=== PATIENT | female | born 1995 | race Caucasian/White ===

== ENCOUNTER 2018-03-11 11:51 | Outpatient (REF) | payer MEDICAID, SELFPAY ==
--- NOTE | 2018-03-11 10:45 | PAPFT_PTH ---
PATIENT: Liza Yee LOC: [facility] U#:[id number] AGE/SX: 22/F ROOM: RE03/11/[address]: BREANNE Vora : 1995 BED: DIS: 03/11/2018 SPEC #: [id number] RECD: 03/11/18 12:54 STATUS: JULIUS REGiuliano #: [id number] EMMA: 03/11/18 10:[address]: Arlet Sullivan DEPT: [facility] Cytology RECD BY: Renée Moncada Tissues: 1 - CX/ENDOCX FOR PAP SMEARS Procedures: PAP THIN PREP/UVM Screening Comments: [id number]
[2018-03-14 14:52] LABS: Chlamydia Result Negative; GC Result Negative; Specimen Description CERVIX
== END 2018-03-11 12:11 ==
LOC: LBN 11:51
PROVIDERS: PCP Nurse Practitioner Family; Visit Provider Nurse Practitioner Family
DX: Z11.3 Encounter for screening for infections with a predominantly sexual mode of transmission (principal); Z12.4 Encounter for screening for malignant neoplasm of cervix
CPT/HCPCS: 87491; 87591; 88142

== ENCOUNTER 2018-07-04 14:24 | Outpatient (CLI) | payer MEDICAID, SELFPAY ==
[2018-07-04 16:02] LABS: HCG Quant, Pregnancy 17213 mIU/mL (1-3)
== END 2018-07-04 14:44 ==
PROVIDERS: PCP Nurse Practitioner Family; Visit Provider Obstetrics & Gynecology
DX: Z32.01 Encounter for pregnancy test, result positive (principal)
CPT/HCPCS: 36415; 84702

== ENCOUNTER 2018-07-06 01:20 | Outpatient (CLI) | payer MEDICAID, SELFPAY ==
--- NOTE | 2018-07-06 09:53 | DI.US_ITS ---
Many abnormalities cannot be diagnosed. A normal exam does not exclude a congenital anomaly. Radiology No. LMP: UNKNOWN Exam Date: 07/06/18 [facility] wks days on EDC ([facility]) Confirmed: HISTORY: ? ECTOPIC VS IUP, BLEEDING IN EARLY , 020.9,Z32.01,CRAMPING PREDICTED GESTATIONAL AGE NUMBER weeks with a range of week to weeks. 1 2 3 Multiple Determined by___1STUS___LMP___HISTORY Info. pertaining to fetus # PLACENTA PRESENTATION Grade Cephalic___ Anterior___Posterior___ Breech____ Right Left Transverse(head right___ Fundal___Low-lying___Previa___ Transverse(head left___ Varying BIOMETRY AMNIOTIC FLUID BPD: mm weeks Normal HC: mm weeks Oligo Polyhydramnios AC: mm weeks FL: mm weeks AMNIOTIC FLUID INDEX >26 WK CRL: mm weeks Cisterna Magna: mm CI: RUQ: LUQ Cerebellum: cm EFW: grams Percentile RLQ: LLQ Total: cms Composite AGE= wks EDC by US BIOPHYSICAL PROFILE ANATOMY IDENTIFIED SCORE 0/2 Heart: 4-Chamber___Rate:BPM LVOT: RVOT: Amniotic Fluid(>2cms)____ Stomach: Kidneys: Respirations (>30 secs) Bladder: Post. Fossa: Body Flex/Extension 3 vessel cord: Ventricles: cord insertion: Lips:____ Extremity Flex/Extension spinal morphology: Nose: Total Score= Palate: NS=not seen There is an early intrauterine gestation. A yolk sac is visualized. The pole is not identified. Note is made of a right ovarian corpus luteum cyst and there is a small quantity of free fluid in the cul-de-sac. SUMMARY: Likely viable, early intrauterine gestation with visualization of the yolk sac. The pole is not seen. A follow up examination in a week to ten days is suggested for further review regarding the viability of this gestation.
[2018-07-06 16:42] LABS: HCG Quant, Pregnancy 26084 mIU/mL (1-3)
== END 2018-07-06 01:40 ==
PROVIDERS: PCP Nurse Practitioner Family; Visit Provider Obstetrics & Gynecology
DX: Z34.91 Encounter for supervision of normal pregnancy, unspecified, first trimester (principal); O20.9 Hemorrhage in early pregnancy, unspecified; Z32.01 Encounter for pregnancy test, result positive; N83.11 Corpus luteum cyst of right ovary
CPT/HCPCS: 36415; 76801; 84702

== ENCOUNTER 2018-07-27 11:41 | Outpatient (CLI) | payer MEDICAID, SELFPAY ==
[2018-07-27 12:16] LABS: Abs Immature Grans 0.03 k/cumm (0.0-0.09); Absolute Basophil Count 0.02 k/cumm (0.0-0.2); Absolute Eosinophil Count 0.14 k/cumm (0.0-0.7); Absolute Lymphocyte Count 2.07 k/cumm (1.2-3.4); Absolute Monocyte Count 0.87 k/cumm (0.11-0.7); Absolute Neutrophil Count 8.41 k/cumm (1.2-6.7); Basophils % 0.2; Eosinophils % 1.2; HCT 35.9 % (36.0-46.0); HGB 12.5 g/dL (12.0-15.5); Immature Grans % 0.3; Lymphocytes % 17.9; Mean Corp. HGB Concentration 34.8 g/dL (32.0-36.0); Mean Corpuscular Hemoglobin 30.2 pg (27.0-33.0); Mean Corpuscular Volume 86.7 fL (80-95); Mean Platelet Volume 10.6 fL (8.0-11.0); Monocytes % 7.5; Neutrophils % 72.9; Platelet Count 246 x1000/uL (130-400); RBC 4.14 m/cumm (4.00-5.20); RBC Distribution Width 12.3 % (11.7-14.6); White Blood Cell Count 11.54 k/cumm (4.4-10.8)
[2018-07-27 13:16] LABS: TSH (W/Ref FT4) 0.95 uIU/mL (0.358-3.74)
[2018-07-28 11:23] LABS: Hepatitis B Surface Ag Negative (NEGAT); Hepatitis C Ab w Rflx HCV PCR Negative (NEGAT)
[2018-07-28 11:24] LABS: HIV-1/2 Ag & Ab Screen Negative (NEGAT)
[2018-07-28 11:32] LABS: Rubella IgG Ab (UVM) Positive; Syphilis Serology (RPR) Negative (Negative); Varicella IgG Antibody Positive
== END 2018-07-27 12:01 ==
PROVIDERS: PCP Nurse Practitioner Family; Visit Provider Advanced Practice Midwife
DX: Z34.91 Encounter for supervision of normal pregnancy, unspecified, first trimester (principal); Z11.4 Encounter for screening for human immunodeficiency virus [HIV]; Z11.59 Encounter for screening for other viral diseases; Z01.84 Encounter for antibody response examination
CPT/HCPCS: 36415; 80055; 86787; 86803; 86850; 86900; 86901; 87340; 87389; 84443; 86592; 86762

== ENCOUNTER 2018-07-27 12:53 | Outpatient (REF) | payer MEDICAID, SELFPAY ==
--- NOTE | 2018-07-27 11:20 | PAPFT_PTH ---
PATIENT: Liza Yee LOC: [facility] U#:[id number] AGE/SX: 23/F ROOM: RE07/27/[address]: Sophy George RN : 1995 BED: DIS: 07/27/2018 SPEC #: [id number] RECD: 07/27/18 13:15 STATUS: JULIUS REGiuliano #: [id number] EMMA: 07/27/18 11:[address]: Sophy George DEPT: [facility] Cytology RECD BY: Renée Moncada ENTERED: 07/27/18 13:15 SP TYPE: PAPFT OTHR DR: Arlet Sullivan, [facility] Tissues: 1 - CX/ENDOCX FOR PAP SMEARS Procedures: PAP THIN PREP/UVM Screening Comments: [id number] (CHLAMYDIA/GC)
[2018-07-27 13:25] LABS: *AMPHETAMINES SCREEN URINE Negative (Negative); *BARBITURATES SCREEN URINE Negative (Negative); *BENZODIAZEPINES SCREEN URINE Negative (Negative); Cannabinoids THC POSITIVE (Negative); Cocaine Screen,Urine Negative (Negative); METHADONE URINE SCREEN Negative (Negative); OPIATES URINE SCREEN Negative (Negative)
[2018-07-27 13:28] LABS: Tricyclic Antidepressants Negative (Negative)
[2018-07-29 14:04] LABS: Chlamydia Result Negative; GC Result Negative; Specimen Description SEE COMMENTS
[2018-07-30 12:55] LABS: Buprenorphine Negative; Norbuprenorphine Negative
== END 2018-07-27 13:13 ==
LOC: LBN 12:53
PROVIDERS: PCP Nurse Practitioner Family; Visit Provider Advanced Practice Midwife
DX: Z34.91 Encounter for supervision of normal pregnancy, unspecified, first trimester (principal); Z12.4 Encounter for screening for malignant neoplasm of cervix; Z11.51 Encounter for screening for human papillomavirus (HPV); Z11.3 Encounter for screening for infections with a predominantly sexual mode of transmission
CPT/HCPCS: 80307; 87491; 87591; 88142; 87086

== ENCOUNTER 2018-09-06 11:00 | Outpatient (CLI) | payer MEDICAID, SELFPAY ==
[2018-09-06 12:40] LABS: HCG Quant, Pregnancy 19962 mIU/mL (1-3)
[2018-09-06 21:14] LABS: D-Dimer (UVM) 298 ng/mL (<230); PTT (UVM) 28 secs (26-37)
[2018-09-07 11:54] LABS: Antithrombin 3, Funct. 89 % (85-125)
[2018-09-07 15:03] LABS: Protein C, Functional 97 % (71-199)
[2018-09-07 15:31] LABS: Protein S, Functional 64 % (64-147)
[2018-09-08 16:57] LABS: Dilute Russell Viper Venom 30.2 secs (27.2-36.9); LA Cascade Summary SEE COMMENTS
== END 2018-09-06 11:20 ==
PROVIDERS: PCP Nurse Practitioner Family; Visit Provider Advanced Practice Midwife
DX: O20.9 Hemorrhage in early pregnancy, unspecified (principal); Z82.49 Family history of ischemic heart disease and other diseases of the circulatory system
CPT/HCPCS: 36415; 81240; 85300; 85303; 85306; 85610; 85613; 85730; 85732; 86147; 81241; 84702; 85240; 85379

== ENCOUNTER 2018-09-28 09:25 | Emergency (ER) | payer MEDICAID, SELFPAY ==
[2018-09-28 09:39] VITALS: BP 116/67; PULSE 90; RESP 12; TEMP 36.8; O2SAT 99
--- NOTE | 2018-09-28 09:50 | DI.US_ITS ---
SYMPTOMS/DIAGNOSIS: RIGHT UPPER QUADRANT/RIGHT LOWER QUADRANT PAIN, EVALUATE OVARIES AND FETUS, ? APPENDICITIS OB ULTRASOUND: Many abnormalities cannot be diagnosed. A normal exam does not exclude a congenital anomaly. Radiology No. [id number] LMP: Exam Date: 09/28/18 [facility] wks days on EDC ([facility]) Confirmed: HISTORY: PREDICTED GESTATIONAL AGE NUMBER 17+1 weeks with a range of week to weeks. 1 Determined by___1STUS___LMP_X__HISTORY PLACENTA PRESENTATION Grade I Cephalic_X__ Anterior_X__Posterior___ Breech____ Right Left Transverse(head right___ Fundal___Low-lying___Previa___ Transverse(head left___ Varying BIOMETRY AMNIOTIC FLUID BPD: mm weeks Normal HC: mm weeks AC: mm weeks FL: mm weeks AMNIOTIC FLUID INDEX >26 WK CRL: mm weeks Cisterna Magna: mm CI: RUQ: LUQ Cerebellum: cm EFW: grams Percentile RLQ: LLQ Total: cms Composite AGE= wks EDC by US BIOPHYSICAL PROFILE ANATOMY IDENTIFIED SCORE 0/2 Heart: 4-Chamber___Rate:BPM 168 LVOT: RVOT: Amniotic Fluid(>2cms)____ Stomach: Kidneys: Respirations (>30 secs) Bladder: Post. Fossa: Body Flex/Extension 3 vessel cord: Ventricles: cord insertion: Lips:____ Extremity Flex/Extension spinal morphology: Nose: Total Score= Palate: NS=not seen COMMENTS: A limited examination was performed. A viable cephalic mejía is demonstrated with a cardiac rate of 168 beats per minute. There is a normal quantity of amniotic fluid. An anterior grade 1 placenta is identified. The ovaries are identified and bilateral ovarian blood flow is seen. ABDOMINAL ULTRASOUND: The aorta and vena cava are normal. The liver has a maximal diameter of 18.2 cm. The patient is status post cholecystectomy. The common duct caliber is 4.6 cm. The spleen measures 9.7 cm. The kidneys are intact; the right kidney measures 13.5, the left kidney 11.9. There is no evidence of abdominal free fluid. Evaluation of the right lower quadrant reveals nothing specific to suggest an acute appendix.
[2018-09-28 10:06] LABS: Bilirubin Negative (Negative); Blood Trace-intact (Negative); Clarity Clear; Glucose Negative (Negative); Ketones Negative (Negative); Leukocyte Esterase Negative (Negative); Nitrite Negative (Negative); Urobilinogen 0.2 EU/dL (Up TO 0.2); pH 7.5 (5-8)
[2018-09-28 10:29] LABS: Lipase 67 U/L (73-393)
[2018-09-28 10:30] LABS: WBC 0-2 HPF (0-5)
[2018-09-28 10:31] LABS: Bacteria Few HPF (Negative); C & S Indicated? No/Sq. Contamination; Casts Negative LPF (Negative); Crystals Negative HPF (Negative); Epithelial Cells Many HPF (Negative); Mucus Moderate (Negative); Other Cells Few Renal (Negative); RBC 0-2 (0-2)
[2018-09-28 10:32] LABS: Abs Immature Grans 0.01 k/cumm (0.0-0.09); Absolute Basophil Count 0.01 k/cumm (0.0-0.2); Absolute Eosinophil Count 0.08 k/cumm (0.0-0.7); Absolute Lymphocyte Count 1.79 k/cumm (1.2-3.4); Absolute Monocyte Count 0.61 k/cumm (0.11-0.7); Absolute Neutrophil Count 4.48 k/cumm (1.2-6.7); Basophils % 0.1; Eosinophils % 1.1; HCT 33.6 % (36.0-46.0); HGB 11.7 g/dL (12.0-15.5); Immature Grans % 0.1; Lymphocytes % 25.6; Mean Corp. HGB Concentration 34.8 g/dL (32.0-36.0); Mean Corpuscular Hemoglobin 30.6 pg (27.0-33.0); Mean Platelet Volume 10.9 fL (8.0-11.0); Monocytes % 8.7; Neutrophils % 64.4; Platelet Count 205 x1000/uL (130-400); RBC 3.82 m/cumm (4.00-5.20); RBC Distribution Width 12.8 % (11.7-14.6); White Blood Cell Count 6.98 k/cumm (4.4-10.8)
[2018-09-28 10:36] LABS: ALT 20 U/L (12-78); AST 11 U/L (15-37); Albumin 3.5 g/dL (3.4-5.0); Alkaline Phosphatase 43 U/L (46-116); Anion Gap 10.4 mmol/L (3-11); BUN 5 mg/dL (7-18); Bilirubin, Total 0.3 mg/dL (0.2-1.0); CO2 23.6 mmol/L (21.0-32.0); CREATININE 0.48 mg/dL (0.55-1.02); Calcium 8.8 mg/dL (8.5-10.1); Chloride 103 mmol/L (98-107); Glucose 83 mg/dL (70-100); Potassium 3.8 mmol/L (3.5-5.1); Sodium 137 mmol/L (136-145); Total Protein 7.2 g/dL (6.4-8.2)
--- NOTE | 2018-09-28 10:46 | ED.GENADUL_ITS ---
Discharge Plan Disposition Patient Disposition: [facility] ([facility]) Condition: Stable Discharge Details Chief Complaint: Abd Prob Clinical Impression: Abdominal pain Primary Care Provider: None,None ED Provider: Santos Gilliland Home Meds and New Rx's Prescriptions: No Action acetaminophen [Tylenol Extra Strength] 500 mg tablet 500 mg PO Q6H PRNRF: 0 prenat.vits,anthony,nzb-xgpy-glxiw tablet 1 tab PO DAILY RF: 0 ondansetron HCl 8 mg tablet 8 mg PO TID PRN (Reason: nausea and vomiting) Qty: 30 RF: 1 Medical Decision Making This is a pleasant 23-year-old female who is a currently 17 weeks who presents today for evaluation of mikayla pain. Pain started this morning, it is in the right lower quadrant as well as the right upper quadrant. No flank or CVA tenderness. No pelvic tenderness. She does have some subjective radiation to the back. She does have a history of cholecystectomy during her previous . She has not eaten anything today secondary to the pain and nausea. She was seen by her heater engineer helper, who recommended she come down here for evaluation rule out appendicitis. Initial exam does demonstrate reproducible right lower quadrant tenderness, worse with jumping. Negative obturator and psoas sign. Laboratory workup demonstrates reassuring vital signs, no significant white count or bandemia. Renal function and electrolytes are normal. Urinalysis shows no evidence of UTI. Ultrasound was performed and demonstrated good blood flow to both ovaries, no significant abnormality. Unfortunately they were unable to visualize the appendix. Patient's pain has continued in spite of the Tylenol, we will order MRI for further evaluation to rule out appe. 3:15 PM The patient's MRI shows no acute abnormality however the appendix was not visualized on the imaging. The patient's pain is actually noticeably worsening, continues to be right upper and right lower in location. We did contact the surgeon Dr. Archer and after her evaluation she is uncertain as to the cause of the patient's symptomatology. At this time she does not feel comfortable keeping the patient overnight here for observation with her current resources. She recommends transfer to an outlying facility such as [facility]. [facility] is currently not accepting patients. We did contact the [facility] and I spoke with , she agrees with the current plan, does recommend transfer for evaluation in their emergency department. She also recommends starting Rocephin and Flagyl which will start here. Patient will be transferred by [facility]. I have extensively reviewed the treatment plan with the patient. I have addressed all patient concerns at this time. I have also discussed the plan with the admitting physician and they agree with the current assessment and plan and have agreed to assume responsibility for the patient. All parties demonstrate verbal understanding and agreement with our assessment and plan at this time. COMMENTS: A limited examination was performed. A viable cephalic mejía is demonstrated with a cardiac rate of 168 beats per minute. There is a normal quantity of amniotic fluid. An anterior grade 1 placenta is identified. The ovaries are identified and bilateral ovarian blood flow is seen. ABDOMINAL ULTRASOUND: The aorta and vena cava are normal. The liver has a maximal diameter of 18.2 cm. The patient is status post cholecystectomy. The common duct caliber is 4.6 cm. The spleen measures 9.7 cm. The kidneys are intact; the right kidney measures 13.5, the left kidney 11.9. There is no evidence of abdominal free fluid. Evaluation of the right lower quadrant reveals nothing specific to suggest an acute appendix. Ordered By: Santos Gilliland DO xam(s) a MRI:MR abdomen wo SYMPTOMS/DIAGNOSIS: RIGHT-SIDED PAIN, ULTRASOUND NEGATIVE FOR OVARIAN PROBLEM, ? APPENDICITIS MRI OF THE ABDOMEN: Axial T2 fat-sat, coronal T2 fat-sat, coronal T1 and axial T1 pulse sequences were performed. The kidneys appear intact. The visualized portions of the l iver, and pancreas and spleen are intact. There is no evidence of bowel obstruction. The appendix is not visualized. No right lower quadrant mass or fluid collection is suggested. An intrauterine gestation is identified. SUMMARY: MRI of the abdomen and pelvis reveals no specific findings to suggest an acute appendix. Ordered By: Santos Gilliland DO CC: HPI General Date/Time Provider Initiated Documentation: 09/28/18 09:50 . HPI Narrative: This is a 23-year-old female who is a currently 17 weeks who presents today for evaluation of abdominal pain. Patient states that this morning she woke up with some abdominal pain that radiates to her rig ht back, she describes it as bilateral, however it is worse on the right, radiating down from the right upper to the right lower abdominal quadrants. She has some nausea but no associated vomiting. Pain is not worsened with movement. Improved by nothing. She denies any urinary symptoms of dysuria, urinary frequency, or hematuria. She denies any vaginal discharge, or vaginal bleeding. She denies any changes in baby's movement. Of note 1 week ago she did fall and hit her back, it was in her lower back and she had some back achiness at that time, which she states is very different from this. She went to see her heater engineer helper, within after evaluation referred her down here to rule out appendicitis. Patient denies any other complaints, no other pertinent history. She does take her vitamins. She does admit to a previous cholecystectomy during her first . Related Data Home Medications Medication Instructions Recorded Confirmed acetaminophen 500 mg tablet 500 mg PO Q6H PRN 07/04/18 09/28/18 1 tab PO DAILY 07/04/18 09/28/18 vitamin,calcium,anpyfpwn-oorf-icsrc acid tablet ondansetron HCl 8 mg tablet 8 mg PO TID PRN #30 tab 08/09/18 09/28/18 Previous Rx's Medication Instructions Recorded ondansetron HCl 8 mg tablet 8 mg PO TID PRN #30 tab 08/09/18 Allergies Allergy/AdvReac Type Severity Reaction Status Date / Time ciprofloxacin HCl Allergy Intermediate Hives Verified 09/28/18 09:42 [From Cipro] sulfamoxole Allergy Intermediate Hives Verified 09/28/18 09:42 General Stated Complaint: Abd Prob NANCY: 3 Review of Systems Review of Systems All systems reviewed & are unremarkable except as noted in HPI and below PFSH Medical History Positive test (Acute) Bartholin gland cyst (Acute) (Acute) H/O pilonidal cyst (Chronic) Cholelithiasis (Resolved 03/30/14) Contraception (Resolved) Surgical History History of tonsillectomy (Chronic) Cholecystectomy (03/30/14) Social History Smoking/Tobacco Use Status: Current every day Alcohol Intake: former Drug use: Daily Substance use type: marijuana Household members: children and other Details: daughter is named [place] Number of Children: 1 Do you feel safe at home: Yes Do you feel safe in your relationship?: Yes Female Reproductive History Menstrual control method: none History History 2 Para 1 Hx # Term Pregnancies 1 Multiple births 0 Hx # Pregnancies 0 Ectopic pregnancies 0 AB induced 0 Hx Number of Living Children 1 AB spontaneous 0 Past Pregnancies Del. Date GA/Weeks # Outcome Route Wgt Sex Labor Lgth Anesthesia Location Prov Complic 03/09/14 40 No Successful vaginal 3.289 kg Female 4.[address] george other Delivery Date: 03/09/14 On 07/27/18 @ 10:37 LELONG,ANEA 3 stiches pp. Exam Narrative Exam Narrative: 1.Const: Well-nourished, Well-developed, appearing stated age 2.Eyes: PERRL, no conjunctival injection, and symmetrical lids. 3.ENT: Atraumatic external nose and ears. Moist MM. Neck: Symmetric, trachea midline, No thyromegaly. 4.CVS: +S1/S2, No murmurs or gallops. Peripheral pulses 2+ and equal in all extremities. Brisk capillary refill in all extremities. 5.RESP: Unlabored respiratory effort. Clear to auscultation bilaterally. No wheezes rales or rhonchi 6.GI: Soft, Nondistended, No hepatosplenomegaly. No guarding or rebound. Appropriately gravid abdomen. Mild reproducible tenderness in the right upper quadrant as well as the right lower quadrant, worse in the right lower quadrant though. Minimal left sided dominant tenderness. Negative obturator and psoas sign. No flank or CVA tenderness. Pain is worsened with heel strike, as well as jumping. No significant pelvic pain on palpation 7.MSK: Normocephalic/Atraumatic, Extremities w/o deformity or ttp No cyanosis or clubbing, Normal movement of all extremities. No midline tenderness to palpation over the CTLS spine. Normal ROM in flexion, extension, side bend, and rotation. Patient has +5 out of 5 strength in the lower extremities in dorsiflexion and plantarflexion, knee flexion and extension, hip flexion and extension. There is +2 over 2 dorsalis pedis pulses bilaterally. There is normal sensation to the skin with light touch at the foot, knee, and hip. Normal saddle sensation. Good sensation over the deep sural nerve area bilaterally. Rectal exam deferred. Reflexes are +2 over 4 in the patellar reflex bilaterally. +5 out of 5 strength in the medial, ulnar, radial nerve distribution bilaterally in the hands as well as intact light touch sensation to these dermatomes on the hands 8.Skin: Warm, Dry. No rashes or lesions. 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 Sensation grossly intact, no focal neurologic deficits. 10.Psych: (AAO) x3. Appropriate mood and affect Course Vital Signs Temperature 36.8 C 09/28/18 09:39 Pulse 90 09/28/18 09:39 Respiratory Rate 12 09/28/18 09:39 Blood Pressure 116/67 09/28/18 09:39 Pulse Oximetry 99 09/28/18 09:39 Temperature 36.8 C 09/28/18 09:39 Temperature Source Temporal Artery Scan 09/28/18 09:39 Pulse 90 09/28/18 09:39 Respiratory Rate 12 09/28/18 09:39 Respiratory Effort Non-Labored 09/28/18 09:41 Blood Pressure 116/67 09/28/18 09:39 Blood Pressure Position Sitting 09/28/18 09:39 Pulse Oximetry 99 09/28/18 09:39 Oxygen Delivery Method Room Air 09/28/18 09:39 Oxygen Flow Rate 0 09/28/18 09:39 Pain Level 9 09/28/18 09:39 Lab/Test Results Lab/Test Results: Laboratory Tests Range/Units 09/28/18 09/28/18 09/28/18 10:00 10:11 10:11 Sodium (136-145) mmol/L 137 Potassium (3.5-5.1) mmol/L 3.8 Chloride (98-107) mmol/L 103 Carbon Dioxide (21.0-32.0) mmol/L 23.6 Anion Gap (3-11) mmol/L 10.4 BUN (7-18) mg/dL 5 L Creatinine (0.55-1.02) mg/dL 0.48 L Estimated GFR/1.73 m2 (mL/min/1.73m2) >= 60.00 Glucose (70-100) mg/dL 83 Calcium (8.5-10.1) mg/dL 8.8 Total Bilirubin (0.2-1.0) mg/dL 0.3 AST (15-37) U/L 11 L ALT (12-78) U/L 20 Alkaline Phosphatase (46-116) U/L 43 L Total Protein (6.4-8.2) g/dL 7.2 Albumin (3.4-5.0) g/dL 3.5 Lipase (73-393) U/L 67 L Urine Color (Yellow) Yellow Urine Clarity Clear Urine pH (5-8) 7.5 Ur Specific [place] (1.005-1.025) 1.020 Urine Protein (Negative) mg/dL Trace H Urine Ketones (Negative) mg/dL Negative Urine Blood (Negative) Trace-intact H Urine Nitrite (Negative) Negative Urine Bilirubin (Negative) Negative Urine Urobilinogen (Up TO 0.2) EU/dL 0.2 Ur Leukocyte Esterase (Negative) Negative Urine RBC (0-2) 0-2 Urine WBC (0-5) HPF 0-2 Ur Epithelial Cells (Negative) HPF Many Urine Crystals (Negative) HPF Negative Urine Bacteria (Negative) HPF Few Urine Casts (Negative) LPF Negative Urine Mucus (Negative) Moderate Urine Other (Negative) Few renal Ur Culture Indicated? No/sq. contamination Urine Glucose (Negative) mg/dL Negative
--- NOTE | 2018-09-28 10:53 | DI.MRI_ITS ---
SYMPTOMS/DIAGNOSIS: RIGHT-SIDED PAIN, ULTRASOUND NEGATIVE FOR OVARIAN PROBLEM, ? APPENDICITIS MRI OF THE ABDOMEN: Axial T2 fat-sat, coronal T2 fat-sat, coronal T1 and axial T1 pulse sequences were performed. The kidneys appear intact. The visualized portions of the liver, and pancreas and spleen are intact. There is no evidence of bowel obstruction. The appendix is not visualized. No right lower quadrant mass or fluid collection is suggested. An intrauterine gestation is identified. SUMMARY: MRI of the abdomen and pelvis reveals no specific findings to suggest an acute appendix.
[2018-09-28] MEDS: Normal Saline 1,000 ML 1000 ML IV ×2 (10:54→12:52)
[2018-09-28] MEDS: ACETAMINOPHEN 1,000 MG/100 ML BTL 400 MG IVPB (10:54)
[2018-09-28 11:03] LABS: HCG Quant, Pregnancy 12234 mIU/mL (1-3)
[2018-09-28 11:15] VITALS: BP 104/46; PULSE 69; RESP 14; TEMP 36.7; O2SAT 100
[2018-09-28] MEDS: MORPHine 10 MG/ML VIAL 4 MG IVP ×2 (12:46→14:30)
[2018-09-28 13:00] VITALS: BP 101/56; PULSE 71; RESP 20; O2SAT 100
[2018-09-28 14:15] VITALS: BP 102/47; PULSE 61; RESP 20; O2SAT 100
[2018-09-28 14:39] VITALS: BP 124/55; PULSE 71; RESP 20; O2SAT 99
[2018-09-28] MEDS: HYDROmorphone 2 MG/ML VIAL (15:04)
[2018-09-28] MEDS: cefTRIAXone 2 GM/50 ML BAG IVPB (15:05)
== END 2018-09-28 15:39 | disposition short-term general hospital (02) ==
PROVIDERS: Emergency Provider Student in an Organized Health Care Education/Training Program
DX: O26.892 Other specified pregnancy related conditions, second trimester (principal); R10.9 Unspecified abdominal pain; Z3A.17 17 weeks gestation of pregnancy
CPT/HCPCS: 36415; 76816; 80053; 83690; 96361; 96365; 96367; 96375; 99284; 74181; 76700; 81003; 81015; 84702; 85025; J0131; J2270

== ENCOUNTER 2018-10-04 00:10 | Outpatient (CLI) | payer MEDICAID, SELFPAY ==
--- NOTE | 2018-10-04 12:46 | DI.US_ITS ---
SYMPTOMS/DIAGNOSIS: ROUTINE CARE, Z34.90 OB ULTRASOUND: Predicted Gestational Age: Indication/History: 18 Wks Range: 17 to 19 Prior US done on: NA Determined by: First US LMP History EDC by prior US: 03/07/19 For multiple gestations: Baby PLACENTA: Grade: 0-I Location: X Anterior Posterior PRESENTATION: X RT LT LOW LYING PREVIA Cephalic Trans (Head RT LT ) Varied X Breech BIOMETRY: Anatomy Identified: BPD: 43 mm 19+1 wks 4 chamber Heart X Heart Rate 144 BPM HC: 165 mm 19+2 wks LVOT X Post Fossa X AC: 140 mm 19+3 wks RVOT X Ventricles X FL: 29 mm 19 wks Stomach X Nose X Bladder X Lips X Cisterna Magna: 4.3 mm CI: 80.6 Kidneys X Palate X Cerebellum: 1.95 mm 3-vessel cord X Spine X EFW: 282 grms % Cord Insertion X NS= not seen Composite Age (US) 19+2 wks Many abnormalities cannot be diagnosed. A normal exam does not exclude congenital abnormality. EDC by US 02/26/19 Amniotic Fluid Index: Normal COMMENTS: RUQ: LUQ: RLQ: LLQ: Total: cm Biophysical Profile: Score 0/2 DIEGO (>2cm) Respirations (>30 sec) Body flexion/extension Extremity flexion/extension TOTAL SCORE COMMENTS: The fetus was in variable position during the exam. The placenta is anterior. The biometric measurements correspond to 19 weeks 2 days. The amount of amniotic fluid appears normal. There is a question of a small echogenic focus in the left ventricle. No additional abnormalities are identified.
== END 2018-10-04 00:30 ==
PROVIDERS: Visit Provider Advanced Practice Midwife
DX: Z34.92 Encounter for supervision of normal pregnancy, unspecified, second trimester (principal)
CPT/HCPCS: 76805

== ENCOUNTER 2018-10-05 13:37 | Outpatient (CLI) | payer MEDICAID, SELFPAY ==
[2018-10-05 14:10] LABS: Kit/Specimen SENT
[2018-10-07 10:44] LABS: AFP 33.8 ng/mL; Calculated age at EDD 24 years; GA used in risk estimate Scan estimate; IVF Pregnancy No; Initial or repeat testing Initial testing; Insulin dependent diabetes No; Maternal Weight 185 lbs; Maternal Weight 84 kg; Number of Fetuses 1; Physician Phone Number 802-748-7300; Prev Pregnancy w/NTD No; RECOMMENDED FOLLOW UP None.; Results Summary Normal risk
[2018-10-14 18:05] LABS: Specimen WB Whole Blood
== END 2018-10-05 13:57 ==
PROVIDERS: PCP General Practice; Visit Provider Advanced Practice Midwife
DX: Z34.92 Encounter for supervision of normal pregnancy, unspecified, second trimester (principal); Z36.89 Encounter for other specified antenatal screening
CPT/HCPCS: 36415; 81329; 82105

== ENCOUNTER 2018-12-07 12:16 | Observation (INO) | payer MEDICAID, SELFPAY | END 2018-12-07 14:33 | disposition home or self-care (01) | PROVIDERS: Admitting Provider Advanced Practice Midwife; PCP General Practice; Visit Provider Advanced Practice Midwife | DX: O21.9 Vomiting of pregnancy, unspecified (principal); Z3A.26 26 weeks gestation of pregnancy; Z87.442 Personal history of urinary calculi | CPT/HCPCS: G0378 ==

== ENCOUNTER 2018-12-12 08:59 | Outpatient (CLI) | payer MEDICAID, SELFPAY ==
[2018-12-12 10:40] LABS: HGB 11.7 g/dL (12.0-15.5); Mean Corp. HGB Concentration 34.4 g/dL (32.0-36.0); Mean Corpuscular Hemoglobin 30.8 pg (27.0-33.0); Mean Corpuscular Volume 89.5 fL (80-95); Mean Platelet Volume 10.7 fL (8.0-11.0); Platelet Count 192 x1000/uL (130-400); RBC Distribution Width 12.6 % (11.7-14.6); White Blood Cell Count 11.44 k/cumm (4.4-10.8)
[2018-12-12 11:15] LABS: Glucose,1 Hr (Glucola) 72 mg/dL (80-140)
== END 2018-12-12 09:19 ==
PROVIDERS: PCP General Practice; Visit Provider Advanced Practice Midwife
DX: Z34.92 Encounter for supervision of normal pregnancy, unspecified, second trimester (principal)
CPT/HCPCS: 36415; 82950; 85027

== ENCOUNTER 2019-01-23 10:31 | Outpatient (CLI) | payer MEDICAID, SELFPAY | END 2019-01-23 10:51 | PROVIDERS: Visit Provider Advanced Practice Midwife | DX: O36.8130 Decreased fetal movements, third trimester, not applicable or unspecified (principal) | CPT/HCPCS: 59025 ==

== ENCOUNTER 2019-01-26 00:18 | Outpatient (CLI) | payer MEDICAID, SELFPAY ==
--- NOTE | 2019-01-26 13:29 | DI.US_ITS ---
SYMPTOMS/DIAGNOSIS: DECREASED MOVEMENT, , Z34.90 OB ULTRASOUND: OB ultrasound was performed utilizing limited third trimester protocol with biophysical profile. Biophysical profile score is 6 out of 8 with respirations not identified. The amniotic fluid index is 14 and there is visually a normal quantity of amniotic fluid. cardiac activity obscured at a rate of 150 bpm. Fetus is in cephalic presentation. Placenta is anterior with no evidence of placenta previa. Predicted Gestational Age: Indication/History: 34+2 Wks Range: 33+2 to 35+2 Prior US done on: Determined by: First US LMP X History EDC by prior US: 03/07/19 For multiple gestations: Baby PLACENTA: Grade: I-II Location: Anterior X Posterior PRESENTATION: RT LT LOW LYING PREVIA Cephalic X Trans (Head RT LT ) Varied Breech BIOMETRY: Anatomy Identified: BPD: mm wks 4 chamber Heart X Heart Rate 150 BPM HC: mm wks LVOT Post Fossa AC: mm wks RVOT Ventricles FL: mm wks Stomach Nose Bladder Lips Cisterna Magna: mm CI: Kidneys Palate Cerebellum: mm 3 vessel cord Spine EFW: grms % Cord Insertion NS= not seen Composite Age (US) wks Many abnormalities cannot be diagnosed. A normal exam does not exclude congenital abnormality. EDC by US Amniotic Fluid Index: Normal COMMENTS: RUQ: 5.1 LUQ: 0.80 RLQ: 3.5 LLQ: 4.3 Total: 14 cm Biophysical Profile: Score 0/2 DIEGO (>2cm) 2 Respirations (>30 sec) 0 Body flexion/extension 2 Extremity flexion/extension 2 TOTAL SCORE 6
== END 2019-01-26 00:38 ==
PROVIDERS: Visit Provider Advanced Practice Midwife
DX: O36.8131 Decreased fetal movements, third trimester, fetus 1 (principal)
CPT/HCPCS: 76815; 76819

== ENCOUNTER 2019-02-01 01:17 | Outpatient (CLI) | payer MEDICAID, SELFPAY ==
--- NOTE | 2019-02-01 10:31 | DI.US_ITS ---
SYMPTOMS/DIAGNOSIS: BPP 6/8 ON PREVIOUS US, Z34.90-SUPERVISION OF NORMAL OB ULTRASOUND, LIMITED: Predicted Gestational Age: Indication/History: 35+1 Wks Range: to Prior US done on: Determined by: First US LMP History EDC by prior US: 03/07/19 For multiple gestations: Baby PLACENTA: Grade: II Location: X Anterior Posterior PRESENTATION: RT LT LOW LYING PREVIA Cephalic X Trans (Head RT LT ) Varied Breech BIOMETRY: Anatomy Identified: BPD: mm wks 4 chamber Heart Heart Rate 147 BPM HC: mm wks LVOT Post Fossa AC: mm wks RVOT Ventricles FL: mm wks Stomach Nose Bladder Lips Cisterna Magna: mm CI: Kidneys Palate Cerebellum: mm 3 vessel cord Spine EFW: grms % Cord Insertion NS= not seen Composite Age (US) wks Many abnormalities cannot be diagnosed. A normal exam does not exclude congenital abnormality. EDC by US Amniotic Fluid Index: [place]lig[place] Normal Polyhydramnios RUQ: LUQ: RLQ: LLQ: Total: cm Biophysical Profile: Score 0/2 DIEGO (>2cm) 2/2 Respirations (>30 sec) 0/2 Body flexion/extension 2/2 Extremity flexion/extension 2/2 TOTAL SCORE 6/8 COMMENTS: OB ultrasound was performed for a biophysical profile score. The biophysical profile score is 6/8. No respirations were observed. The placenta is anterior with no evidence of placenta previa. The fetus is in the cephalic presentation and cardiac rate is 147 bpm.
== END 2019-02-01 01:37 ==
PROVIDERS: Visit Provider Advanced Practice Midwife
DX: Z34.93 Encounter for supervision of normal pregnancy, unspecified, third trimester (principal); Z36.2 Encounter for other antenatal screening follow-up
CPT/HCPCS: 76815; 76819

== ENCOUNTER 2019-02-01 10:51 | Outpatient (CLI) | payer MEDICAID, SELFPAY | END 2019-02-01 11:11 | PROVIDERS: Visit Provider Advanced Practice Midwife | DX: O36.8130 Decreased fetal movements, third trimester, not applicable or unspecified (principal) | CPT/HCPCS: 59025 ==

== ENCOUNTER 2019-02-03 08:43 | Outpatient (CLI) | payer MEDICAID, SELFPAY | END 2019-02-03 09:03 | PROVIDERS: Visit Provider Advanced Practice Midwife | DX: O36.8130 Decreased fetal movements, third trimester, not applicable or unspecified (principal) | CPT/HCPCS: 59025 ==

== ENCOUNTER 2019-02-06 07:54 | Outpatient (CLI) | payer MEDICAID, SELFPAY | END 2019-02-06 08:14 | PROVIDERS: Visit Provider Advanced Practice Midwife | DX: O36.8130 Decreased fetal movements, third trimester, not applicable or unspecified (principal) | CPT/HCPCS: 80307; 59025 ==

== ENCOUNTER 2019-02-06 12:31 | Outpatient (REF) | payer MEDICAID, SELFPAY ==
[2019-02-06 13:43] LABS: *AMPHETAMINES SCREEN URINE Negative (Negative); *BARBITURATES SCREEN URINE Negative (Negative); *BENZODIAZEPINES SCREEN URINE Negative (Negative); Cannabinoids THC POSITIVE (Negative); Cocaine Screen,Urine Negative (Negative); METHADONE URINE SCREEN Negative (Negative); OPIATES URINE SCREEN Negative (Negative)
[2019-02-06 13:44] LABS: Tricyclic Antidepressants Negative (Negative)
[2019-02-08 14:09] LABS: Buprenorphine Negative; Norbuprenorphine Negative
== END 2019-02-06 12:51 ==
LOC: LBN 12:31
PROVIDERS: Visit Provider Advanced Practice Midwife
DX: Z34.93 Encounter for supervision of normal pregnancy, unspecified, third trimester (principal); Z36.85 Encounter for antenatal screening for Streptococcus B
CPT/HCPCS: 80307; 59025; 87081

== ENCOUNTER 2019-02-09 09:07 | Outpatient (CLI) | payer MEDICAID, SELFPAY | END 2019-02-09 09:27 | PROVIDERS: Visit Provider Advanced Practice Midwife | DX: R69 Illness, unspecified (principal) | CPT/HCPCS: 59025 ==

== ENCOUNTER 2019-02-14 07:42 | Outpatient (CLI) | payer MEDICAID, SELFPAY | END 2019-02-14 08:02 | PROVIDERS: Visit Provider Advanced Practice Midwife | DX: O36.8130 Decreased fetal movements, third trimester, not applicable or unspecified (principal) | CPT/HCPCS: 59025 ==

== ENCOUNTER 2019-02-16 07:33 | Outpatient (CLI) | payer MEDICAID, SELFPAY | END 2019-02-16 07:53 | LOC: LBN 07:35 → BCD 07:37 | PROVIDERS: Visit Provider Advanced Practice Midwife | DX: O36.8130 Decreased fetal movements, third trimester, not applicable or unspecified (principal) | CPT/HCPCS: 59025 ==

== ENCOUNTER 2019-02-17 11:59 | Inpatient (IN) | payer MEDICAID, SELFPAY ==
[2019-02-17 12:28] LABS: HCT 38.8 % (36.0-46.0); HGB 13.6 g/dL (12.0-15.5); Mean Corp. HGB Concentration 35.1 g/dL (32.0-36.0); Mean Corpuscular Hemoglobin 30.8 pg (27.0-33.0); Mean Platelet Volume 11.8 fL (8.0-11.0); Platelet Count 157 x1000/uL (130-400); RBC 4.41 m/cumm (4.00-5.20); RBC Distribution Width 12.9 % (11.7-14.6); White Blood Cell Count 11.44 k/cumm (4.4-10.8)
[2019-02-17] MEDS: Oxytocin 10 UNITS/ML VIAL IM (13:25)
[2019-02-17] MEDS: Acetaminophen 325 MG TAB 650 MG PO ×3 (14:33→22:37)
[2019-02-17] MEDS: Ibuprofen 600 MG TAB PO ×2 (14:34→20:44)
[2019-02-17] MEDS: Hamamelis Leaf/Glycerin 100 EACH BOX PR (18:43)
[2019-02-17] MEDS: Calcium Carbonate *TUMS* 500 MG CHEW PO (19:21)
[2019-02-18] MEDS: Ibuprofen 600 MG TAB PO ×3 (02:40→16:32)
[2019-02-18] MEDS: Acetaminophen 325 MG TAB 650 MG PO ×3 (02:40→16:33)
[2019-02-18] MEDS: miSOPROStol 200 MCG TAB 400 MCG SL (03:59)
[2019-02-18] MEDS: Hamamelis Leaf/Glycerin 100 EACH BOX PR (07:46)
[2019-02-18 08:22] LABS: Abs Immature Grans 0.07 k/cumm (0.0-0.09); Absolute Basophil Count 0.02 k/cumm (0.0-0.2); Absolute Eosinophil Count 0.15 k/cumm (0.0-0.7); Absolute Lymphocyte Count 2.38 k/cumm (1.2-3.4); Absolute Monocyte Count 0.97 k/cumm (0.11-0.7); Absolute Neutrophil Count 13.41 k/cumm (1.2-6.7); Basophils % 0.1; Eosinophils % 0.9; HGB 12.3 g/dL (12.0-15.5); Immature Grans % 0.4; Mean Corp. HGB Concentration 34.2 g/dL (32.0-36.0); Mean Corpuscular Hemoglobin 30.3 pg (27.0-33.0); Mean Corpuscular Volume 88.7 fL (80-95); Mean Platelet Volume 12.2 fL (8.0-11.0); Monocytes % 5.7; Neutrophils % 78.9; Platelet Count 166 x1000/uL (130-400); RBC 4.06 m/cumm (4.00-5.20); RBC Distribution Width 12.8 % (11.7-14.6); White Blood Cell Count 16.99 k/cumm (4.4-10.8)
[2019-02-19] MEDS: Ibuprofen 600 MG TAB PO ×2 (00:05→07:02)
[2019-02-19] MEDS: Acetaminophen 325 MG TAB 650 MG PO ×2 (00:05→07:01)
== END 2019-02-19 12:00 | disposition home or self-care (01) | DRG 807 ==
LOC: OBS 12:09
PROVIDERS: Admitting Provider Advanced Practice Midwife; Visit Provider Advanced Practice Midwife
DX: O71.4 Obstetric high vaginal laceration alone (principal); Z37.0 Single live birth; Z3A.37 37 weeks gestation of pregnancy; Z83.2 Family history of diseases of the blood and blood-forming organs and certain disorders involving the immune mechanism; O99.334 Smoking (tobacco) complicating childbirth; F17.210 Nicotine dependence, cigarettes, uncomplicated
CPT/HCPCS: 36415; 85027; 86850; 86900; 86901; 59025; 85025; J2590

== ENCOUNTER 2019-03-16 13:22 | Outpatient (CLI) | payer MEDICAID, SELFPAY ==
[2019-03-16 14:14] LABS: HCT 38.4 % (36.0-46.0); HGB 13.3 g/dL (12.0-15.5); Mean Corp. HGB Concentration 34.6 g/dL (32.0-36.0); Mean Corpuscular Volume 89.5 fL (80-95); Mean Platelet Volume 10.2 fL (8.0-11.0); Platelet Count 292 x1000/uL (130-400); RBC 4.29 m/cumm (4.00-5.20); RBC Distribution Width 12.2 % (11.7-14.6); White Blood Cell Count 8.63 k/cumm (4.4-10.8)
== END 2019-03-16 13:42 ==
PROVIDERS: Visit Provider Obstetrics & Gynecology
DX: Z30.2 Encounter for sterilization (principal); Z01.818 Encounter for other preprocedural examination; Z01.812 Encounter for preprocedural laboratory examination
CPT/HCPCS: 36415; 85027; 86850; 86900; 86901

== ENCOUNTER 2019-03-22 08:08 | Day surgery (SDC) | payer MEDICAID, SELFPAY ==
[2019-03-22] VITALS (8 sets, daily range): BP systolic 97–115; BP diastolic 53–77; PULSE 54–85; RESP 14–21; TEMP 36.2–36.6; O2SAT 96–98
[2019-03-22] MEDS: Lactated Ringers 1,000 ML 125 ML IV ×3 (08:38→10:43)
--- NOTE | 2019-03-22 10:23 | FALL_PTH ---
PATIENT: Liza Yee LOC: [facility] U#:[id number] AGE/SX: 24/F ROOM: RE03/22/[address]: Benji Godfrey MD : 1995 BED: DIS: 03/22/2019 SPEC #: [id number] RECD: 03/22/19 12:57 STATUS: JULIUS REQ #: [id number] EMMA: 03/22/19 10:[address]: Benji Godfrey DEPT: Surgical Specimen RECD BY: Renée Moncada ENTERED: 03/22/19 12:59 SP TYPE: Fall OTHR DR: None Tissues: 1 - FALLOPIAN TUBE (STERILIZATION) 2 - FALLOPIAN TUBE (STERILIZATION) Procedures: GROSS AND MICRO LEVEL 2 Comments: [id number]
[2019-03-22] MEDS: Bupivacaine 0.25% Pres-Free 30 ML VIAL (10:35)
--- NOTE | 2019-03-22 11:02 | W.PM.OP ---
Date of service: 03/22/19 Time of Service: 11:02 Operative Note Operative Note DATE OF PROCEDURE: 03/22/19 PRE-OP DIAGNOSIS: Multiparity and desire for permanent sterilization POST-OP DIAGNOSIS: same PROCEDURE: Laparoscopic bilateral salpingectomy SURGEON: Benji Godfrey ASSISTING SURGEON: Salma Simon ANESTHESIA: GETA ESTIMATED BLOOD LOSS: 0 PATHOLOGY: other (Bilateral salpingectomy) COMPLICATIONS: None Patient was transported to: PACU Patient's condition: stable Findings: Normal uterus, tubes and ovaries. Procedure Description: The patient was taken to the operating room and after adequate general anesthesia was obtained patient had been placed in supine position. The patient was prepped and draped in usual sterile manner. The skin is obtains tissues at the umbilicus were infiltrated with 0.25% Marcaine solution. A small infraumbilical skin incision was then made with a #15 blade scalpel. Sharp dissection was carried down to the underlying layer fascia. The fascia was grasped and elevated with 2 Kostas clamps and incised sharply with a scalpel. The peritoneum was entered with hemostats and S retractors were placed. 2 sutures of 0 Vicryl were placed on either side of the fascial incision. A 10 mm balloon trocar was advanced and secured in place. The pneumoperitoneum to approximately 15 mmHg was established. Two 5 mm ports were placed in the right and left lower quadrant both under direct visualization. Uterus tubes and ovaries were normal in appearance. The appendix is visualized and was noted to be normal in appearance. The rest of the abdominal cavity was normal in appearance. The left fallopian tube was grasped and elevated with a grasper. Dissection was carried across the mesosalpinx with a LigaSure device. Dissection was carried to the proximal tube which was transected. The tube was removed from the abdomen. Attention was then turned to the opposite side where similar procedure was carried out. Excellent hemostasis was noted. Both fallopian tubes were submitted to pathology. The 2 5 mm ports were removed under direct visualization. The abdomen was desufflated and the umbilical trocar was removed. The fascia at the umbilicus was closed with 2 previously placed sutures of 0 Vicryl. A second banpkc-mn-sitql suture was used to complete closure of the fascia. The skin at each incision was closed with interrupted sutures of 4 Monocryl and Dermabond was applied. Procedure was concluded at this point. Sponge, lap and needle counts were correct at the conclusion of the procedure and the patient was transferred to PACU in stable condition.
[2019-03-22] MEDS: oxyCODONE 5 mg/Acetaminophen 325 mg TAB PO ×2 (12:27→13:23)
== END 2019-03-22 13:49 | disposition home or self-care (01) ==
PROVIDERS: Visit Provider Obstetrics & Gynecology
PROC: (CPT 58661; principal; 2019-03-22 09:00)
DX: Z30.2 Encounter for sterilization (principal)
CPT/HCPCS: 58661; 36415; 86850; 86900; 86901; 88302; J0131; J1885; J2250; J2405; J3010

== ENCOUNTER 2019-03-30 17:27 | Outpatient (REF) | payer MEDICAID, SELFPAY ==
--- NOTE | 2019-03-30 13:15 | PAPFT_PTH ---
PATIENT: Liza Yee LOC: [facility] U#:[id number] AGE/SX: 24/F ROOM: RE03/30/[address]: Sade Morris : 1995 BED: DIS: 03/30/2019 SPEC #: [id number] RECD: 03/30/19 17:36 STATUS: JULIUS REQ #: [id number] EMMA: 03/30/19 13:[address]: Sade Morris DEPT: [facility] Cytology RECD BY: Renée Moncada ENTERED: 03/30/19 17:36 SP TYPE: PAPFT OTHR DR: None Tissues: 1 - CX/ENDOCX FOR PAP SMEARS Procedures: PAP THIN PREP/UVM Screening Comments: [id number]
== END 2019-03-30 17:47 ==
LOC: LBN 17:27
PROVIDERS: Visit Provider Advanced Practice Midwife
DX: Z12.4 Encounter for screening for malignant neoplasm of cervix (principal)
CPT/HCPCS: 88142

== ENCOUNTER 2019-05-04 15:37 | Outpatient (REF) | payer MEDICAID, SELFPAY ==
--- NOTE | 2019-05-04 14:20 | ENDO_PTH ---
PATIENT: Liza Yee LOC: [facility] U#:[id number] AGE/SX: 24/F ROOM: RE05/04/[address]: Benji Godfrey MD : 1995 BED: DIS: 05/04/2019 SPEC #: [id number] RECD: 05/04/19 17:28 STATUS: JULIUS REQ #: [id number] EMMA: 05/04/19 14:[address]: Benji Godfrey DEPT: Surgical Specimen RECD BY: Renée Moncada ENTERED: 05/04/19 17:29 SP TYPE: Endo OTHR DR: None Tissues: 1 - ENDOCERVICAL BX/CURRETTE 2 - CERVICAL BIOPSY Procedures: GROSS AND MICRO LEVEL 4 Comments: [id number]
== END 2019-05-04 15:57 ==
LOC: LBN 15:37
PROVIDERS: Visit Provider Obstetrics & Gynecology
DX: N87.9 Dysplasia of cervix uteri, unspecified (principal); N88.8 Other specified noninflammatory disorders of cervix uteri
CPT/HCPCS: 88305

== ENCOUNTER 2019-08-29 14:25 | Emergency (ER) | payer MEDICAID, SELFPAY ==
[2019-08-29 14:31] VITALS: BP 145/67; PULSE 74; RESP 16; TEMP 36.4; O2SAT 98
--- NOTE | 2019-08-29 14:44 | ED.GENADUL_ITS ---
Discharge Plan Disposition Patient Disposition: HOME Condition: Stable Discharge Details Chief Complaint: DentalOral Clinical Impression: Dental infection Primary Care Provider: None,None ED Provider: Gallito Guadalupe Home Meds and New Rx's Prescriptions: New penicillin V potassium 500 mg tablet 500 mg PO TID Qty: 30 RF: 0 No Action acetaminophen [Tylenol Extra Strength] 500 mg tablet 500 mg PO Q6H PRNRF: 0 prenat.vits,anthony,ina-dbhi-pflyf tablet 1 tab PO DAILY RF: 0 Discharge Instructions Instructions: Dental Abscess (ED) Additional Instructions: Penicillin as directed. Cool and/or warm compresses every 2 hours for 20 minutes. Please watch for new or worsening symptoms and return to the ER for any concerns. I would like you to reach out to a dentist using the dental list provided for prompt outpatient dental reassessment Medical Decision Making 24-year-old female presents with left upper dental discomfort. Tooth #14 does appear with fracture and carry no obvious pointing abscess. She does have mild facial swelling. Will provide antibiotic prescription. Will also provide dental list that she may expedite outpatient dental care. She does admit to travel over 14 days ago, is afebrile, was not in a high risk area, and has had no contact with any known coronavirus patients. At this time she would not be considered a person of interest and does not need additional testing. Patient understands and is agreeable to this plan Medical Records Medical records reviewed: Yes I reviewed the patient's medical records. HPI General Mode of arrival: ambulatory . Date/Time Provider Initiated Documentation: 08/29/19 14:25 . Limitations to Documentation: no limitations . Information obtained by: patient . HPI Narrative: This is a 24-year-old female who reports that she broke her tooth, left upper, between 1 and 2 years ago, now having pain and swelling over the past 24 hours. Took nuya-fnn-uzuutso medications with little symptoms. She is currently breast-feeding and she is concerned about an infection. Reports the pain is moderate, swelling is minimal, and does radiate down into her neck on the left side. She denies headache, fevers, ear pain. She does report that her family has had nasal congestion and a mild dry cough, she too has the symptoms, travel to [facility] over 14 days ago. She does state that those symptoms are improving. Related Data Home Medications Medication Instructions Recorded Confirmed acetaminophen 500 mg tablet 500 mg PO Q6H PRN 07/04/18 08/29/19 prenat.vits,anthony,cdg-fytz-zvgkp 1 tab PO DAILY 07/04/18 08/29/19 penicillin V potassium 500 mg PO TID #30 tab 08/29/19 Previous Rx's Medication Instructions Recorded penicillin V potassium 500 mg PO TID #30 tab 08/29/19 Allergies Allergy/AdvReac Type Severity Reaction Status Date / Time ciprofloxacin HCl Allergy Intermediate Hives Verified 08/29/19 14:37 [From Cipro] sulfamoxole Allergy Intermediate Hives Verified 08/29/19 14:37 General Stated Complaint: DentalOral NANCY: 4 Review of Systems Constitutional Constitutional: Denies fever(s) and Denies headache(s) Eyes Eyes: Denies eye discharge ENT Ears, Nose, Mouth, and Throat: Reports dental pain, Denies otalgia, Denies headache(s) and Denies sore throat Cardiovascular Cardiovascular: Denies chest pain and Denies dyspnea Respiratory Respiratory: Reports cough and Denies dyspnea Gastrointestinal Gastrointestinal: Denies abdominal pain, Denies nausea and Denies vomiting Musculoskeletal Musculoskeletal: Denies myalgias Integumentary/Breasts Skin/Breast: Denies rash Neurologic Neurologic: Denies headache(s) ON LICENSE OF [facility] Medical History Cholelithiasis (Resolved 03/30/14) Contraception (Resolved) Marijuana smoker (Acute) Positive test (Acute) (Acute) (Acute) Tobacco dependence (Chronic) Surgical History Bartholin gland cyst (Acute) Cholecystectomy (03/30/14) H/O pilonidal cyst (Chronic) History of tonsillectomy (Chronic) w/ adnoidectomy [place] teeth extracted (Acute) Family History Mother Personal history of gallstones cholecystectomy in her 20's Family history of gallstones several women required surgery at fairly young age Abnormal Pap smear of cervix Sister Abnormal Pap smear of cervix Other Cancer Diabetes Heart disease Social History Smoking/Tobacco Use Status: Current every day Alcohol Intake: former Drug use: Occasionally Substance use type: marijuana Household members: children and other Details: daughter is named Goode Number of Children: 1 Do you feel safe at home: Yes Do you feel safe in your relationship?: Yes Female Reproductive History Menstrual control method: none History History 2 Para 2 Hx # Term Pregnancies 2 Multiple births 0 Hx # Pregnancies 0 Ectopic pregnancies 0 AB induced 0 Hx Number of Living Children 2 AB spontaneous 0 Past Pregnancies Del. Date GA/Weeks # Outcome Route Wgt Sex Labor Lgth Anesthes ia Location Prov Complic 03/09/14 40 No Successful vaginal 3.289 kg Female 4.[address] george other 02/17/19 37 No Successful vaginal 3.062 kg Male A rasheed NEO Hussein Delivery Date: 03/09/14 3 stiches ppOtilio PKCHAPIS JAMES Delivery Date: 02/17/19 No notes to display Exam Const General: cooperative, healthy appearing, comfortable and no acute distress Orientation: alert and awake HENMT Head: normal to inspection, normocephalic and atraumatic Ears: external ears normal, TM's normal bilaterally and EAC's normal Face and sinus: tenderness (Mild left maxillary region with minimal swelling, no pointing abscess) Mouth: oral mucosae normal and moist mucous membranes Teeth and gingiva: fair dentition and other (Tooth #14 with a decay and fracture. Tenderness. No pointing abscess.) Throat: posterior oropharynx normal Eyes Conjunctivae: conjunctivae normal Neck Neck: normal visual inspection, full ROM, trachea midline and supple Lymphatic: lymphadenopathy (Mild left superior-anterior cervical lymphadenopathy) Resp Effort & Inspection: normal respiratory effort and able to speak in complete sentences Auscultation: clear to auscultation bilaterally Cardio Rate: regular rate Rhythm: regular rhythm Skin General skin exam: no rashes or lesions noted Neuro General: patient alert, patient awake, moves all extremities and no focal motor deficits Motor: muscle tone normal throughout Sensory Exam: no sensory deficits noted Psych Appearance: grossly normal Mental Status: mental status grossly normal Course Vital Signs Vital signs: Vital Signs Temperature 36.4 C L 08/29/19 14:31 Pulse 74 08/29/19 14:31 Respiratory Rate 16 08/29/19 14:31 Blood Pressure 145/67 H 08/29/19 14:31 Pulse Oximetry 98 03/17/20 14:31 Temperature 36.4 C L 08/29/19 14:31 Pulse 74 08/29/19 14:31 Respiratory Rate 16 08/29/19 14:31 Respiratory Effort Non-Labored 08/29/19 14:31 Blood Pressure 145/67 H 08/29/19 14:31 Blood Pressure Position Sitting 08/29/19 14:31 Pulse Oximetry 98 08/29/19 14:31 Oxygen Delivery Method Room Air 08/29/19 14:31 Oxygen Flow Rate 0 08/29/19 14:31 Pain Level 8 08/29/19 14:31
== END 2019-08-29 14:50 | disposition home or self-care (01) ==
LOC: ER 14:52
PROVIDERS: Emergency Provider Physician Assistant
DX: R68.84 Jaw pain (principal); K04.7 Periapical abscess without sinus; R22.0 Localized swelling, mass and lump, head
CPT/HCPCS: 99283

== ENCOUNTER 2019-11-08 22:28 | Outpatient (REF) | payer MEDICAID, SELFPAY ==
[2019-11-13 13:18] LABS: Chlamydia Result Negative (Negative); GC Result Negative (Negative)
== END 2019-11-08 22:48 ==
LOC: LBN 22:28
PROVIDERS: Visit Provider Nurse Practitioner Women's Health
DX: Z11.3 Encounter for screening for infections with a predominantly sexual mode of transmission (principal)
CPT/HCPCS: 87491; 87591

== ENCOUNTER 2020-02-15 14:35 | Outpatient (REF) | payer MEDICAID, SELFPAY ==
[2020-02-17 22:22] LABS: Patient Race White; SARS-CoV-2 RNA Undetected (Undetected); SARS-CoV-2 Specimen Source Nasopharynx
== END 2020-02-15 14:55 ==
LOC: NCHCN 14:35
PROVIDERS: Visit Provider Nurse Practitioner Family
DX: Z20.828 Contact with and (suspected) exposure to other viral communicable diseases (principal)
CPT/HCPCS: U0003

== ENCOUNTER 2020-04-02 14:14 | Outpatient (REF) | payer MEDICAID, SELFPAY ==
[2020-04-04 17:44] LABS: COVID-19 RT-PCR Result NEGATIVE (Negative)
== END 2020-04-02 14:34 ==
LOC: NCHCN 14:14
PROVIDERS: Visit Provider Nurse Practitioner Family
DX: R05 Cough (principal)
CPT/HCPCS: U0003

== ENCOUNTER 2020-04-19 09:59 | Emergency (ER) | payer MEDICAID, SELFPAY ==
[2020-04-19 10:09] VITALS: BP 126/75; PULSE 67; RESP 18; TEMP 36.8; O2SAT 100
--- NOTE | 2020-04-19 11:09 | ED.GENADUL_ITS ---
Discharge Plan Disposition Patient Disposition: HOME Condition: Stable Discharge Details Clinical Impression: Headache Primary Care Provider: Charly Hopper ED Provider: Louie Morris Home Meds and New Rx's Prescriptions: Discontinued acetaminophen [Tylenol Extra Strength] 500 mg tablet 500 mg PO Q6H PRNRF: 0 Discharge Instructions Instructions: Migraine Headache (ED) Additional Instructions: Please take ibuprofen over the counter. Take 600mg by mouth every 6 hours as needed for pain. Please take acetaminophen (tylenol) - 650mg every 6 hours by mouth as needed for pain. Please contact your primary care physician to arrange follow-up. Return to the ER for any worsening or new concerning symptoms. Stand Alone Forms: Work Release Referrals: Charly Hopper [employer]INE[employer] [Primary Care Provider] - Medical Decision Making 11:12 -- 25-year-old female with history of migraine headaches, here with headache over the past 2 days consistent with prior severe migraines. Neurologically intact. Plan to give IV fluid, Compazine IV, Benadryl IV, Toradol IV. 13:30 -- Patient reassessed and feeling much better. Plan for outpatient follow-up. Patient is not currently with PCP. I will ask care management to assist in arranging PCP follow-up. Disposition decision was made weighing the risks and benefits of hospitalization versus outpatient treatment, the risk for further decompensation, and the patient's wishes. The patient was stable and requested discharge. Prior to discharge, usual and customary return precautions were reviewed with the patient - this included follow-up instructions and reason to return to the emergency department if condition worsens, does not improve as expected, or other new concerns arise. HPI General Mode of arrival: ambulatory . Date/Time Provider Initiated Documentation: 04/19/20 10:43 . Limitations to Documentation: no limitations . Information obtained by: patient . HPI Narrative: 25-year-old female with history of migraine headaches, smoker, here with chief complaint of migraine headache. Patient notes she has had a headache for the past 3 days, headache is worse this morning. She has associated nausea and vomiting. Headache worse with bright light. Patient notes last headache that she had this bad was 2 years ago. Headache is typical for her migraine headaches. She denies numbness, tingling, fever, visual change. No neck pain or stiffness. Related Data Allergies Allergy/AdvReac Type Severity Reaction Status Date / Time ciprofloxacin HCl Allergy Intermediate Hives Verified 04/19/20 10:12 [From Cipro] sulfamoxole Allergy Intermediate Hives Verified 04/19/20 10:12 General Stated Complaint: Headache NANCY: 3 Review of Systems All systems reviewed & are unremarkable except as noted in HPI and below Constitutional Constitutional: Denies fever(s) Neurologic Neurologic: Reports as per HPI [facility] Medical History (Updated 04/19/20 @ 13:32 by Louie Morris MD) Cholelithiasis (03/30/14) Contraception Internal and external thrombosed hemorrhoids Tobacco dependence Surgical History Bartholin gland cyst Cholecystectomy (03/30/14) H/O pilonidal cyst History of tonsillectomy w/ adnoidectomy [place] teeth extracted Family History Mother Personal history of gallstones cholecystectomy in her 20's Family history of gallstones several women required surgery at fairly young age Abnormal Pap smear of cervix Sister Abnormal Pap smear of cervix Other Cancer Diabetes Heart disease Social History Smoking/Tobacco Use Status: Current every day Smoking risk assessment performed?: Yes Alcohol Intake: former Drug use: Occasionally Substance use type: marijuana Household members: children and other Details: daughter is named Wesley Number of Children: 1 Do you feel safe at home: Yes Do you feel safe in your relationship?: Yes Female Reproductive History Menstrual control method: none History History 2 Para 2 Hx # Term Pregnancies 2 Multiple births 0 Hx # Pregnancies 0 Ectopic pregnancies 0 AB induced 0 Hx Number of Living Children 2 AB spontaneous 0 Past Pregnancies Del. Date GA/Weeks # Outcome Route Wgt Sex Labor Lgth Anesthes ia Location Prov Complic 03/09/14 40 No Successful vaginal 3288.545 g Female 4.[address] ariel harrison 02/17/19 37 No Successful vaginal 3061.748 g Male Sophy Hussein CNM Delivery Date: 03/09/14 3 stiches ppSOPHY PLUNKETT Delivery Date: 02/17/19 No notes to display Exam Const General: cooperative and no acute distress HENMT Head: normocephalic and atraumatic Mouth: moist mucous membranes Eyes Conjunctivae: normal conjunctivae Sclera: normal sclerae Pupils: PERRL, accommodation normal and pupil size bilaterally 5 EOM: EOM intact bilaterally Neck Neck: trachea midline and supple Resp Auscultation: clear to auscultation bilaterally, no rales, no rhonchi and no wheezes Cardio Jugular venous pressure: no JVD Rate: regular rate and not tachycardic Rhythm: regular rhythm GI Palpation: soft, not firm, no guarding, no masses, not rigid and nontender Skin General skin exam: no rashes or lesions noted Neuro General: patient alert, patient awake, patient oriented x3 and tone normal Cranial Nerves: CN's II-XI intact bilaterally Cognition: normal cognition Speech: speech normal Motor: strength 5/5 throughout Sensory Exam: no sensory deficits noted Extrem General: no edema Psych Appearance: grossly normal Mental Status: mental status grossly normal Speech and Movement: speech and movement normal Course Vital Signs Vital signs: Vital Signs Temperature 36.8 C 04/19/20 10:09 Pulse 67 04/19/20 10:09 Respiratory Rate 18 04/19/20 10:09 Blood Pressure 126/75 04/19/20 10:09 Pulse Oximetry 100 04/19/20 10:09 Temperature 36.8 C 04/19/20 10:09 Temperature Source Temporal Artery Scan 04/19/20 10:09 Pulse 67 04/19/20 10:09 Respiratory Rate 18 04/19/20 10:09 Respiratory Effort Non-Labored 04/19/20 10:12 Blood Pressure 126/75 04/19/20 10:09 Blood Pressure Position Sitting 04/19/20 10:09 Pulse Oximetry 100 04/19/20 10:09 Oxygen Delivery Method Room Air 04/19/20 10:09 Oxygen Flow Rate 0 04/19/20 10:09 Pain Level 9 04/19/20 10:09
[2020-04-19] MEDS: Normal Saline 1,000 ML 1000 ML IV (11:31)
[2020-04-19] MEDS: diphenhydrAMINE 50 MG/ML VIAL 25 MG IVP (11:32)
[2020-04-19] MEDS: Prochlorperazine 10 MG/2 ML VIAL IVP (11:32)
[2020-04-19] MEDS: Ketorolac 30 MG/ML VIAL IVP (11:32)
[2020-04-19] MEDS: Normal Saline 50 ML (11:33)
[2020-04-19 13:40] VITALS: BP 111/69; PULSE 56; RESP 16; O2SAT 100
--- NOTE | 2020-04-19 16:49 | NUR.NOTE ---
Referral faxed to [facility] for pcp f/u.Nursing Note:
== END 2020-04-19 13:50 | disposition home or self-care (01) ==
PROVIDERS: Emergency Provider Student in an Organized Health Care Education/Training Program; PCP Nurse Practitioner Family
DX: G43.809 Other migraine, not intractable, without status migrainosus (principal); R11.2 Nausea with vomiting, unspecified
CPT/HCPCS: 36415; 81025; 96361; 96374; 96375; 99284; J0780; J1200; J1885

== ENCOUNTER 2020-06-12 15:07 | Outpatient (REF) | payer MEDICAID, SELFPAY ==
[2020-06-14 14:33] LABS: COVID-19 RT-PCR UVMMC Result Negative (Negative)
== END 2020-06-12 15:27 ==
LOC: NCHCN 15:07
PROVIDERS: PCP Nurse Practitioner Family; Visit Provider Family Medicine
DX: Z20.828 Contact with and (suspected) exposure to other viral communicable diseases (principal)
CPT/HCPCS: U0003

== ENCOUNTER 2020-08-02 19:11 | Outpatient (CLI) | payer MEDICAID, SELFPAY ==
--- NOTE | 2020-08-02 13:14 | DI.RAD_ITS ---
EXAM: XR WRIST LT COMPLETE CLINICAL HISTORY: WRIST JOINT PAIN M25.532, FELL ON ICE. TECHNIQUE: 2D digital imaging was performed. COMPARISON: CR RIGHT HAND COMPLETE from 06/17/2017 FINDINGS: BONES: No acute fracture is present. No bony destructive lesion is seen. JOINTS: The carpal bones are normally aligned. SOFT TISSUE: Normal. IMPRESSION: Unremarkable radiographs of the left wrist. DATA REPOSITORY: RADIATION DOSE DELIVERED:
== END 2020-08-02 19:12 ==
LOC: DI 08-08 19:13
PROVIDERS: PCP Nurse Practitioner Family; Visit Provider Family Medicine
DX: M25.532 Pain in left wrist (principal)
CPT/HCPCS: 73110

== ENCOUNTER 2020-08-08 11:25 | Outpatient (REF) | payer MEDICAID, SELFPAY ==
--- NOTE | 2020-08-08 10:30 | PAPFT_PTH ---
PATIENT: Liza Yee LOC: [facility] U#:[id number] AGE/SX: 25/F ROOM: RE08/08/[address]: BREANNE Vora : 1995 BED: DIS: 08/08/2020 SPEC #: [id number] RECD: 08/08/20 12:58 STATUS: JULIUS REGiuliano #: [id number] EMMA: 08/08/20 10:[address]: Arlet uSllivan DEPT: [facility] Cytology RECD BY: Renée Moncada ENTERED: 08/08/20 12:58 SP TYPE: PAPFT OTHR DR: Charly Hopper Tissues: 1 - CX/ENDOCX FOR PAP SMEARS Procedures: PAP THIN PREP/UVM Screening Comments: [id number]
[2020-08-09 14:51] LABS: Chlamydia Result Negative (Negative); GC Result Negative (Negative)
== END 2020-08-08 11:26 | disposition home or self-care (01) ==
LOC: LBN 11:25
PROVIDERS: PCP Nurse Practitioner Family; Visit Provider Nurse Practitioner Family
DX: R30.0 Dysuria (principal); Z11.3 Encounter for screening for infections with a predominantly sexual mode of transmission; Z12.4 Encounter for screening for malignant neoplasm of cervix
CPT/HCPCS: 87491; 87591; 88142; 87086

== ENCOUNTER 2020-10-01 15:21 | Outpatient (CLI) | payer MEDICAID, SELFPAY ==
--- NOTE | 2020-10-01 12:42 | DI.RAD_ITS ---
EXAM: XR SHOULDER LT COMPLETE 2+V CLINICAL HISTORY: LT SHOULDER PAIN, M25.512 TECHNIQUE: COMPARISON: CR LEFT SHOULDER COMPLETE from 10/22/2011 FINDINGS: Six views were obtained. No bony or soft tissue abnormality seen. IMPRESSION: Negative examination of the shoulder. RADIATION DOSE DELIVERED: Total DLP
== END 2020-10-01 15:41 ==
PROVIDERS: PCP Nurse Practitioner Family; Visit Provider Physician Assistant
DX: M25.512 Pain in left shoulder (principal)
CPT/HCPCS: 73030

== ENCOUNTER 2020-11-06 11:53 | Outpatient (CLI) | payer MEDICAID, SELFPAY ==
--- NOTE | 2020-11-06 11:45 | DI.RAD_ITS ---
Exam(s) XR WRIST LT COMP NAVICULAR EXAM: XR WRIST LT COMP NAVICULAR CLINICAL HISTORY: left wrist pain. TECHNIQUE: 2D digital imaging was performed. COMPARISON: CR XR WRIST LT COMPLETE from 08/02/2020 FINDINGS: There is no evidence of fracture or carpal dislocation. Scaphoid views unremarkable. There is no si gnificant ulnar variance. Bone density is normal. No osseous lesions. IMPRESSION: No significant radiograph findings in the left breast. DATA REPOSITORY: RADIATION DOSE DELIVERED:
== END 2020-11-06 11:54 | disposition home or self-care (01) ==
LOC: DIORS 11:54
PROVIDERS: PCP Nurse Practitioner Family; Referring Provider Nurse Practitioner Family; Visit Provider Physician Assistant
DX: M25.532 Pain in left wrist (principal)
CPT/HCPCS: 73110

== ENCOUNTER 2020-12-05 16:35 | Outpatient (REF) | payer MEDICAID, SELFPAY ==
[2020-12-06 14:43] LABS: Chlamydia Result Negative (Negative); GC Result Negative (Negative)
== END 2020-12-05 16:36 | disposition home or self-care (01) ==
LOC: LBN 16:35
PROVIDERS: PCP Nurse Practitioner Family; Visit Provider Advanced Practice Midwife
DX: Z11.3 Encounter for screening for infections with a predominantly sexual mode of transmission (principal)
CPT/HCPCS: 87491; 87591

== ENCOUNTER 2021-12-29 14:59 | Outpatient (REF) | payer MEDICAID, SELFPAY ==
--- NOTE | 2021-12-29 14:00 | PAPFT_PTH ---
PATIENT: Liza Yee LOC: [facility] U#:[id number] AGE/SX: 26/F ROOM: RE12/29/[address]: BREANNE Vora : 1995 BED: DIS: 12/29/2021 SPEC #: [id number] RECD: 12/29/21 18:52 STATUS: JULIUS REQ #: [id number] EMMA: 12/29/21 14:[address]: Arlet Sullivan DEPT: [facility] Cytology RECD BY: Renée Moncada ENTERED: 12/29/21 18:52 SP TYPE: PAPFT OTHR DR: Ashutosh Carrero Tissues: 1 - CX/ENDOCX FOR PAP SMEARS Procedures: PAP THIN PREP/UVM Screening Comments: [id number]
[2021-12-31 14:00] LABS: Chlamydia Result Negative (Negative); GC Result Negative (Negative)
== END 2021-12-29 15:00 | disposition home or self-care (01) ==
LOC: LBN 14:59
PROVIDERS: PCP Physician Assistant; Visit Provider Nurse Practitioner Family
DX: Z11.3 Encounter for screening for infections with a predominantly sexual mode of transmission (principal); Z12.4 Encounter for screening for malignant neoplasm of cervix
CPT/HCPCS: 87491; 87591; 88142

== ENCOUNTER 2022-10-17 14:57 | Outpatient (REF) | payer MEDICAID, SELFPAY ==
[2022-10-17 16:49] LABS: Bilirubin Negative (Negative); Blood Trace-intact (Negative); Clarity Sl Cloudy (Clear); Glucose Negative (Negative); Ketones Negative (Negative); Leukocyte Esterase Small (Negative); Nitrite Negative (Negative); Specific Gravity >= 1.030 (1.005-1.025)
[2022-10-17 17:01] LABS: Bacteria Rare HPF (Negative); C & S Indicated? No/Sq. Contamination; Crystals Negative HPF (Negative); Epithelial Cells Moderate HPF (Negative); Mucus Negative (Negative); RBC 0-2 HPF (0-2); WBC 0-2 HPF (0-5)
[2022-10-19 12:11] LABS: Chlamydia Result Negative (Negative); GC Result Negative (Negative)
== END 2022-10-17 14:58 | disposition home or self-care (01) ==
LOC: LBN 14:57
PROVIDERS: PCP Physician Assistant; Visit Provider Physician Assistant
DX: N89.8 Other specified noninflammatory disorders of vagina (principal); R30.0 Dysuria; N39.0 Urinary tract infection, site not specified
CPT/HCPCS: 87491; 87591; 81003; 81015; 87480; 87510; 87660

== ENCOUNTER 2022-11-06 15:48 | Emergency (ER) | payer MEDICAID, SELFPAY ==
[2022-11-06] VITALS (39 sets, daily range): BP systolic 78–145; BP diastolic 45–89; PULSE 77–107; RESP 11–20; TEMP 37.9; O2SAT 96–100
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
[2022-11-06 16:37] LABS: Abs Immature Grans 0.15 10^3/uL (0.0-0.06); Absolute Basophil Count 0.06 10^3/uL (0.0-0.2); Absolute Eosinophil Count 0.23 10^3/uL (0.0-0.7); Absolute Lymphocyte Count 2.73 10^3/uL (1.2-3.4); Absolute Monocyte Count 0.73 10^3/uL (0.1-0.8); Absolute Neutrophil Count 7.39 10^3/uL (1.2-6.7); Basophils % 0.5; HCT 39.6 % (36.0-46.0); HGB 13.6 g/dL (11.2-15.7); Immature Grans % 1.3; Lymphocytes % 24.2; MCH 28.9 pg (27.0-33.0); MCHC 34.3 % (32.0-36.0); MCV 84 fL (80-95); MPV 10.1 fL (8.0-11.0); Monocytes % 6.5; Neutrophils % 65.5; Platelet Count 260 10^3/uL (130-400); RBC 4.71 10^6/uL (3.93-5.22); RDW 12.8 % (11.7-14.6); RDW-SD 39.4 fL; WBC 11.29 10^3/uL (4.4-10.8)
[2022-11-06] MEDS: Normal Saline Flush 10 ML SYR IJ (16:40)
[2022-11-06] MEDS: Normal Saline - Diluent 50 ML VIAL IJ (16:41)
[2022-11-06] MEDS: Omnipaque 350 MG/ML 100 ML BTL IJ (16:41)
[2022-11-06 16:42] LABS: INR 0.9 (0.9-1.1); Prothrombin Time 9.6 sec (9.3-11.0)
[2022-11-06 16:46] LABS: Lipase 40 U/L (16-77)
[2022-11-06 16:48] LABS: ALT 16 U/L (14-59); AST 22 U/L (15-37); Albumin 3.6 g/dL (3.4-5.0); Alkaline Phosphatase 60 U/L (46-116); Anion Gap 5.7 mmol/L (3-11); BUN 9 mg/dL (7-18); Bilirubin, Total 0.3 mg/dL (0.2-1.0); CO2 27.3 mmol/L (21.0-32.0); CREATININE 0.6 mg/dL (0.55-1.02); Calcium 8.5 mg/dL (8.5-10.1); Chloride 106 mmol/L (98-107); Estimated GFR 125.31 (mL/min/1.73m2); Glucose 108 mg/dL (74-106); Potassium 3.8 mmol/L (3.5-5.1); Sodium 139 mmol/L (136-145); Total Protein 6.8 g/dL (6.4-8.2)
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
[2022-11-06 16:49] LABS: HCG Qual (Serum) Negative
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
[2022-11-06] MEDS: fentaNYL 100 MCG/2 ML VIAL 50 MCG IVP (17:19)
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
[2022-11-06] MEDS: Normal Saline 1,000 ML 1000 ML IV (17:22)
--- NOTE | 2022-11-06 17:58 | NUR.NOTE ---
Nursing Note: C collar removed from patient, states that it is alright for the collar to be off. Pt also requested for collar to be off.
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
[2022-11-06] MEDS: HYDROmorphone 2 MG/ML SYR 1 MG IVP (19:46)
[2022-11-06] MEDS: HYDROmorphone 2 MG/ML SYR 0.5 MG IVP ×2 (22:06→22:20)
[2022-11-06] MEDS: Nicotine 21 MG/24 HR PATCH TD (22:25)
== END 2022-11-06 22:44 | disposition short-term general hospital (02) ==
PROVIDERS: Physician Assistant; Emergency Provider Emergency Medicine; PCP Physician Assistant
DX: S22.079A Unspecified fracture of T9-T10 vertebra, initial encounter for closed fracture (principal); S22.089A Unspecified fracture of T11-T12 vertebra, initial encounter for closed fracture; V89.2XXA Person injured in unspecified motor-vehicle accident, traffic, initial encounter; Z23 Encounter for immunization
CPT/HCPCS: 73562; 74177; 80053; 83690; 86850; 86900; 86901; 90471; 96374; 96375; 96376; 99285; 70450; 71260; 72125; 73030; 84703; 85025; 85610; J1170; J3010; J3490

== ENCOUNTER 2022-11-18 19:56 | Outpatient (CLI) | payer MEDICAID, SELFPAY ==
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
--- NOTE | 2022-11-18 20:56 | DI.VRAD_ITS ---
PROCEDURE INFORMATION: Exam: XR Right Tibia and Fibula Exam date and time: 11/18/2022 8:04 PM Age: 27 years old Clinical indication: Other: Pain TECHNIQUE: Imaging protocol: Radiologic exam of the right tibia and fibula. Views: 2 views. COMPARISON: CR XR KNEE RT 3V AP,LAT,CHRISTY 11/06/2022 6:23 PM FINDINGS: Bones/joints: Osseous mineralization is normal. There are no inflammatory osseous erosive changes. The joint spaces are maintained without degenerative changes. There are no acute displaced fractures or subluxations. No focal osseous lesions are identified. Soft tissues: Normal. IMPRESSION: Unremarkable. Dictated and Authenticated by: Roshan Stratton MD. Ordering:RITU Sams MD
== END 2022-11-18 20:16 ==
LOC: DI 19:59
PROVIDERS: PCP Physician Assistant; Visit Provider Physician Assistant
DX: M79.604 Pain in right leg (principal); V89.2XXA Person injured in unspecified motor-vehicle accident, traffic, initial encounter; R60.0 Localized edema
CPT/HCPCS: 73562; 73590; 73610

== ENCOUNTER 2022-11-20 00:34 | Outpatient (CLI) | payer MEDICAID, SELFPAY ==
--- NOTE | 2022-11-20 07:00 | DI.US_ITS ---
Exam(s) US LOWER EXTREMITY VENOUS RT EXAM: US LOWER EXTREMITY VENOUS RT CLINICAL HISTORY: right leg swelling,pain,m79.604,m79.89 TECHNIQUE: Right lower extremity venous ultrasound performed using grayscale, color-flow, and spectr al Doppler analysis. COMPARISON: No exams were available for comparison FINDINGS: The right common femoral, femoral and popliteal veins demonstrate normal compressibility, augmentatio n, and color Doppler. The posterior tibial and peroneal veins are patent. The saphenofemoral junctio n is unremarkable. There is no evidence of a Ross cyst. There is a moderate amount edema in the ca lf. IMPRESSION: No evidence of a right lower extremity DVT. DATA REPOSITORY:
== END 2022-11-20 00:54 ==
LOC: DI 00:34
PROVIDERS: PCP Physician Assistant; Visit Provider Physician Assistant
DX: M79.604 Pain in right leg (principal); M79.89 Other specified soft tissue disorders
CPT/HCPCS: 93971

== ENCOUNTER 2023-08-06 14:53 | Outpatient (REF) | payer MEDICAID, SELFPAY ==
[2023-08-07 16:31] LABS: Alcohol Negative mg/dL (Cutoff: 10); Amphetamines Negative; Barbiturates Negative; Benzodiazepines Negative; Cocaine Negative; Opiates Negative; Phencyclidine Negative ng/mL (Cutoff: 25); Tetrahydrocannabinol Presumptive Positive ng/mL (Cutoff: 50)
[2023-08-09 13:13] LABS: Carboxy-THC Interpretation Positive.; Delta-8 CarboxyThc by LC-MS/MS Not Detected ng/mL (Cutoff: 5); Delta-9 CarboxyThc by LC-MS/MS 299 ng/mL (Cutoff: 5)
== END 2023-08-06 14:54 | disposition home or self-care (01) ==
LOC: NCHCN 14:53
PROVIDERS: PCP Physician Assistant; Visit Provider Physician Assistant
DX: F90.8 Attention-deficit hyperactivity disorder, other type (principal); R82.5 Elevated urine levels of drugs, medicaments and biological substances
CPT/HCPCS: 80307; 80349

== ENCOUNTER 2023-11-02 13:21 | Outpatient (REF) | payer MEDICAID, SELFPAY ==
[2023-11-02 20:33] LABS: Bilirubin Negative (Negative); Blood Moderate (Negative); Clarity Cloudy (Clear); Glucose Negative (Negative); Ketones Negative (Negative); Leukocyte Esterase Small (Negative); Nitrite Positive (Negative); Specific Gravity >= 1.030 (1.005-1.025); Urobilinogen 0.2 mg/dL (Up to 0.2)
[2023-11-02 20:40] LABS: RBC >50 HPF (0-2)
[2023-11-02 20:41] LABS: C & S Indicated? Yes; WBC >50 HPF (0-5)
== END 2023-11-02 13:22 | disposition home or self-care (01) ==
LOC: LBN 13:21
PROVIDERS: PCP Physician Assistant; Visit Provider Nurse Practitioner Family
DX: R39.9 Unspecified symptoms and signs involving the genitourinary system (principal); N10 Acute pyelonephritis; B96.20 Unspecified Escherichia coli [E. coli] as the cause of diseases classified elsewhere; B96.89 Other specified bacterial agents as the cause of diseases classified elsewhere
CPT/HCPCS: 87077; 81003; 81015; 87086; 87186

== ENCOUNTER 2024-07-29 14:34 | Emergency (ER) | payer MEDICAID, SELFPAY ==
[2024-07-29 14:37] VITALS: BP 147/88; PULSE 94; RESP 18; TEMP 36.9; O2SAT 97
[2024-07-29 14:41] VITALS: BP 147/88; PULSE 94; RESP 18; TEMP 36.9; O2SAT 97
--- NOTE | 2024-07-29 14:45 | DI.CT_ITS ---
Exam(s) CT ORBITS W EXAM: CT ORBITS W CLINICAL HISTORY: swelling around right eye. TECHNIQUE: Imaging Protocol: Axial computed tomography images with coronal and sagittal reformatted images were created and reviewed. IV contrast: 100 mL Optiray 320 COMPARISON: CT CT HEAD CERVICAL SPINE WO from 11/06/2022 FINDINGS: MAXILLOFACIAL CT SCAN: There is no evidence of facial fractures nor fluid the visualized paranasal sinuses. There is no marc dence of orbital blowout fracture. There is, however, a retention cyst in the right maxillary sinus measuring 1.7 by 1.9 by 1.2 cm no fluid level nor bone dehiscence evident. The opposite-left maxilla ry sinus is clear as are the ethmoidal air cells and frontal sinuses. There is mild mucosal thickeni ng in the right-side of the sphenoid sinus. No fluid levels. No bone dehiscence. There is soft tissue swelling over the right-side of the face and orbit. The findings in the right o vert are predominately preseptal. The retro conal compartment appears unremarkable. Orbital globes appear unremarkable. Retro conal compartments and optic nerves appear unremarkable as do the extra-o cular muscles. There is no gas in soft tissues. There are, however, radiopaque foreign bodies in subcutaneous fat anteriorly, the most prominent bein g anterior to the left frontal sinus and measuring 4 x 3 mm. IMPRESSION: There is soft tissue swelling over the right-side of the face and orbit. No gas in soft tissues. No fractures. Main considerations for infectious process. Facial and periorbital cellulitis (presepta l). Findings discussed by phone with ER physician 07/29/2024 at 4:02 p.m. RADIATION DOSE DELIVERED: 442.7mGy.cm Total DLP DATA REPOSITORY: All CT scans at this facility are submitted to the National Radiology Data Registry (NRDR) Dose Index Registry (DIR) with the [employer] (ACR). RADIATION OPTIMIZATION: All CT scans at this facility use at least one of these dose optimization te chniques: automated exposure control; mA and/or kV adjustment per patient size (includes targeted exa ms where dose is matched to clinical indication); or iterative reconstruction.
--- NOTE | 2024-07-29 14:56 | ED.GENADUL_ITS ---
Discharge Plan Disposition Patient Disposition: Home Condition: Stable Discharge Details Clinical Impression: Periorbital cellulitis Primary Care Provider: Ashutosh Carrero ED Provider: Hernan Chu Home Meds and New Rx's Prescriptions: New amoxicillin-pot clavulanate 875-125 mg tablet 1 tab PO BID Qty: 14 0RF prednisone 20 mg tablet 60 mg PO DAILY 5 Days Qty: 15 0RF clindamycin HCl 150 mg capsule 450 mg PO TID 7 Days Qty: 63 0RF Discontinued dextroamphetamine-amphetamine [Adderall] 20 mg tablet 20 mg PO DAILY methylphenidate HCl 10 mg capsule, ER biphasic 30-70 10 mg PO DAILY rizatriptan [Maxalt] 10 mg tablet 10 mg PO ONCE PRN Rx Instructions: may repeat once after at least 2 hours escitalopram oxalate [Lexapro] 10 mg tablet 10 mg PO DAILY Xarelto 15 mg tablet 15 mg PO QPM Qty: 2 0RF Rx Instructions: must administer with evening meal HPI General Mode of arrival: ambulatory . Date/Time Provider Initiated Documentation: 07/29/24 14:36 . Limitations to Documentation: no limitations . Information obtained by: patient . History of Present Illness 29 year old F presents to the emergency department with the chief complaint of right periorbital swelling, described as moderate, Patient started experiencing this day(s) (2) and it has been constant. No relieving factors improve symptom(s), No exacerbating factors reported . Patient notes no other symptoms.. Patient did receive the following treatments prior to arrival, none Related Data Home Medications ?Medication ?Instructions ?Recorded ?Confirmed amoxicillin 875 mg-potassium 1 tab PO BID #14 tabs 07/29/24 clavulanate 125 mg tablet clindamycin HCl 150 mg capsule 450 mg (3 x 150 mg) PO TID 7 days 07/29/24 #63 caps prednisone 20 mg tablet 60 mg (3 x 20 mg) PO DAILY 5 days 07/29/24 #15 tabs Previous Rx's ?Medication ?Instructions ?Recorded amoxicillin 875 mg-potassium 1 tab PO BID #14 tabs 07/29/24 clavulanate 125 mg tablet clindamycin HCl 150 mg capsule 450 mg (3 x 150 mg) PO TID 7 days 07/29/24 #63 caps prednisone 20 mg tablet 60 mg (3 x 20 mg) PO DAILY 5 days 07/29/24 #15 tabs Allergies Allergy/AdvReac Type Severity Reaction Status Date / Time ciprofloxacin HCl (From Allergy Intermediate Hives Verified 07/29/24 14:40 Cipro) sulfamoxole Allergy Intermediate Hives Verified 07/29/24 14:40 General Stated Complaint: EyeProblem NANCY: 3 Review of Systems All systems reviewed & are unremarkable except as noted in HPI and below Constitutional Constitutional: Denies chills, Denies fever(s) and Denies weakness Eyes Eyes: Denies eye discharge and Denies loss of vision Cardiovascular Cardiovascular: Denies chest pain and Denies dyspnea Respiratory Respiratory: Denies cough and Denies dyspnea Gastrointestinal Gastrointestinal: Denies abdominal pain, Denies nausea and Denies vomiting Musculoskeletal Musculoskeletal: Denies joint swelling Neurologic Neurologic: Denies loss of vision and Denies weakness Psychiatric Psychiatric: Denies depression Exam Const General: no acute distress Orientation: alert HENMT Head: normal to inspection Ears: external ears normal General nose exam: external nose normal Mouth: moist mucous membranes Eyes Periorbital: periorbital findings abnormal Pupils: PERRL EOM: EOM intact bilaterally Neck Neck: normal visual inspection Resp Effort & Inspection: normal respiratory effort and able to speak in complete sentences Cardio Rate: regular rate Skin General skin exam: no rashes or lesions noted Neuro General: patient alert and patient oriented x3 Extrem General: normal to inspection Psych Mental Status: mental status grossly normal Course Vital Signs Vital signs: Vital Signs Temperature 36.9 C 07/29/24 14:37 Pulse 94 H 07/29/24 14:37 Respiratory Rate 18 07/29/24 14:37 Blood Pressure 147/88 H 07/29/24 14:37 Pulse Oximetry 97 07/29/24 14:37 Temperature 36.9 C 07/29/24 14:41 Temperature Source Oral 07/29/24 14:41 Pulse 94 H 07/29/24 14:41 Respiratory Rate 18 07/29/24 14:41 Blood Pressure 147/88 H 07/29/24 14:41 Pulse Oximetry 97 07/29/24 14:41 Medical Decision Making 2-year-old female comes in with 1 to 2 days of worsening swelling around her r ight eye. She says she had a pimple on her right side of her forehead that she popped and then the next day started having swelling around the eye. Denies any pain in the eye itself, no other known trauma to the eye. She is stable on arrival, the right periorbital region is swollen and mildly erythematous. She has a scab on the right temporal artery area where she says she picks her pimple. There is no fluctuance of this area. The eye itself is not red, she has full range of motion of the eye without any pain. I suspect periorbital cellulitis but will check CBC inflammatory markers and obtain a CT to evaluate for possible abscess versus orbital cellulitis. Patient stable, no leukocytosis, minimally elevated CRP. CT shows no evidence of orbital cellulitis. Given this workup I will initiate oral antibiotics with Augmentin and clindamycin as she has a sulfa allergy. She is stable for discharge and will follow-up with either her PCP or express care if not improving this week and return precautions given Differential Diagnosis Differential Diagnosis: Orbital cellulitis, preseptal cellulitis, facial cellulitis Imaging Data Radiologic Study: Attestation: I personally reviewed and interpreted this imaging study as follows: Imaging: CT Scan Radiologist's impression: IMPRESSION: There is soft tissue swelling over the right-side of the face and orbit. No gas in soft tissues. No fractures. Main considerations for infectious process. Facial and periorbital cellulitis (preseptal). Quality:SDOH Health Related Social Needs: No Data to Display PFSH All Active Problems (Updated 07/29/24 @ 16:19 by Hernan Chu MD) Periorbital cellulitis (Acute) Pelvic pain (Acute) Menorrhagia (Acute) Tendinopathy of left biceps tendon (Acute) Screen for STD (sexually transmitted disease) (Acute) Impingement syndrome, shoulder, left (Acute) Internal and external thrombosed hemorrhoids (Acute) Status post tubal ligation (Acute) Adjustment disorder with mixed anxiety and depressed mood (Acute) HGSIL (high grade squamous intraepithelial lesion) on Pap smear of cervix (Acute) Repeat PAP PP Marijuana smoker (Acute) Tobacco dependence (Chronic) Medical History SLAP lesion of left shoulder Biceps tendinitis of left shoulder Contraception Cholelithiasis (03/30/14) Surgical History [place] teeth extracted Bartholin gland cyst H/O pilonidal cyst History of tonsillectomy w/ adnoidectomy Cholecystectomy (03/30/14) Family History Mother Personal history of gallstones cholecystectomy in her 20's Family history of gallstones several women required surgery at fairly young age Abnormal Pap smear of cervix Sister Abnormal Pap smear of cervix Other Cancer Diabetes Heart disease Social History Smoking/Tobacco Use Status: Current every day Tobacco Type: cigarettes and e- cigarettes Smoking risk assessment performed?: Yes Alcohol Intake: former Drug use: Occasionally Substance use type: marijuana Household members: children and other Details: daughter is named Sophia Number of Children: 1 Current gender identity: female Do you feel safe at home: Yes Do you feel safe in your relationship?: Yes Female Reproductive History Menstrual control method: none History History 2 Para 2 Hx # Term Pregnancies 2 Multiple births 0 Hx # Pregnancies 0 Ectopic pregnancies 0 AB induced 0 Hx Number of Living Children 2 AB spontaneous 0 Past Pregnancies Del. Date GA/Weeks # Preg Succ Route Wgt Sex Labor Lgth Anesth esia Location Prov Complic 03/09/14 40 No vaginal 3288.545 g Female 4.5 hrs d r dege other 02/17/19 37 No vaginal 3061.748 g Male Sophy Hussein CNM Delivery Date: 03/09/14 Last Updated by: Sophy Hussein CNM 3 [address].
[2024-07-29] MEDS: Ketorolac 15 MG/ML VIAL IVP (15:04)
[2024-07-29 15:19] LABS: Abs Immature Grans 0.02 10^3/uL (0.0-0.06); Absolute Basophil Count 0.07 10^3/uL (0.0-0.2); Absolute Lymphocyte Count 2.25 10^3/uL (1.2-3.4); Absolute Monocyte Count 0.67 10^3/uL (0.1-0.8); Absolute Neutrophil Count 5.68 10^3/uL (1.2-6.7); Basophils % 0.8 %; Eosinophils % 3.3 %; HCT 40.1 % (36.0-46.0); HGB 13.4 g/dL (11.2-15.7); Immature Grans % 0.2 %; MCH 28.6 pg (27.0-33.0); MCHC 33.4 % (32.0-36.0); MCV 86 fL (80-95); Monocytes % 7.5 %; Neutrophils % 63.2 %; Platelet Count 332 10^3/uL (130-400); RBC 4.69 10^6/uL (3.93-5.22); RDW 12.8 % (11.7-14.6); RDW-SD 39.7 fL; WBC 8.99 10^3/uL (4.4-10.8)
[2024-07-29 15:22] LABS: ESR 18 mm/hr (0-20)
[2024-07-29] MEDS: Normal Saline - Diluent 50 ML VIAL IJ (15:32)
[2024-07-29] MEDS: Omnipaque 350 MG/ML 100 ML BTL IJ (15:36)
[2024-07-29 15:48] LABS: ALT 35 U/L (14-59); AST 21 U/L (15-37); Alkaline Phosphatase 77 U/L (46-116); Anion Gap 3.9 mmol/L (3-11); BUN 11 mg/dL (7-18); Bilirubin, Total 0.25 mg/dL (0.2-1.0); C-Reactive Protein 1.96 mg/dL (<or=0.5); CO2 33.1 mmol/L (21.0-32.0); CREATININE 0.7 mg/dL (0.55-1.02); Calcium 8.8 mg/dL (8.5-10.1); Chloride 103 mmol/L (98-107); Estimated GFR 119.24 (mL/min/1.73m2); Glucose 97 mg/dL (74-106); Magnesium 2.1 mg/dL (1.8-2.4); Potassium 4.1 mmol/L (3.5-5.1); Sodium 140 mmol/L (136-145)
[2024-07-29 15:50] VITALS: BP 127/79; PULSE 83; RESP 14; O2SAT 100
[2024-07-29] MEDS: Clindamycin 150 MG CAP 450 MG PO (16:21)
[2024-07-29] MEDS: Amoxicillin 875/Clav. 125 TAB PO (16:21)
== END 2024-07-29 16:33 | disposition home or self-care (01) ==
PROVIDERS: Emergency Provider Emergency Medicine; PCP Physician Assistant
DX: L03.213 Periorbital cellulitis (principal); F17.290 Nicotine dependence, other tobacco product, uncomplicated; F17.210 Nicotine dependence, cigarettes, uncomplicated; Z79.01 Long term (current) use of anticoagulants
CPT/HCPCS: 80053; 85652; 87637; 96374; 99285; 70481; 83735; 85025; 86140; 99284; J1885; J3490

== ENCOUNTER 2024-07-30 14:51 | Inpatient (IN) | payer MEDICAID, SELFPAY ==
[2024-07-30] VITALS (8 sets, daily range): BP systolic 112–135; BP diastolic 74–81; PULSE 80–109; RESP 16–18; TEMP 36.3–37.6; O2SAT 94–99
--- NOTE | 2024-07-30 15:15 | DI.CT_ITS ---
Exam(s) CT FACIAL W EXAM: CT FACIAL W CLINICAL HISTORY: worsening right sided facial/periorbital swelling. TECHNIQUE: Imaging Protocol: Axial computed tomography images with coronal and sagittal reformatted images were created and reviewed. No IV contrast COMPARISON: CT CT ORBITS W from 07/29/2024 FINDINGS: MAXILLOFACIAL CT SCAN: There is no evidence of facial fractures nor fluid the visualized paranasal sinuses. Post inflammato ry retention cyst in the posterior aspect of the right maxillary sinus is unchanged from recent CT sc an and not associated with a fluid level in the sinus. Remainder of the paranasal sinuses are clear and there also no mastoid air cell effusions The main findings again noted to be large amount of edema over the right-side of the face which has s lightly further increased from yesterday. Also over the right orbit. The right orbital globe and re tro conal compartment appear unremarkable and the periorbital cellulitis remains preseptal. There is no evidence of abnormal density posterior to the orbital septum. No evidence of subperiosteal absce ss. IMPRESSION: As above. Severe right facial and periorbital cellulitis appears to remain preseptal at this time. Close imaging follow-up recommended. Findings discussed by phone with ER physician 07/30/2024 at 5:15 p.m. RADIATION DOSE DELIVERED: 269.61mGy.cm Total DLP DATA REPOSITORY: All CT scans at this facility are submitted to the National Radiology Data Registry (NRDR) Dose Index Registry (DIR) with the [employer] (ACR). RADIATION OPTIMIZATION: All CT scans at this facility use at least one of these dose optimization te chniques: automated exposure control; mA and/or kV adjustment per patient size (includes targeted exa ms where dose is matched to clinical indication); or iterative reconstruction.
--- NOTE | 2024-07-30 15:29 | W.ED.GENAD ---
Discharge Plan Disposition Patient Disposition: Admit to [facility] Condition: Stable Discharge Details Chief Complaint: EyeProblem Clinical Impression: Preseptal cellulitis Primary Care Provider: Ashutosh Carrero ED Provider: Hernan Chu Home Meds and New Rx's Prescriptions: No Action amoxicillin-pot clavulanate 875-125 mg tablet 1 tab PO BID Qty: 14 0RF prednisone 20 mg tablet 60 mg PO DAILY 5 Days Qty: 15 0RF clindamycin HCl 150 mg capsule 450 mg PO TID 7 Days Qty: 63 0RF HPI General Mode of arrival: ambulatory. Date/Time Provider Initiated Documentation: 07/30/24 14:53. Limitations to Documentation: no limitations. Information obtained by: patient. History of Present Illness 29 year old F presents to the emergency department with the chief complaint of right face/periorbital swelling, described as moderate, Quality is described as aching, and is localized to the face, eyes and right. Patient reports no radiation. Patient started experiencing this day(s) (3) and it has been constant. No relieving factors improve symptom(s), No exacerbating factors reported . Patient notes no other symptoms.. Patient did receive the following treatments prior to arrival, none Related Data Home Medications ?Medication ?Instructions ?Recorded ?Confirmed amoxicillin 875 mg-potassium 1 tab PO BID #14 tabs 07/29/24 07/30/24 clavulanate 125 mg tablet clindamycin HCl 150 mg capsule 450 mg (3 x 150 mg) PO TID 7 days 07/29/24 07/30/24 #63 caps prednisone 20 mg tablet 60 mg (3 x 20 mg) PO DAILY 5 days 07/29/24 07/30/24 #15 tabs Previous Rx's ?Medication ?Instructions ?Recorded amoxicillin 875 mg-potassium 1 tab PO BID #14 tabs 07/29/24 clavulanate 125 mg tablet clindamycin HCl 150 mg capsule 450 mg (3 x 150 mg) PO TID 7 days 07/29/24 #63 caps prednisone 20 mg tablet 60 mg (3 x 20 mg) PO DAILY 5 days 07/29/24 #15 tabs Allergies Allergy/AdvReac Type Severity Reaction Status Date / Time ciprofloxacin HCl (From Allergy Intermediate Hives Verified 07/30/24 15:22 Cipro) sulfamoxole Allergy Intermediate Hives Verified 07/30/24 15:22 General Stated Complaint: EyeProblem NANCY: 3 Review of Systems All systems reviewed & are unremarkable except as noted in HPI and below Constitutional Constitutional: Denies chills, Denies fever(s) and Denies weakness Eyes Eyes: Denies loss of vision Respiratory Respiratory: Denies cough Gastrointestinal Gastrointestinal: Denies abdominal pain, Denies nausea and Denies vomiting Integumentary/Breasts Skin/Breast: Reports rash Neurologic Neurologic: Denies loss of vision and Denies weakness Exam Const General: no acute distress Orientation: alert HENMT Ears: external ears normal General nose exam: external nose normal Face and sinus: erythema Mouth: moist mucous membranes Eyes Periorbital: periorbital findings abnormal Conjunctivae: conjunctivae normal Sclera: sclerae normal Pupils: PERRL EOM: EOM intact bilaterally Neck Neck: normal visual inspection Resp Effort & Inspection: normal respiratory effort and able to speak in complete sentences Cardio Rate: regular rate Skin General skin exam: no rashes or lesions noted Neuro General: patient alert and patient oriented x3 Extrem General: normal to inspection Psych Mental Status: mental status grossly normal Course Vital Signs Vital signs: Vital Signs Temperature 37.2 C 07/30/24 15:15 Pulse 109 H 07/30/24 15:15 Respiratory Rate 16 07/30/24 15:15 Blood Pressure 132/77 07/30/24 15:15 Pulse Oximetry 94 07/30/24 15:15 Temperature 37.2 C 07/30/24 15:22 Temperature Source Oral 07/30/24 15:22 Pulse 109 H 07/30/24 15:22 Respiratory Rate 16 07/30/24 15:22 Blood Pressure 132/77 07/30/24 15:22 Blood Pressure Position Sitting 07/30/24 15:22 Pulse Oximetry 94 07/30/24 15:22 Oxygen Delivery Method Room Air 07/30/24 15:22 Oxygen Flow Rate 0 07/30/24 15:15 Pain Level 10 07/30/24 15:22 Medical Decision Making Male who came for facial and periorbital swelling. She was seen yesterday and had labs and CT orbits which did not show evidence of orbital cellulitis. She has been on Augmentin and clindamycin and prednisone and despite this she feels the swelling is worsening. She does have noticeable periorbital swelling on the right with mild erythema and also right facial swelling primarily over the temporal area where she has a scab and states that she had a pimple that she popped a few days ago. Denies any fevers. I am able to visualize the right eye and there is no erythema of the conjunctiva. The pupils are equal and reactive to light and she has full range of motion of the eye. I suspect continued cellulitis versus now possibly having orbital cellulitis. Will repeat CBC, CMP and laboratory markers and obtain CT facial to evaluate for underlying abscess in the skin on the face and also orbital cellulitis. Patient has mild leukocytosis and sed rate and CRP are mildly elevated compared to yesterday. CT still shows no signs of orbital cellulitis or abscess. Given she is worsened over 24 hours with oral antibiotics and will discuss with the hospitalist about admitting for IV antibiotics. Quality:SDOH Health Related Social Needs: No Data to Display PFSH All Active Problems (Updated 07/30/24 @ 17:43 by Hernan Chu MD) Preseptal cellulitis (Acute) Periorbital cellulitis (Acute) Pelvic pain (Acute) Menorrhagia (Acute) Tendinopathy of left biceps tendon (Acute) Screen for STD (sexually transmitted disease) (Acute) Impingement syndrome, shoulder, left (Acute) Internal and external thrombosed hemorrhoids (Acute) Status post tubal ligation (Acute) Adjustment disorder with mixed anxiety and depressed mood (Acute) HGSIL (high grade squamous intraepithelial lesion) on Pap smear of cervix (Acute) Repeat PAP PP Marijuana smoker (Acute) Tobacco dependence (Chronic) Medical History SLAP lesion of left shoulder Biceps tendinitis of left shoulder Contraception Cholelithiasis (03/30/14) Surgical History [place] teeth extracted Bartholin gland cyst H/O pilonidal cyst History of tonsillectomy w/ adnoidectomy Cholecystectomy (03/30/14) Family History Mother Personal history of gallstones cholecystectomy in her 20's Family history of gallstones several women required surgery at fairly young age Abnormal Pap smear of cervix Sister Abnormal Pap smear of cervix Other Cancer Diabetes Heart disease Social History Smoking/Tobacco Use Status: Current every day Tobacco Type: cigarettes and e-cigarettes Smoking risk assessment performed?: Yes Alcohol Intake: former Drug use: Occasionally Substance use type: marijuana Household members: children and other Details: daughter is named Rogelio Number of Children: 1 Current gender identity: female Do you feel safe at home: Yes Do you feel safe in your relationship?: Yes Female Reproductive History Menstrual control method: none History History 2 Para 2 Hx # Term Pregnancies 2 Multiple births 0 Hx # Pregnancies 0 Ectopic pregnancies 0 AB induced 0 Hx Number of Living Children 2 AB spontaneous 0 Past Pregnancies Del. Date GA/Weeks # Preg Succ Route Wgt Sex Labor Lgth Anesthesia Location Prov Complic 03/09/14 40 No vaginal 3288.545 g Female 4.[address] ariel harrison 02/17/19 37 No vaginal 3061.748 g Male Sophy Hussein CNM Delivery Date: 03/09/14 Last Updated by: Sophy Hussein CNM [address]
[2024-07-30] MEDS: Ketorolac 15 MG/ML VIAL IVP (15:56)
[2024-07-30 16:02] LABS: Abs Immature Grans 0.05 10^3/uL (0.0-0.06); Absolute Lymphocyte Count 0.81 10^3/uL (1.2-3.4); Absolute Monocyte Count 0.22 10^3/uL (0.1-0.8); Basophils % 0.3 %; HCT 38.6 % (36.0-46.0); HGB 12.9 g/dL (11.2-15.7); Immature Grans % 0.4 %; MCH 28.5 pg (27.0-33.0); MCHC 33.4 % (32.0-36.0); MCV 85 fL (80-95); MPV 10.2 fL (8.0-11.0); Monocytes % 1.9 %; Neutrophils % 90.4 %; Platelet Count 316 10^3/uL (130-400); RBC 4.52 10^6/uL (3.93-5.22); RDW 12.6 % (11.7-14.6); RDW-SD 38.9 fL; WBC 11.62 10^3/uL (4.4-10.8)
[2024-07-30 16:07] LABS: Absolute Basophil Count 0.03 10^3/uL (0.0-0.2); ESR 27 mm/hr (0-20)
[2024-07-30 16:16] LABS: ALT 68 U/L (14-59); AST 38 U/L (15-37); Albumin 3.8 g/dL (3.4-5.0); Alkaline Phosphatase 89 U/L (46-116); Anion Gap 5.5 mmol/L (3-11); BUN 9 mg/dL (7-18); C-Reactive Protein 4.99 mg/dL (<or=0.5); CO2 28.5 mmol/L (21.0-32.0); CREATININE 0.7 mg/dL (0.55-1.02); Calcium 8.8 mg/dL (8.5-10.1); Chloride 103 mmol/L (98-107); Estimated GFR 119.24 (mL/min/1.73m2); Glucose 128 mg/dL (74-106); Magnesium 2.1 mg/dL (1.8-2.4); Potassium 4.3 mmol/L (3.5-5.1); Sodium 137 mmol/L (136-145); Total Protein 7.7 g/dL (6.4-8.2)
[2024-07-30 16:28] LABS: Procalcitonin < 0.10 ng/mL
[2024-07-30] MEDS: MORPHine 4 MG/ML SYR IVP ×2 (16:33→18:22)
[2024-07-30] MEDS: Normal Saline - Diluent 50 ML VIAL IJ (16:35)
[2024-07-30] MEDS: Omnipaque 350 MG/ML 100 ML BTL IJ (16:38)
[2024-07-30] MEDS: cefTRIAXone 2 GM/50 ML BAG IVPB (18:05)
[2024-07-30] MEDS: VANCOMYCIN 1,500 MG in Normal Saline 250 ML 166.6666 MG IVPB (18:11)
[2024-07-30] MEDS: Ondansetron 4 MG/2 ML VIAL IVP (18:23)
--- NOTE | 2024-07-30 18:46 | W.PM.HP.N ---
Date of service: 07/30/24 Time of Service: 18:47 Assessment and Plan Assessment and plan (1) Periorbital cellulitis: Status: Acute Assessment and plan: Patient has received IV ceftriaxone and vancomycin in the emergency department which we will continue. Blood cultures are pending. No evidence of orbital involvement at this point. Will provide [place] and IV morphine as needed for pain. Continue to closely monitor patient's clinical exam. CODE STATUS: Full DVT prophylaxis: Lovenox Patient's mother Nettie would be her power of deputy prosecuting attorney. History of Present Illness History of Present Illness Chief Complaint: Eye redness and pain Narrative: Patient is a 29-year-old female with past medical history significant for ADHD who presents to the emergency department for the second time in 48 hours with complaints of worsening right eye swelling and erythema. The patient presented to the emergency department last night with complaints of swelling, pain and redness of her right eye after squeezing a pimple near her methodist on the right side of her face 2 days ago. The patient was seen in the emergency room yesterday and started on Augmentin and clindamycin as well as oral prednisone. She did have a CT scan of her orbit yesterday which demonstrated soft tissue swelling over the right side of her face and orbit with no gas in the soft tissues, no fractures and no evidence of orbital involvement. Patient reports that she began taking her antibiotics as well as the prednisone however continued to have increasing redness, swelling and pain surrounding her right eye. The patient reports mild blurry vision but denies pain with movement of her eye. She reports a headache and pressure over her right eye. She reports subjective fevers and chills. She has had some nausea and vomiting associated with her pain. In the emergency department, the patient was afebrile and hemodynamically stable and without hypoxia. Her labs demonstrate a mild leukocytosis of 11,000, while her CMP demonstrated mild transaminitis as well as an elevated CRP of 4.9. Her procalcitonin is not elevated. CT scan of her facial bones demonstrated large edema over the right side of her face which is slightly increased from prior imaging yesterday over the right orbit, with the right orbital globe and retroconal compartment unremarkable and periorbital cellulitis remains preseptal. No evidence of abnormal density posterior to the orbital septum and no evidence of subperiosteal abscess. Findings consistent with severe right facial and periorbital cellulitis which remained preseptal at this point. Given the patient's failure of outpatient antibiotic therapy admission hospitalist service was requested. Review of Systems Narrative: 12 point ROS was obtained and is negative except per HPI PFSH All Active Problems Preseptal cellulitis (Acute) Periorbital cellulitis (Acute) Pelvic pain (Acute) Menorrhagia (Acute) Tendinopathy of left biceps tendon (Acute) Screen for STD (sexually transmitted disease) (Acute) Impingement syndrome, shoulder, left (Acute) Internal and external thrombosed hemorrhoids (Acute) Status post tubal ligation (Acute) Adjustment disorder with mixed anxiety and depressed mood (Acute) HGSIL (high grade squamous intraepithelial lesion) on Pap smear of cervix (Acute) Repeat PAP PP Marijuana smoker (Acute) Tobacco dependence (Chronic) Medical History SLAP lesion of left shoulder Biceps tendinitis of left shoulder Contraception Cholelithiasis (03/30/14) Surgical History [place] teeth extracted Bartholin gland cyst H/O pilonidal cyst History of tonsillectomy w/ adnoidectomy Cholecystectomy (03/30/14) Family History Mother Personal history of gallstones cholecystectomy in her 20's Family history of gallstones several women required surgery at fairly young age Abnormal Pap smear of cervix Sister Abnormal Pap smear of cervix Other Cancer Diabetes Heart disease Social History Smoking/Tobacco Use Status: Current every day Tobacco Type: cigarettes and e-cigarettes Smoking risk assessment performed?: Yes Alcohol Intake: former Drug use: Occasionally Substance use type: marijuana Household members: children and other Details: daughter is named [place] Number of Children: 1 Current gender identity: female Do you feel safe at home: Yes Do you feel safe in your relationship?: Yes Female Reproductive History Menstrual control method: none History History 2 Para 2 Hx # Term Pregnancies 2 Multiple births 0 Hx # Pregnancies 0 Ectopic pregnancies 0 AB induced 0 Hx Number of Living Children 2 AB spontaneous 0 Past Pregnancies Del. Date GA/Weeks # Preg Succ Route Wgt Sex Labor Lgth Anesthesia Location Prov Complic 03/09/14 40 No vaginal 3288.545 g Female 4.[address] ariel harrison 02/17/19 37 No vaginal 3061.748 g Male Sophy Hussein CNM Delivery Date: 03/09/14 Last Updated by: Sophy Hussein CNM 3 stic[address] pp. Meds Allergies and Home Medications Allergies Allergy/AdvReac Type Severity Reaction Status Date / Time ciprofloxacin HCl (From Allergy Intermediate Hives Verified 07/30/24 15:22 Cipro) sulfamoxole Allergy Intermediate Hives Verified 07/30/24 15:22 Home Medications ?Medication ?Instructions ?Recorded ?Confirmed ?Type amoxicillin 875 mg-potassium 1 tab PO BID #14 tabs 07/29/24 07/30/24 Rx clavulanate 125 mg tablet clindamycin HCl 150 mg capsule 450 mg (3 x 150 mg) PO TID 7 days 07/29/24 07/30/24 Rx #63 caps prednisone 20 mg tablet 60 mg (3 x 20 mg) PO DAILY 5 days 07/29/24 07/30/24 Rx #15 tabs Exam Narrative Exam Narrative: Gen: Pleasant young female lying in bed in no acute distress HEENT: Erythema and edema of the right periorbital region extending into the right methodist. Extraocular muscles are intact. Pupils equally round react to light. Mucous membranes are moist. Neck: Supple. Full ROM. No JVD, thyromegaly or lymphadenopathy. CVS: RRR with normal S1/S2. No M/G/R Lungs: Clear to auscultation bilaterally without R/R/W Abdomen: S/NT/ND. No guarding or rebound. No masses Extremities: Warm and well perfused. No C/C/E. Pulses 2/4 in DP/TP Neuro: Alert and oriented x 3. CN 3-12 intact. Normal strength and sensation throughout. Speech is fluent Psych: Appropriate and cooperative Skin: As noted above, erythema and edema of the right periorbital region. Results Imaging Imaging Studies: Maxillofacial CT Severe right facial and periorbital cellulitis appears to remain preseptal at this time. Close imaging follow-up recommended. Labs 07/30/24 15:54 07/30/24 15:54 Labs: Laboratory Results - last 24 hr 07/30/24 15:54 WBC 11.62 H RBC 4.52 Hgb 12.9 Hct 38.6 MCV 85 MCH 28.5 MCHC 33.4 RDW 12.6 Plt Count 316 MPV 10.2 Immature Gran % 0.4 Neutrophils % 90.4 Lymphocytes % 7.0 Monocytes % 1.9 Eosinophils % 0.0 Basophils % 0.3 Nucleated RBC % 0.0 Absolute Neutrophils 10.50 H Absolute Lymphocytes 0.81 L Absolute Monocytes 0.22 Absolute Eosinophils 0.00 Absolute Basophils 0.03 ESR 27 H Sodium 137 Potassium 4.3 Chloride 103 Carbon Dioxide 28.5 Anion Gap 5.5 BUN 9 Creatinine 0.7 Est GFR (CKD-EPI 2020) 119.24 Glucose 128 H Calcium 8.8 Magnesium 2.1 Total Bilirubin 0.40 AST 38 H ALT 68 H Alkaline Phosphatase 89 C-Reactive Protein 4.99 H Total Protein 7.7 Albumin 3.8 Procalcitonin < 0.10 Last Vital Signs Temp 37.2 C 07/30/24 15:22 Pulse 92 H 07/30/24 18:13 Resp 16 07/30/24 15:22 BP 120/74 07/30/24 18:13 Pulse Ox 94 07/30/24 15:22 Time Spent Time spent with Patient: 55-74 minutes Time was spent: preparing to see the patient(eg.review tests), obtaining and/or reviewing separately otained hiistory, ordering medications,tests, procedures, referring, communicating with other health insurance healthcare representative (Spoke with Dr. Randall in the ED), indepentently interpreting results, counseling the patient and care coordination
[2024-07-30 19:05] LABS: HCG Qual (Serum) Negative
[2024-07-30] MEDS: Acetaminophen 325 MG TAB PO (20:18)
[2024-07-30] MEDS: HYDROcodone 5/Acetaminophen 325 TAB PO (20:18)
[2024-07-30] MEDS: Enoxaparin 40 MG/0.4 ML SYR SC (20:18)
[2024-07-30] MEDS: Normal Saline Flush 10 ML SYR IVP (20:19)
[2024-07-30] MEDS: Lactated Ringers 1,000 ML 75 ML IV (20:19)
--- NOTE | 2024-07-30 20:55 | W.PC.ACHO ---
Registration Status: Primary Language: Preferred Language: ED Information & Data Chief Complaint EyeProblem 07/30/24 15:32 Triage Note patient was seen in this 07/30/24 15:15 department yesterday with swelling to the right eye. patient state she started the medications but the eye has gotten worsen. the swelling has increased and now she is having difficulty seeing from the eye. patient reported initially there was pimple close to the eye which she popped but nothing came from it pimple since the swelling started. reported unbearable amount of pressure and pain coming from the eye. the pain swelling has now expanded to the middle of her forehead and to the right cheek Medical / Surgical History (Last Reviewed 07/30/24 @ 18:52 by Cony Cervantes MD) SLAP lesion of left shoulder Biceps tendinitis of left shoulder Contraception Cholelithiasis (03/30/14) (Last Reviewed 07/30/24 @ 18:52 by Cony Cervantes MD) [place] teeth extracted Bartholin gland cyst H/O pilonidal cyst History of tonsillectomy Cholecystectomy (03/30/14) Most Recent Vital Signs Temperature 37.6 C H 07/30/24 19:54 Temperature Source Oral 07/30/24 15:22 Pulse 84 07/30/24 19:54 Pulse Rhythm Regular 07/30/24 19:54 Respiratory Rate 18 07/30/24 19:54 Respiratory Effort Normal, Non-Labored 07/30/24 19:54 Respiratory Depth Normal 07/30/24 19:54 Respiratory Pattern Normal 07/30/24 19:54 Blood Pressure 135/81 07/30/24 19:54 Blood Pressure Mean 94 07/30/24 19:42 Blood Pressure Position Sitting 07/30/24 15:22 Pulse Oximetry 99 07/30/24 19:54 Oxygen Delivery Method Room Air 07/30/24 19:54 Oxygen Flow Rate 0 07/30/24 19:54 Pain Level 8 07/30/24 19:54 Allergies ciprofloxacin HCl (From Cipro) Allergy (Intermediate, Verified 07/30/24 15:22) Hives sulfamoxole Allergy (Intermediate, Verified 07/30/24 15:22) Hives Active Medications Generic Name Dose Route Start Last Admin Trade Name Freq PRN Reason Stop Dose Admin Acetaminophen 0 mg 07/30/24 19:54 07/30/24 20:18 Acetaminophen 325 Mg Tab PO 325 mg Q4H PRN PRN Administration Hydrocodone Bitart/Acetaminophen 1 tab 07/30/24 19:54 07/30/24 20:18 Hydrocodone 5/Acetaminophen 325 Tab PO 1 tab Q6H PRN PRN Administration Enoxaparin Sodium 40 mg 07/30/24 19:54 07/30/24 20:18 Enoxaparin 40 Mg/0.4 Ml Syr SC 40 mg Q24H LIAN Administration Ringer's Solution 1,000 mls @ 75 mls/hr 07/30/24 19:54 07/30/24 20:19 IV 75 mls/hr INFUSION LIAN Administration Iohexol 100 ml 07/30/24 16:45 07/30/24 16:38 Omnipaque 350 Mg/Ml 100 Ml Btl IJ 08/29/24 23:59 100 ml DIRECTED LIAN Administration Sodium Chloride 0 ml 07/30/24 20:00 07/30/24 20:19 Normal Saline Flush 10 Ml Syr IVP 20 ml BID LIAN Administration Sodium Chloride 50 ml 07/30/24 16:45 07/30/24 16:35 Normal Saline - Diluent 50 Ml Vial IJ 50 ml .FOR DI USE LIAN Administration IV IV Catheter Type [Right Saline Lock Antecubital] IV Catheter Gauge [Right 18 Antecubital] Diet Orders Category Date Time Status Regular/Normal [DIET] Nutrition 07/30/24 Dinner Active Diagnostics 07/30/24 Range/Units 15:54 WBC 11.62 H (4.4-10.8) 10^3/uL RBC 4.52 (3.93-5.22) 10^6/uL Hgb 12.9 (11.2-15.7) g/dL Hct 38.6 (36.0-46.0) % MCV 85 (80-95) fL MCH 28.5 (27.0-33.0) pg MCHC 33.4 (32.0-36.0) % RDW 12.6 (11.7-14.6) % Plt Count 316 (130-400) 10^3/uL MPV 10.2 (8.0-11.0) fL Immature Gran % 0.4 % Neutrophils % 90.4 % Lymphocytes % 7.0 % Monocytes % 1.9 % Eosinophils % 0.0 % Basophils % 0.3 % Nucleated RBC % 0.0 (0.0-0.3) % Absolute Neutrophils 10.50 H (1.2-6.7) 10^3/uL Absolute Lymphocytes 0.81 L (1.2-3.4) 10^3/uL Absolute Monocytes 0.22 (0.1-0.8) 10^3/uL Absolute Eosinophils 0.00 (0.0-0.7) 10^3/uL Absolute Basophils 0.03 (0.0-0.2) 10^3/uL ESR 27 H (0-20) mm/hr Sodium 137 (136-145) mmol/L Potassium 4.3 (3.5-5.1) mmol/L Chloride 103 (98-107) mmol/L Carbon Dioxide 28.5 (21.0-32.0) mmol/L Anion Gap 5.5 (3-11) mmol/L BUN 9 (7-18) mg/dL Creatinine 0.7 (0.55-1.02) mg/dL Est GFR (CKD-EPI 2020) 119.24 (mL/min/1.73m2) Glucose 128 H (74-106) mg/dL Calcium 8.8 (8.5-10.1) mg/dL Magnesium 2.1 (1.8-2.4) mg/dL Total Bilirubin 0.40 (0.2-1.0) mg/dL AST 38 H (15-37) U/L ALT 68 H (14-59) U/L Alkaline Phosphatase 89 (46-116) U/L C-Reactive Protein 4.99 H (<or=0.5) mg/dL Total Protein 7.7 (6.4-8.2) g/dL Albumin 3.8 (3.4-5.0) g/dL Procalcitonin < 0.10 ng/mL Serum HCG, Qual Negative 07/30/24 18:00 Blood Culture - Pending Blood 07/30/24 18:00 Blood Culture - Pending Blood Intake and Output - 24 Hour Total 07/30/24 14:51 thru 07/30/24 20:14 Intake Total 300 Balance 300 Weight 86.183 kg Intake: IV 300 Other: Urine Appearance Clear Falls Risk Assessment History of Falls No History 07/30/24 19:54 Contributing Factors No Factors 07/30/24 19:54 Ambulatory Aids Independent 07/30/24 19:54 Tubes/Lines W/no contributing factors 07/30/24 19:54 Gait Evaluation No gait disturbance 07/30/24 19:54 Cognition No cognitive impairment 07/30/24 19:54 Fall Total Score 10 07/30/24 19:54 Level of Risk Standard/Low Risk 07/30/24 19:54 Problems (Last Reviewed 07/30/24 @ 18:52 by Cony Cervantes MD) Periorbital cellulitis (Acute) v v v v v v v v v Sending and/or Receiving Nurses: Please use comment section below to note any information pertinent to the patient hand-off not included above. Information / Comments: Pt returning to ED with increased swelling to R eye after attempting to pop a pimple on her lutheran. She had been seen previously for this, was on PO abx with little effect. 8/10 pain. Given IV Morphine 4mg and IV Zofran for nausea. A&Ox4, VSS. Report received from: Elidia Okeefe RN
--- NOTE | 2024-07-31 | DI.MRI_ITS ---
Exam(s) MR ORBIT FACIAL NECK WO/W EXAM: MR ORBIT FACIAL NECK WO/W CLINICAL HISTORY: ? orbital cellulitis, sign worsening on IV therapy TECHNIQUE: Multiplanar multisequence MRI was performed. Both pre and post contrast infused sequences were performed. IV contrast = 18 mL Dotarem COMPARISON: No exams were available for comparison FINDINGS: There is prominent soft tissue swelling over the right-side of the face and right orbit. There is a suggestion of an abscess over the right-side of the face over the right zygomatic region and exhibits continuity to the skin surface.. ORBITS: No evidence of proptosis nor in ophthalmic Mohs. No evidence of dysconjugate gaze. The ante rior and posterior chambers of the globes are intact. The retrobulbar fat is unremarkable. Extraocula r muscles are unremarkable. Cellulitis appears to be preseptal. There is no abnormal signal nor enhancement within the postsepta l/intraorbital compartment. No evidence of periosteal abscess. OPTIC NERVES: The intracranial and extracranial portions of the optic nerves are within normal limits . No abnormal enhancement in the optic nerves. Optic chiasm is within normal limits. PITUITARY GLAND/CAVERNOUS SINUSES: No evidence of pituitary gland mass nor mass in the suprasellar ci fabian. The pituitary infundibulum appears unremarkable. No evidence of thrombosis of the cavernous sinus. SOFT TISSUES: Lacrimal glands appear unremarkable. Remaining soft tissues are unremarkable. OTHER FINDINGS: None. IMPRESSION: There is prominent subcutaneous edema in the right-side of the face temporal subcutaneous tissues and right periorbital region. The epicenter of infection inflammatory process is over the right zygomati c process with linear fluid regions centered in this region, 1 measuring 16 x 5 mm and connected to a nother measuring 1.4 x 0.4 cm with connection to the skin. Consistent with subcutaneous abscess and s urrounding inflammatory change and right facial inflammatory edema. The inflammatory process reaches the region of the right orbit but there is no evidence of postseptal involvement of the right orbital structures. DATA REPOSITORY:
[2024-07-31] MEDS: Normal Saline Flush 10 ML SYR IVP ×8 (00:43→20:58)
[2024-07-31] MEDS: MORPHine 10 MG/ML VIAL IVP ×2 (00:43→10:05)
[2024-07-31 03:55] VITALS: BP 100/78; PULSE 79; RESP 16; TEMP 36.5; O2SAT 99
[2024-07-31] MEDS: Acetaminophen 325 MG TAB PO ×2 (05:18→16:22)
[2024-07-31] MEDS: HYDROcodone 5/Acetaminophen 325 TAB PO ×3 (05:18→20:58)
[2024-07-31 05:29] LABS: HCT 37.9 % (36.0-46.0); HGB 12.7 g/dL (11.2-15.7); MCH 28.7 pg (27.0-33.0); MCHC 33.5 % (32.0-36.0); MCV 86 fL (80-95); MPV 10.4 fL (8.0-11.0); Platelet Count 291 10^3/uL (130-400); RBC 4.42 10^6/uL (3.93-5.22); RDW 12.5 % (11.7-14.6); RDW-SD 39.5 fL; WBC 9.43 10^3/uL (4.4-10.8)
[2024-07-31 05:47] LABS: Anion Gap 8.1 mmol/L (3-11); BUN 10 mg/dL (7-18); CO2 29.9 mmol/L (21.0-32.0); CREATININE 0.6 mg/dL (0.55-1.02); Calcium 8.7 mg/dL (8.5-10.1); Chloride 105 mmol/L (98-107); Estimated GFR 123.76 (mL/min/1.73m2); Glucose 107 mg/dL (74-106); Potassium 3.8 mmol/L (3.5-5.1); Sodium 143 mmol/L (136-145); Vancomycin, Random 4.7 ug/mL
[2024-07-31] MEDS: VANCOMYCIN 1,500 MG in Normal Saline 250 ML 166.667 MG IVPB (06:18)
[2024-07-31] MEDS: Water,Injection,Sterile 10 ML VIAL (06:18)
[2024-07-31 07:19] VITALS: BP 127/82; PULSE 81; RESP 16; TEMP 36.8; O2SAT 99
--- NOTE | 2024-07-31 07:32 | NUR.NOTE ---
Nursing Note: pt states she takes adderal and ritalin on a regular basis daily but missed last doctors appt two weeks ago to have them refilled and has not taken any since.
[2024-07-31] MEDS: Lactated Ringers 1,000 ML 75 ML IV (09:48)
[2024-07-31 10:43] VITALS: BP 125/73; PULSE 96; RESP 16; TEMP 36.6; O2SAT 98
--- NOTE | 2024-07-31 10:52 | PDOC.CMIN ---
Date of service: 07/31/24 Time of Service: 10:52 Care Management Initial Assmt Initial Assessment Reason for Hospitalization: periorbital cellulitis Functional Status/Living Situation Patient Presentation: Liza was sitting up in bed when CM met with her. She was polite and agreeable to conversation. Liza was admitted with periorbital cellulitis. She is receiving IV antibiotics and analgesics for pain control. Liza lives in a mobile home in [place] with her reilly PIERSON. She has 3 children that also live with them and he has 2 children who are there parts salesman. Liza is not currently employed. She is independent at baseline with ADLs and self-care. She receives fuel and food assistance but no other services. Town of Residence: [place], [place] Resides with: Other (reilly PIERSON and 3 children) Significant Other/Family: Local Natural Supports: fiancee and family Employment Status: Unemployed Instrumental Activities of Daily Living (ADLs): Independent Medications Medication Management: No Issues/Barriers identified Physical Functioning/Mobility Assistive Device: none Advance Directives Advance Directives: Do you have an Advance Directive: N 02/15/20 11:14 AD On File at [facility]: N 02/15/20 11:14 Date Asked 07/30/24 07/30/24 14:55 AD Date Reviewed COLST On File at [facility] COLST Date Scanned Code Status Resuscitation Status Full Code Portal Pt does not currently have a portal and education provided: Yes Insurance Coverage/Financial Issues Insurance: Medicaid Care Team Visit Care Team Role Provider Type Priscilla Luevano NP NURSE PRACTITIONER Ashutosh Carrero Primary Care Provider NON-[facility] STAFF PHYSICIAN Hernan Chu MD Emergency Provider [facility] STAFF PHYSICIAN Cony Cervantes MD Admit Provider [facility] STAFF PHYSICIAN Attending Provider Discharge Potential Discharge Needs: PCP F/U Appt Anticipated Barriers to Discharge: None Identified Patient/Family Education Needs: Review discharge instructions, discuss Ask Me Three Transportation: Private vehicle Plan: Anticipate Liza will be discharged home with no new services when medically cleared. She will follow up with her community providers and plan of care and transport with family. CM will follow and continue to support discharge planning efforts. Social Determinants of Health Screening Will the Patient Participate in the Screening?: Declined to provide PFSH All Active Problems Preseptal cellulitis (Acute) Periorbital cellulitis (Acute) Pelvic pain (Acute) Menorrhagia (Acute) Tendinopathy of left biceps tendon (Acute) Screen for STD (sexually transmitted disease) (Acute) Impingement syndrome, shoulder, left (Acute) Internal and external thrombosed hemorrhoids (Acute) Status post tubal ligation (Acute) Adjustment disorder with mixed anxiety and depressed mood (Acute) HGSIL (high grade squamous intraepithelial lesion) on Pap smear of cervix (Acute) Repeat PAP PP Marijuana smoker (Acute) Tobacco dependence (Chronic) Medical History SLAP lesion of left shoulder Biceps tendinitis of left shoulder Contraception Cholelithiasis (03/30/14) Surgical History [place] teeth extracted Bartholin gland cyst H/O pilonidal cyst History of tonsillectomy w/ adnoidectomy Cholecystectomy (03/30/14) Family History Mother Personal history of gallstones cholecystectomy in her 20's Family history of gallstones several women required surgery at fairly young age Abnormal Pap smear of cervix Sister Abnormal Pap smear of cervix Other Cancer Diabetes Heart disease Social History Smoking/Tobacco Use Status: Current every day Tobacco Type: cigarettes and e-cigarettes Smoking risk assessment performed?: Yes Alcohol Intake: former Drug use: Occasionally Substance use type: marijuana Household members: children and other Details: daughter is named [place] Housing: house Number of Children: 1 Current gender identity: female Do you feel safe at home: Yes Do you feel safe in your relationship?: Yes Female Reproductive History Menstrual control method: none History History 2 Para 2 Hx # Term Pregnancies 2 Multiple births 0 Hx # Pregnancies 0 Ectopic pregnancies 0 AB induced 0 Hx Number of Living Children 2 AB spontaneous 0 Past Pregnancies Del. Date GA/Weeks # Preg Succ Route Wgt Sex Labor Lgth Anesthesia Location Prov Complic 03/09/14 40 No vaginal 3288.545 g Female 4.[address] ariel harrison 02/17/19 37 No vaginal 3061.748 g Male Sophy Hussein CNM Delivery Date: 03/09/14 Last Updated by: Sophy Hussein CNM 3 chris lacy.
--- NOTE | 2024-07-31 11:53 | W.PM.PROGNOT ---
Date of Service Date of service: 07/31/24 Time of Service: 11:53 Assessment and Plan Assessment and plan (1) Preseptal cellulitis: Status: Acute Assessment and plan: No evidence of orbital cellulitis on imaging but with clinical worsening of her symptoms will reCAT scan. Wound is draining will attempt to obtain a decent culture, concern for contamination and insignificance Continue to follow labs closely including CBC and inflammatory markers Continue vancomycin and ceftriaxone but will need add Flagyl to broaden coverage ENT consultation discussed with DR Calles Subjective Subjective Interval history since last seen: Patient reporting symptoms have worsened markedly. Increasing redness pain pressure now with drainage coming from initial scab site. Also with redness and swelling noted now on the contralateral periorbital side. Exam Narrative Exam Narrative: This is a white female of stated age appearing uncomfortable sitting in her bed both eyes with periorbital redness and swelling. Redness and swelling to the right temporal area extending posteriorly. EOMs are intact sclera nonicteric noninjected. Oral mucosas moist neck with full range of motion cardiovascular regular rate and rhythm respirations even and unlabored neurologic she is awake alert oriented no focal deficits psychiatric appropriate mood and affect Objective Last Vital Signs Temp 36.6 C 07/31/24 10:43 Pulse 96 H 07/31/24 10:43 Resp 16 07/31/24 10:43 BP 125/73 07/31/24 10:43 Pulse Ox 98 07/31/24 10:43 Laboratory Results - last 24 hr 07/30/24 07/31/24 15:54 05:08 WBC 11.62 H 9.43 RBC 4.52 4.42 Hgb 12.9 12.7 Hct 38.6 37.9 MCV 85 86 MCH 28.5 28.7 MCHC 33.4 33.5 RDW 12.6 12.5 Plt Count 316 291 MPV 10.2 10.4 Immature Gran % 0.4 Neutrophils % 90.4 Lymphocytes % 7.0 Monocytes % 1.9 Eosinophils % 0.0 Basophils % 0.3 Nucleated RBC % 0.0 Absolute Neutrophils 10.50 H Absolute Lymphocytes 0.81 L Absolute Monocytes 0.22 Absolute Eosinophils 0.00 Absolute Basophils 0.03 ESR 27 H Sodium 137 143 Potassium 4.3 3.8 Chloride 103 105 Carbon Dioxide 28.5 29.9 Anion Gap 5.5 8.1 BUN 9 10 Creatinine 0.7 0.6 Est GFR (CKD-EPI 2020) 119.24 123.76 Glucose 128 H 107 H Calcium 8.8 8.7 Magnesium 2.1 Total Bilirubin 0.40 AST 38 H ALT 68 H Alkaline Phosphatase 89 C-Reactive Protein 4.99 H Total Protein 7.7 Albumin 3.8 Procalcitonin < 0.10 Serum HCG, Qual Negative Random Vancomycin 4.7 Time Spent with Patient Time Spent with Patient: 35-49 minutes Time was spent: preparing to see the patient(eg.review tests), obtaining and/or reviewing separately otained hiistory, ordering medications,tests, procedures, referring, communicating with other health client care consultant, indepentently interpreting results and counseling the patient
[2024-07-31] MEDS: cefTRIAXone 2 GM/50 ML BAG IVPB (12:15)
[2024-07-31] MEDS: metroNIDAZOLE 500 MG/100 ML BAG 100 MG IVPB (12:50)
[2024-07-31] MEDS: VANCOMYCIN/WATER (PEG) 1.25 GM/250 ML BAG IVPB ×2 (14:30→23:08)
--- NOTE | 2024-07-31 15:03 | PHA.REVIEW2 ---
Pharmacy Admission Review Admission Clinical Review Admission Pharmacy Review: Preseptal cellulitis (Acute) Periorbital cellulitis (Acute) ciprofloxacin HCl (From Cipro) Allergy (Intermediate, Verified 07/30/24 15:22) Hives sulfamoxole Allergy (Intermediate, Verified 07/30/24 15:22) Hives Resuscitation Status Full Code Height 5 ft 8 in Weight 86.183 kg Comments Comments/Follow Ups: Watch VS, labs, for culture results and for med changes. Pharmacy Admission Review Renal Dosing Renal Dosing: BUN 10 mg/dL (7-18) 07/31/24 05:08 Creatinine 0.6 mg/dL (0.55-1.02) 07/31/24 05:08 Medications needing adjustments: Reviewed (Crcl ~157.6 mL/min current meds okay) Anticoagulation Anticoagulation: Hgb 12.7 g/dL (11.2-15.7) 07/31/24 05:08 Hct 37.9 % (36.0-46.0) 07/31/24 05:08 Plt Count 291 10^3/uL (130-400) 07/31/24 05:08 Creatinine 0.6 mg/dL (0.55-1.02) 07/31/24 05:08 DVT Prophylaxis: Reviewed Medications: Enoxaparin Opiate Usage Evaluate Pain Scale/Pains Meds: Intervened Scheduled Bowel Reg ordered if on Opiates?: No (will mention to provider) Relevant Labs Relevant Labs: ESR 27 mm/hr (0-20) H 07/30/24 15:54 Sodium 143 mmol/L (136-145) 07/31/24 05:08 Potassium 3.8 mmol/L (3.5-5.1) 07/31/24 05:08 Chloride 105 mmol/L (98-107) 07/31/24 05:08 Magnesium 2.1 mg/dL (1.8-2.4) 07/30/24 15:54 C-Reactive Protein 4.99 mg/dL (<or=0.5) H 07/30/24 15:54 Electrolytes, C-Reactive P, ESR: Reviewed DM Control DM Control: Glucose 107 mg/dL (74-106) H 07/31/24 05:08 DM Control: Reviewed (No DM in pt's medical history, no A1c on file) Cardiac Review BP, HR, EF%: Reviewed (BP has been within normal limits, HR has been normal to high so far this admission.) QTc Review QTc: N/A IV to PO Switch IV Medications: Reviewed Home Meds Home Med List reviewed: Reviewed Relevent Home Meds Not ordered & why?: augmentin and clindamycin (has other antibiotics ordered), prednisone Current Meds Current Medication Order Review: Intervened (changed vanco from admix to premix, adjusted enoxaparin timing per medical billing representative time policy, changed morphine dosage form so less waste) Pharmacy Antibiotic Review Relevant Labs: Relevant Labs 07/30/24 15:54 C-Reactive Protein 4.99 H Procalcitonin < 0.10 Pharmacy Antibiotic Activity: Abx regimen adjustment and C/S review Comments: Blood and wound cultures are pending. Vanco dosing adjusted to 1250 mg Q8H to target a trough of ~15 for cellulitis. Metronidazole added by the provider Comments Comments/Follow Ups: Watch VS, labs, for culture results and for med changes.
[2024-07-31] MEDS: Gadoterate meglumine 20 ML VIAL 18 ML IVP (15:21)
[2024-07-31] MEDS: MORPHine 4 MG/ML SYR IVP ×2 (16:22→21:07)
[2024-07-31 16:44] VITALS: BP 121/97; PULSE 97; RESP 20; TEMP 37.1; O2SAT 100
--- NOTE | 2024-07-31 16:57 | DI.VRAD_ITS ---
PROCEDURE INFORMATION: Exam: MR Face Without and With Contrast Exam date and time: 07/31/2024 3:14 PM Age: 29 years old Clinical indication: Orbital cellulitis, sign worsening on iv therapy TECHNIQUE: Imaging protocol: Magnetic resonance imaging of the face including orbits without and with contrast. Contrast material: DOTAREM; Contrast volume: 18 ml; Contrast route: INTRAVENOUS (IV); COMPARISON: CT FACIAL W 07/30/2024 4:36 PM FINDINGS: Paranasal sinuses: No fluid levels. Orbital cavities: Orbits are normal without evidence of retrobulbar fat. Globes are unremarkable. Nasopharynx: Unremarkable Pharynx: Unremarkable. Larynx: Visualized larynx is unremarkable. Salivary glands: Visualized submandibular and parotid glands are unremarkable. Lymph nodes: No lymphadenopathy. Soft tissues: There is subcutaneous edema in the right periorbital and temporal subcutaneous regions consistent with known cellulitis. The area of inflammation is centered in the region of the zygomatic process, with linear regions fluid centered in this region. One region of fluid measures approximately 1.6 x 0.5 cm (image 20, series 02962) and is directly connected with another region measuring approximately 1.4 x 0.4 cm (image 17), which then exits to the skin. Bones/joints: No evidence of osseous edema or replacement of marrow fat. IMPRESSION: 1. Multifocal linear fluid collection in the right zygomatic subcutaneous region, concerning for abscess formation with dimensions as described. Significant surrounding subcutaneous inflammation and edema noted. 2. No evidence of postseptal extension into the retrobulbar fat of the right orbit. 3. No intracranial or osseous extension. Dictated and Authenticated by: Patricia Zelaya MD. Orderin Bassem Wells MD
[2024-07-31] MEDS: Enoxaparin 40 MG/0.4 ML SYR SC (20:57)
[2024-07-31 23:15] VITALS: BP 134/82; PULSE 88; RESP 15; TEMP 37.3; O2SAT 98
[2024-08-01] MEDS: metroNIDAZOLE 500 MG/100 ML BAG 100 MG IVPB ×3 (01:32→21:52)
[2024-08-01 03:22] VITALS: BP 125/90; PULSE 75; RESP 15; TEMP 36.7; O2SAT 97
[2024-08-01] MEDS: MORPHine 4 MG/ML SYR IVP ×4 (05:12→23:42)
[2024-08-01] MEDS: HYDROcodone 5/Acetaminophen 325 TAB PO ×2 (05:13→21:55)
[2024-08-01] MEDS: Normal Saline Flush 10 ML SYR IVP ×5 (05:13→21:53)
[2024-08-01] MEDS: Lactated Ringers 1,000 ML 75 ML IV (05:59)
[2024-08-01 06:03] LABS: Abs Immature Grans 0.02 10^3/uL (0.0-0.06); Absolute Basophil Count 0.05 10^3/uL (0.0-0.2); Absolute Eosinophil Count 0.33 10^3/uL (0.0-0.7); Absolute Monocyte Count 0.67 10^3/uL (0.1-0.8); Absolute Neutrophil Count 3.21 10^3/uL (1.2-6.7); Basophils % 0.7 %; Eosinophils % 4.9 %; HCT 34.2 % (36.0-46.0); HGB 11.5 g/dL (11.2-15.7); Immature Grans % 0.3 %; Lymphocytes % 35.9 %; MCHC 33.6 % (32.0-36.0); MCV 86 fL (80-95); MPV 10.6 fL (8.0-11.0); Neutrophils % 48.2 %; Platelet Count 238 10^3/uL (130-400); RBC 3.96 10^6/uL (3.93-5.22); RDW 12.7 % (11.7-14.6); RDW-SD 39.9 fL; WBC 6.68 10^3/uL (4.4-10.8)
[2024-08-01 06:09] LABS: ESR 15 mm/hr (0-20)
[2024-08-01] MEDS: VANCOMYCIN/WATER (PEG) 1.25 GM/250 ML BAG IVPB ×3 (06:10→23:43)
[2024-08-01 06:22] LABS: ALT 32 U/L (14-59); AST 11 U/L (15-37); Albumin 2.8 g/dL (3.4-5.0); Alkaline Phosphatase 59 U/L (46-116); Anion Gap 2.2 mmol/L (3-11); BUN 7 mg/dL (7-18); Bilirubin, Total 0.14 mg/dL (0.2-1.0); CO2 31.8 mmol/L (21.0-32.0); CREATININE 0.6 mg/dL (0.55-1.02); Calcium 8.4 mg/dL (8.5-10.1); Chloride 109 mmol/L (98-107); Estimated GFR 123.76 (mL/min/1.73m2); Glucose 91 mg/dL (74-106); Potassium 3.8 mmol/L (3.5-5.1); Sodium 143 mmol/L (136-145); Total Protein 6.1 g/dL (6.4-8.2)
[2024-08-01 07:31] VITALS: BP 143/92; PULSE 85; RESP 14; TEMP 37; O2SAT 98
[2024-08-01] MEDS: Docusate Sodium 100 MG CAP PO ×2 (11:19→21:53)
[2024-08-01 11:37] VITALS: BP 131/92; PULSE 82; RESP 16; TEMP 36.9; O2SAT 100
--- NOTE | 2024-08-01 11:50 | PDOC.CMPRO ---
Date of service: 08/01/24 Time of Service: 11:50 Care Management Progress Note Progress Note Text Progress Note Text: Liza was sitting up in bed when CM met with her. She reported that she had a bed at [facility] for yesterday but was hospitalized so was unable to go. She spoke to staff there today who requested that a referral be sent from [facility] with daily Progress Notes. CM sent the referral, including Progress Notes to date. Liza informed CM that she had more drainage from her face this morning and a culture was sent. She shared that she had squeezed the area herself to express pus and has a new area which she feels is abscessed. A surgical consult has been requested. Discharge Potential Discharge Needs: PCP F/U Appt Anticipated Barriers to Discharge: Medical Status Patient/Family Education Needs: Review discharge instructions, discuss Ask Me Three Transportation: Private vehicle Plan: Liza reported that she wants to enter [facility] treatment at [facility] when she is discharged. She was supposed to be admitted there yesterday but her hospitalization prevented that from happening. JOSE spoke with the staff at [facility] today and sent a referral. Liza will follow up with her community providers and plan of care and transport with family. CM will follow and continue to support discharge planning efforts. Social Determinants of Health Screening Will the Patient Participate in the Screening?: Declined to provide
[2024-08-01] MEDS: cefTRIAXone 2 GM/50 ML BAG IVPB (11:51)
--- NOTE | 2024-08-01 14:41 | W.PM.PROGNOT ---
Date of Service Date of service: 08/01/24 Time of Service: 14:41 Assessment and Plan Assessment and plan (1) Preseptal cellulitis: Status: Acute Assessment and plan: significant improvement in edema, with wound draining No evidence of orbital cellulitis on MRI imaging yesterday Wound is draining with cultures growing MRSA Continue to follow labs closely including CBC and inflammatory markers Continue vancomycin, ceftriaxone and Flagyl for now, consider narrowing based on cultures surgical consultation for abscess drainage discussed with DR Calles Subjective Subjective Patient reports: no new complaints, feels better, tolerating liquids well, tolerating a regular diet and afebrile; denies shortness of breath Exam Narrative Exam Narrative: This is a white female of stated age ambulating around the room, both eyes with periorbital redness and swelling, markedly improved since yesterday. Redness and swelling to the right temporal area extending posteriorly. EOMs are intact sclera nonicteric noninjected. Oral mucosas moist neck with full range of motion cardiovascular regular rate and rhythm respirations even and unlabored neurologic she is awake alert oriented no focal deficits psychiatric appropriate mood and affect Objective Last Vital Signs Temp 36.9 C 08/01/24 11:37 Pulse 82 08/01/24 11:37 Resp 16 08/01/24 11:37 BP 131/92 H 08/01/24 11:37 Pulse Ox 100 08/01/24 11:37 Laboratory Results - last 24 hr 08/01/24 08/01/24 05:18 11:57 WBC 6.68 RBC 3.96 Hgb 11.5 Hct 34.2 L MCV 86 MCH 29.0 MCHC 33.6 RDW 12.7 Plt Count 238 MPV 10.6 Immature Gran % 0.3 Neutrophils % 48.2 Lymphocytes % 35.9 Monocytes % 10.0 Eosinophils % 4.9 Basophils % 0.7 Nucleated RBC % 0.0 Absolute Neutrophils 3.21 Absolute Lymphocytes 2.40 Absolute Monocytes 0.67 Absolute Eosinophils 0.33 Absolute Basophils 0.05 ESR 15 Sodium 143 Potassium 3.8 Chloride 109 H Carbon Dioxide 31.8 Anion Gap 2.2 L BUN 7 Creatinine 0.6 Est GFR (CKD-EPI 2020) 123.76 Glucose 91 Calcium 8.4 L Total Bilirubin 0.14 L AST 11 L ALT 32 Alkaline Phosphatase 59 C-Reactive Protein 3.30 H Total Protein 6.1 L Albumin 2.8 L Random Vancomycin 19.0 Time Spent with Patient Time Spent with Patient: 25-34 minutes Time was spent: preparing to see the patient(eg.review tests), obtaining and/or reviewing separately otained hiistory, ordering medications,tests, procedures, indepentently interpreting results and counseling the patient
[2024-08-01 18:31] VITALS: BP 138/90; PULSE 80; RESP 16; TEMP 37.4; O2SAT 100
[2024-08-01] MEDS: Enoxaparin 40 MG/0.4 ML SYR SC (21:52)
[2024-08-01] MEDS: Polyethylene Glycol 3350 17 GM PACKET PO (21:53)
[2024-08-01] MEDS: hydrOXYzine HCL 50 MG TAB PO (21:54)
[2024-08-02] MEDS: VANCOMYCIN/WATER (PEG) 1.25 GM/250 ML BAG IVPB ×2 (06:31→14:17)
[2024-08-02] MEDS: Docusate Sodium 100 MG CAP PO (08:36)
[2024-08-02] MEDS: Normal Saline Flush 10 ML SYR IVP ×6 (08:37→17:39)
[2024-08-02 08:45] VITALS: BP 133/90; PULSE 80
[2024-08-02] MEDS: metroNIDAZOLE 500 MG/100 ML BAG 100 MG IVPB (10:03)
--- NOTE | 2024-08-02 10:04 | W.PM.PROGNOT ---
Date of Service Date of service: 08/02/24 Time of Service: 10:04 Assessment and Plan Assessment and plan (1) Preseptal cellulitis: Status: Acute Assessment and plan: significant improvement in edema, with wound draining No evidence of orbital cellulitis on MRI imaging yesterday Wound is draining with cultures growing MRSA Continue to follow labs closely including CBC and inflammatory markers Transition form vancomycin to zyvox , d/c ceftriaxone and continue Flagyl for now, consider narrowing based on cultures surgical consultation for abscess drainage discussed with DR Calles Objective Last Vital Signs Temp 37.4 C 08/01/24 18:31 Pulse 80 08/02/24 08:45 Resp 16 08/01/24 18:31 BP 133/90 08/02/24 08:45 Pulse Ox 100 08/01/24 18:31 Laboratory Results - last 24 hr 08/01/24 11:57 Random Vancomycin 19.0
[2024-08-02 11:01] LABS: Abs Immature Grans 0.01 10^3/uL (0.0-0.06); Absolute Basophil Count 0.05 10^3/uL (0.0-0.2); Absolute Eosinophil Count 0.23 10^3/uL (0.0-0.7); Absolute Lymphocyte Count 1.51 10^3/uL (1.2-3.4); Absolute Monocyte Count 0.46 10^3/uL (0.1-0.8); Absolute Neutrophil Count 2.16 10^3/uL (1.2-6.7); Basophils % 1.1 %; Eosinophils % 5.2 %; HCT 38.2 % (36.0-46.0); HGB 12.6 g/dL (11.2-15.7); Immature Grans % 0.2 %; Lymphocytes % 34.2 %; MCH 28.6 pg (27.0-33.0); MCV 87 fL (80-95); MPV 9.8 fL (8.0-11.0); Monocytes % 10.4 %; Neutrophils % 48.9 %; Platelet Count 284 10^3/uL (130-400); RBC 4.41 10^6/uL (3.93-5.22); RDW 12.6 % (11.7-14.6); RDW-SD 40.4 fL; WBC 4.42 10^3/uL (4.4-10.8)
[2024-08-02 11:13] LABS: C-Reactive Protein 1.88 mg/dL (<or=0.5)
[2024-08-02] MEDS: LINEZOLID 600 MG/300 ML BAG 300 MG IVPB (11:24)
--- NOTE | 2024-08-02 11:59 | W.PM.DS.N ---
Date of service: 08/02/24 Time of Service: 11:59 DS: Diagnosis Discharge Diagnosis (1) Preseptal cellulitis: Status: Acute Discharge Plan Disposition Patient Disposition: Home Condition: Improving Discharge Details Reason For Visit: Periorbital Cellulitis Admit Date/Time: 07/30/24 18:28 Admit Provider: Cony Cervantes Attending Provider: Cony Cervantes Primary Care Provider: Ashutosh Carrero Hospital Course Hospital Course: This 29 years old female patient with a past medical history significant for ADHD presented to the emergency department for second time in 48 hours with complaint of worsening right eye swelling and erythema, subjective chills and fevers headache/pressure over right eye with some nausea and vomiting. The day prior to presentation the patient was discharged home with Augmentin and clindamycin and prednisone after CT showed soft tissue swelling over the right side of her face and orbit with no gas in the soft tissue, no fracture, and no evidence of orbital involvement. Workup in the ED was significant for CRP of 0.9, negative procalcitonin, leukocytosis at 11,[address] scan of her facial bones showed large edema over the right side of her face with slightly increased from prior imaging the day prior with finding that periorbital cellulitis remained preseptal without evidence subperiosteal abscess. The patient was admitted to the medical surgical floor by the hospitalist based on failure of outpatient antibiotic therapy for evaluation and management of periorbital cellulitis. Blood cultures were negative at 48 hours, and wound cultures grew MRSA for which the patient continued to receive vancomycin. Later transition to linezolid failed as the patient developed a slightly raised rash reaction. MRI completed on 07/31/2024 reported fluid region measuring 16X 5 mm connected to another measuring 1.4 x 0.4 cm consistent with subcutaneous abscess and surrounding inflammatory changes. IV clindamycin was initiated. Surgical consult placed; no recommendation emitted as per discussion with Dr. Fallon. ID at [facility] consulted and recommendation from Dr. Schuler are to treat with clindamycin for 10 days and add doxycycline if MRSA appears to be resistant; MRSA was resistant to Bactrim, ciprofloxacin. No recommendations for metronidazole made. Infectious disease also recommended surgical consultation if the lesion was not draining. Short course of probiotic was added to the therapy. The patient will need to follow-up with his primary care practitioner within 7 days of discharge during which they can discuss the pertinence of pursuing an outpatient surgical referral. Discussed with Dr. Fallon. Home Meds and New Rx's Prescriptions: New doxycycline hyclate 100 mg Capsule 100 mg PO Q12H Qty: 19 0RF Bio-K plus 50 billion cell capsule,delayed release(DR/EC) 1 cap PO DAILY Qty: 10 0RF Rx Instructions: Take 3 hours apart from antibiotics clindamycin HCl 150 mg capsule 450 mg PO TID Qty: 87 0RF Rx Instructions: Take 3 hours apart from probiotics Discontinued amoxicillin-pot clavulanate 875-125 mg tablet 1 tab PO BID Qty: 14 0RF clindamycin HCl 150 mg capsule 450 mg PO TID 7 Days Qty: 63 0RF No Action prednisone 20 mg tablet 60 mg PO DAILY 5 Days Qty: 15 0RF Discharge Instructions Stand Alone Forms: Nursing Discharge Form Referrals: Ashutosh Carrero [Primary Care Provider] - (The office has your information and will be calling with your appointment. ) Activity:: Activity as Tolerated Equipment/Supplies:: No Equipment Needed Diet:: As Tolerated Discharge Orders Discharge Orders: Discharge Order (Routine); Ordered 08/02/24 Ordered By: Heaven Kingston DS: Summary Time Spent with Patient providing and/or coordinating discharge services: Greater than 30 minutes Status at Discharge Functional status at discharge: independent ambulation Overall status at discharge: patient is progressing back to baseline Mental Status: mental status grossly normal Speech and Movement: speech and movement normal Mood: congruent mood Affect: normal affect Quality:SDOH Health Related Social Needs: No Data to Display Exam Narrative Exam Narrative: Appearing of stated age and without acute distress Shad right sided temporal/zygomatic area redness that seems to have been improving, minimal swelling; distal area of swelling and redness is draining small amount of pus, no malodor noticed. EOMs are intact sclera nonicteric noninjected. Alert oriented x 3 nonfocal, S1-S2 regular, clear lungs, abdomen is soft nontender nondistended, moves all 4 extremities Psych Mental Status: mental status grossly normal Speech and Movement: speech and movement normal Mood: congruent mood Affect: normal affect DS: Data Vitals/I&O Vitals and I&O: Vital Signs Temperature 37.4 C 08/01/24 18:31 Temperature Source Temporal Artery Scan 08/01/24 18:31 Pulse 80 08/02/24 08:45 Pulse Rhythm Regular 02/16/25 19:54 Respiratory Rate 16 08/01/24 18:31 Respiratory Effort Normal, Non-Labored 07/30/24 19:54 Respiratory Depth Normal 07/30/24 19:54 Respiratory Pattern Normal 07/30/24 19:54 Blood Pressure 133/90 08/02/24 08:45 Blood Pressure Mean 94 07/30/24 19:42 Blood Pressure Position Sitting 07/30/24 15:22 Pulse Oximetry 100 08/01/24 18:31 Oxygen Delivery Method Room Air 08/02/24 08:45 Oxygen Flow Rate 0 08/02/24 08:45 Pain Level 9 08/01/24 23:42 Comment pT requested to do vitals at a later time. 08/01/24 16:33 Intake & Output 08/01/24 08/01/24 08/02/24 11:59 23:59 11:59 Intake Total 1957.50 / 2957.50 1000 / 2957.50 350 / 350 Output Total 200 / 400 200 / 400 Balance 1757.50 / 2557.50 800 / 2557.50 350 / 350 Intake: IV 1837.50 / 2337.50 500 / 2337.50 350 / 350 Oral 120 / 620 500 / 620 Output: Urine 200 / 400 200 / 400 Stool 0 / 0 Other: Urine Color Yellow Yellow Urine Appearance Clear Clear Urine Odor None None Comment per pt voided x1 Pt urinating independenly, denies issues with urination Data Completed and Pending Labs on day of discharge: Labs from last 24 hours 08/02/24 08/01/24 10:50 11:57 WBC 4.42 RBC 4.41 Hgb 12.6 Hct 38.2 MCV 87 MCH 28.6 MCHC 33.0 RDW 12.6 Plt Count 284 MPV 9.8 Immature Gran % 0.2 Neutrophils % 48.9 Lymphocytes % 34.2 Monocytes % 10.4 Eosinophils % 5.2 Basophils % 1.1 Nucleated RBC % 0.0 Absolute Neutrophils 2.16 Absolute Lymphocytes 1.51 Absolute Monocytes 0.46 Absolute Eosinophils 0.23 Absolute Basophils 0.05 C-Reactive Protein 1.88 H Random Vancomycin 19.0 Preliminary micro results at discharge 07/31/24 12:03 Wound Culture - Preliminary Face - Left Staph aureus, MRSA Normal Genevieve 07/30/24 18:00 Blood Culture - Preliminary Blood NO GROWTH 48 HOURS 07/30/24 18:00 Blood Culture - Preliminary Blood NO GROWTH 48 HOURS PFSH All Active Problems Preseptal cellulitis (Acute) Periorbital cellulitis (Acute) Pelvic pain (Acute) Menorrhagia (Acute) Tendinopathy of left biceps tendon (Acute) Screen for STD (sexually transmitted disease) (Acute) Impingement syndrome, shoulder, left (Acute) Internal and external thrombosed hemorrhoids (Acute) Status post tubal ligation (Acute) Adjustment disorder with mixed anxiety and depressed mood (Acute) HGSIL (high grade squamous intraepithelial lesion) on Pap smear of cervix (Acute) Repeat PAP PP Marijuana smoker (Acute) Tobacco dependence (Chronic) Medical History SLAP lesion of left shoulder Biceps tendinitis of left shoulder Contraception Cholelithiasis (03/30/14) Surgical History Lilly teeth extracted Bartholin gland cyst H/O pilonidal cyst History of tonsillectomy w/ adnoidectomy Cholecystectomy (03/30/14) Family History Mother Personal history of gallstones cholecystectomy in her 20's Family history of gallstones several women required surgery at fairly young age Abnormal Pap smear of cervix Sister Abnormal Pap smear of cervix Other Cancer Diabetes Heart disease Social History Smoking/Tobacco Use Status: Current every day Tobacco Type: cigarettes and e-cigarettes Smoking risk assessment performed?: Yes Alcohol Intake: former Drug use: Occasionally Substance use type: marijuana Household members: children and other Details: daughter is named [place] Housing: house Number of Children: 1 Current gender identity: female Do you feel safe at home: Yes Do you feel safe in your relationship?: Yes Female Reproductive History Menstrual control method: none History History 2 Para 2 Hx # Term Pregnancies 2 Multiple births 0 Hx # Pregnancies 0 Ectopic pregnancies 0 AB induced 0 Hx Number of Living Children 2 AB spontaneous 0 Past Pregnancies Del. Date GA/Weeks # Preg Succ Route Wgt Sex Labor Lgth Anesthesia Location Prov Complic 03/09/14 40 No vaginal 3288.545 g Female 4.[address] ariel harrison 02/17/19 37 No vaginal 3061.748 g Male Sophy Hussein CNM Delivery Date: 03/09/14 Last Updated by: Sophy Hussein CNM 3 stiches pp. Time Spent with Patient Time Spent with Patient: 70-84 minutes4 Time was spent: preparing to see the patient(eg.review tests), obtaining and/or reviewing separately otained hiistory, ordering medications,tests, procedures, referring, communicating with other health child care teacher, indepentently interpreting results, counseling the patient and care coordination
--- NOTE | 2024-08-02 12:49 | TELEFU_ITS ---
Date of service: 08/02/24 Time of Service: 12:49 Nutrition Note NOTE: Pt has been admitted for 3 days, being treated for cellulitis in the periorbiatl region. Maureen hx shows upward trend with current BMI at 28.9. Ordered for regular diet with normal consistencies and fair to good intake ( improving over the length of her stay) Pt with no stated nutritional concerns. Anticipate dishcharge today. Will follow/monitor for any changes in nutritional status. Time Spent in Nutritional Counseling and Treatment: 0
[2024-08-02] MEDS: Lactobacillus Acidophilus CAP 1 CAP PO (14:19)
--- NOTE | 2024-08-02 14:49 | PDOC.CMPRO ---
Date of service: 08/02/24 Time of Service: 14:49 Care Management Progress Note Progress Note Text Progress Note Text: Liza was sitting up on her bed, visiting with her Mom, when CM met with her today. She had been changed to oral antibiotics, and had an allergic reaction to the oral dose. This is delaying her discharge. Clinical notes were faxed to [facility] today, and will continue to be sent daily until discharge. Liza is disappointed with the delay in discharge. Discharge Potential Discharge Needs: PCP F/U Appt (admission to [facility]) Anticipated Barriers to Discharge: None Identified Patient/Family Education Needs: Review discharge instructions, discuss Ask Me Three Transportation: Private vehicle Plan: Liza is planning to enter [facility] treatment at [facility] once discharged. Referral and clinicals have already been sent, and daily progress notes will continue to be sent by CM. Liza will follow up with her community providers and plan of care and transport with family. CM will follow and continue to support discharge planning efforts. Social Determinants of Health Screening Will the Patient Participate in the Screening?: Declined to provide
[2024-08-02] MEDS: CLINDAMYCIN 900 MG/50 ML BAG 50 MG IVPB (16:37)
[2024-08-02] MEDS: Doxycycline Hyclate 100 MG CAP PO (16:38)
--- NOTE | 2024-08-02 16:59 | CMDISCH_ITS ---
Date of service: 08/02/24 Time of Service: 16:59 LACE Index Scoring Tool Questions: Length of Stay (in days): 3 Was the patient admitted via the E.D.?: Yes E.D. Visits: 2 Answers: Total Score: 8 Risk of Readmission: Low Risk Care Management Discharge Plan Reason for Hospitalization: mina orbital cellulitis Discharge Plan: Liza was discharged home this afternoon with new orders for oral antibiotics. She will f/u with her PCP and continue per her plan of care. CM faxed her d/c summary to [facility]. Due to her late discharge, she plans to call [facility] tomorrow. She will transport home tonight in a private vehicle. Patient/Family Education Needs: Review of discharge instructions, activity, limitations and discuss ask me 3. SDOH Health Related Social Needs: No Data to Display
--- NOTE | 2024-08-07 10:05 | CMACTNOTE_ITS ---
Date of service: 08/07/24 Time of Service: 10:05 Care Management Activity Note Activity Note Text Activity Note Text: Had a call from Liza's mom requesting notes be sent to [facility]. This CM had faxed H&P, progress and discharge notes, along with med list last week, but they had apparently not been received. CM [facility] and spoke with Ketty Fischer. These documents were faxed again.
== END 2024-08-02 18:06 | disposition home or self-care (01) | DRG 603 ==
LOC: ER 17:43 → MS 19:49
PROVIDERS: Nurse Practitioner Acute Care; Admitting Provider Student in an Organized Health Care Education/Training Program; Emergency Provider Emergency Medicine; PCP Physician Assistant; Responsible Provider Nurse Practitioner Acute Care; Visit Provider Student in an Organized Health Care Education/Training Program
DX: L03.213 Periorbital cellulitis (principal); Z16.29 Resistance to other single specified antibiotic; Z16.23 Resistance to quinolones and fluoroquinolones; D72.829 Elevated white blood cell count, unspecified; F12.90 Cannabis use, unspecified, uncomplicated; F17.210 Nicotine dependence, cigarettes, uncomplicated; F43.23 Adjustment disorder with mixed anxiety and depressed mood; R74.01 Elevation of levels of liver transaminase levels; F90.9 Attention-deficit hyperactivity disorder, unspecified type; B95.62 Methicillin resistant Staphylococcus aureus infection as the cause of diseases classified elsewhere; L27.0 Generalized skin eruption due to drugs and medicaments taken internally; T36.8X5A Adverse effect of other systemic antibiotics, initial encounter
CPT/HCPCS: 00123; 36415; 80048; 80053; 84145; 85027; 85652; 87040; 87077; 96365; 96368; 96375; 96376; 99285; J1650; 70487; 70543; 80202; 83735; 84703; 85025; 86140; 87070; 87186; 87205; 99223; 99232; 99233; 99239; J0696; J0737; J1836; J1885; J2020; J2270; J2405; J3370; J3372; J3490

== ENCOUNTER 2024-09-30 09:15 | Emergency (ER) | payer MEDICAID, SELFPAY ==
[2024-09-30] VITALS (12 sets, daily range): BP systolic 116–139; BP diastolic 67–95; PULSE 68–101; RESP 11–20; TEMP 36.9; O2SAT 99–100
--- NOTE | 2024-09-30 09:26 | DI.CT_ITS ---
Exam(s) CT THORACIC LUMBAR SPINE REC EXAM: CT THORACIC LUMBAR SPINE REC CLINICAL HISTORY: TRAUMA RECONS TECHNIQUE: COMPARISON: CT CT CHEST/ABD/PEL W from 09/30/2024 FINDINGS: THORACIC SPINAL COLUMN: No evidence of acute fracture or listhesis. Some chronic degenerative disc disease noted in lower th oracic spine. No facet joint malalignment. No incidental osseous lesions. There is no significant scoliosis in the thoracic spine. LUMBOSACRAL SPINAL COLUMN: No evidence of fracture, listhesis, nor pars defects. No disc space narrowing. No facet joint patho logy nor malalignment. Sacrum appears intact. SI joints unremarkable. Bone density normal. IMPRESSION: No significant osseous findings in the thoracic and lumbosacral spinal columns.
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
[2024-09-30 09:37] LABS: Abs Immature Grans 0.06 10^3/uL (0.0-0.06); Absolute Basophil Count 0.05 10^3/uL (0.0-0.2); Absolute Eosinophil Count 0.04 10^3/uL (0.0-0.7); Absolute Monocyte Count 0.88 10^3/uL (0.1-0.8); Basophils % 0.4 %; Eosinophils % 0.3 %; HGB 13.1 g/dL (11.2-15.7); Immature Grans % 0.4 %; Lymphocytes % 14.7 %; MCH 29.2 pg (27.0-33.0); MCHC 33.6 % (32.0-36.0); MCV 87 fL (80-95); MPV 9.8 fL (8.0-11.0); Monocytes % 6.5 %; Neutrophils % 77.7 %; Platelet Count 272 10^3/uL (130-400); RBC 4.48 10^6/uL (3.93-5.22); RDW 12.3 % (11.7-14.6); RDW-SD 39.3 fL; WBC 13.56 10^3/uL (4.4-10.8)
[2024-09-30 09:39] LABS: Absolute Lymphocyte Count 1.99 10^3/uL (1.2-3.4); Absolute Neutrophil Count 10.54 10^3/uL (1.2-6.7)
[2024-09-30] MEDS: Normal Saline - Diluent 50 ML VIAL IJ (09:52)
[2024-09-30 10:00] LABS: Prothrombin Time 10.3 sec (9.1-11.1)
[2024-09-30 10:06] LABS: ALT 18 U/L (14-59); AST 14 U/L (15-37); Albumin 4.1 g/dL (3.4-5.0); Alkaline Phosphatase 54 U/L (46-116); BUN 7 mg/dL (7-18); Bilirubin, Total 0.5 mg/dL (0.2-1.0); CREATININE 0.7 mg/dL (0.55-1.02); Calcium 9.2 mg/dL (8.5-10.1); Chloride 103 mmol/L (98-107); Estimated GFR 119.24 (mL/min/1.73m2); Glucose 124 mg/dL (74-106); Lipase 17 U/L (<78); Potassium 3.6 mmol/L (3.5-5.1); Sodium 140 mmol/L (136-145); Total Protein 7.2 g/dL (6.4-8.2)
[2024-09-30 10:13] LABS: ETHANOL BLOOD < 3.0 mg/dL (<10)
[2024-09-30 10:14] LABS: HCG Qual (Serum) Negative
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
[2024-09-30] MEDS: Omnipaque 350 MG/ML 100 ML BTL IJ (10:51)
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
[2024-09-30] MEDS: fentaNYL 100 MCG/2 ML VIAL IVP ×2 (10:53→12:18)
[2024-09-30] MEDS: Ondansetron 4 MG/2 ML VIAL IVP (10:53)
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
[2024-09-30] MEDS: levETIRAcetam 1,000 MG in Normal Saline 100 ML 400 MG IVPB (11:00)
[2024-09-30] MEDS: Diph,Pertuss(Acell),Tet Vac/Pf 0.5 ML SYR IM (11:01)
[2024-09-30] MEDS: ceFAZolin 1 GM/50 ML BAG IVPB (11:01)
[2024-09-30 12:08] LABS: Creatine Kinase 112 U/L (26-192)
== END 2024-09-30 12:25 | disposition short-term general hospital (02) ==
PROVIDERS: Emergency Provider Emergency Medicine; PCP Physician Assistant
DX: S60.222A Contusion of left hand, initial encounter (principal); S06.360A Traumatic hemorrhage of cerebrum, unspecified, without loss of consciousness, initial encounter; S01.01XA Laceration without foreign body of scalp, initial encounter; M25.462 Effusion, left knee; M79.89 Other specified soft tissue disorders; V86.65XA Passenger of 3- or 4- wheeled all-terrain vehicle (ATV) injured in nontraffic accident, initial encounter; Z23 Encounter for immunization
CPT/HCPCS: 74177; 80053; 82550; 83690; 86850; 86900; 86901; 90471; 90715; 96365; 96368; 96375; 96376; 99291; 70450; 70486; 71260; 72125; 73130; 73560; 73590; 73630; 80320; 83735; 84703; 85025; 85610; J0690; J1953; J2405; J3010; J3490

== ENCOUNTER 2024-10-11 17:33 | Emergency (ER) | payer MEDICAID, SELFPAY ==
[2024-10-11 17:45] VITALS: BP 127/85; PULSE 100; RESP 20; TEMP 36.9; O2SAT 98
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
[2024-10-11 19:28] VITALS: BP 117/74; PULSE 87; RESP 14; O2SAT 100
[2024-10-11] MEDS: Amoxicillin 875/Clav. 125 TAB PO (19:51)
== END 2024-10-11 19:56 | disposition home or self-care (01) ==
PROVIDERS: Emergency Provider Emergency Medicine; PCP Physician Assistant
DX: R22.42 Localized swelling, mass and lump, left lower limb (principal); F17.210 Nicotine dependence, cigarettes, uncomplicated; F17.290 Nicotine dependence, other tobacco product, uncomplicated
CPT/HCPCS: 99283; 73630

== ENCOUNTER 2024-10-17 00:18 | Outpatient (CLI) | payer MEDICAID, SELFPAY ==
--- NOTE | 2024-10-17 | DI.US_ITS ---
Exam(s) US LOWER EXTREMITY VENOUS LT EXAM: US LOWER EXTREMITY VENOUS LT CLINICAL HISTORY: LT LEG SWELLING TECHNIQUE: Grayscale, color, and doppler imaging of the deep venous system of the left lower extremi ty was performed. COMPARISON: US US LOWER EXTREMITY VENOUS RT from 11/20/2022 FINDINGS: There is no evidence of intraluminal thrombus and there is normal compression and augmentation demons trated within the common femoral vein, femoral vein, and popliteal vein. In the ipsilateral calf the interrogated veins also exhibit normal compression/ augmentation properti es. The ipsilateral saphenofemoral junction is patent. Small benign-appearing lymph nodes are noted in the left groin. IMPRESSION: 1. No evidence of DVT in the left lower extremity. DATA REPOSITORY:
== END 2024-10-17 00:38 ==
LOC: DI 00:19
PROVIDERS: PCP Physician Assistant; Visit Provider Emergency Medicine
DX: R22.42 Localized swelling, mass and lump, left lower limb (principal)
CPT/HCPCS: 93971

== ENCOUNTER 2024-10-17 11:30 | Emergency (ER) | payer MEDICAID, SELFPAY ==
[2024-10-17 11:37] VITALS: BP 132/91; PULSE 99; RESP 16; TEMP 36.9; O2SAT 99
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
[2024-10-17 12:53] VITALS: BP 135/94; PULSE 95; RESP 16; O2SAT 97
== END 2024-10-17 12:54 | disposition home or self-care (01) ==
PROVIDERS: Emergency Provider Physician Assistant; PCP Physician Assistant
DX: R22.42 Localized swelling, mass and lump, left lower limb (principal)
CPT/HCPCS: 99283; 99282

== ENCOUNTER 2024-10-26 15:08 | Outpatient (REF) | payer MEDICAID, SELFPAY ==
[2024-10-30 12:16] LABS: Chlamydia Result Negative (Negative); GC Result Negative (Negative)
== END 2024-10-26 15:09 | disposition home or self-care (01) ==
LOC: LBN 15:08
PROVIDERS: PCP Physician Assistant; Visit Provider Nurse Practitioner Family
DX: Z11.3 Encounter for screening for infections with a predominantly sexual mode of transmission (principal); R30.0 Dysuria
CPT/HCPCS: 87491; 87591; 87480; 87510; 87660

== ENCOUNTER 2025-04-19 13:46 | Outpatient (REF) | payer MEDICAID, SELFPAY ==
[2025-04-22 11:53] LABS: Bacterial Vaginosis (BV) Negative (Negative); Candida glabrata Negative (Negative); Candida species group Negative (Negative); Chlamydia Result Negative (Negative); GC Result Negative (Negative)
== END 2025-04-19 13:47 | disposition home or self-care (01) ==
LOC: LBN 13:46
PROVIDERS: PCP Physician Assistant; Visit Provider Physician Assistant
DX: N39.0 Urinary tract infection, site not specified (principal)
CPT/HCPCS: 81513; 87077; 87481; 87491; 87591; 87661; 87086; 87186

== ENCOUNTER 2025-05-14 21:56 | Inpatient (IN) | payer MEDICAID, SELFPAY ==
[2025-05-14] VITALS (7 sets, daily range): BP systolic 135; BP diastolic 95; PULSE 99–118; RESP 16; TEMP 36.8; O2SAT 98–100
--- NOTE | 2025-05-14 22:55 | ED.GENADUL_ITS ---
Discharge Plan Disposition Patient Disposition: Admit to [facility] Condition: Serious Discharge Details Clinical Impression: Cellulitis of labia majora Primary Care Provider: Ashutosh Carrero ED Provider: Edie Lozoya Home Meds and New Rx's Prescriptions: No Action No Known Home Meds HPI General Mode of arrival: ambulatory . Date/Time Provider Initiated Documentation: 05/14/25 22:28 . Limitations to Documentation: no limitations . Information obtained by: patient . HPI Narrative: 30yo F presenting with painful swelling in labia. Started yesterday, she attempted to 'pop' it in our own and drained a good amount of fluid from the inside part of her left labia but it has since reaccumulated and gotten bigger. Very painful. Similar symptoms in the past with Bartholin's cyst. No trauma or injury to the area. No fevers, chills, rash, nausea, vomiting, abdominal pain, dsyuria, hematuria, or vaginal discharge. Otherwise in her usual state of health. Related Data Home Medications ?Medication ?Instructions ?Recorded ?Confirmed Unknown [No Known Home Meds] 05/14/25 1 07/15/24 Allergies Allergy/AdvReac Type Severity Reaction Status Date / Time ciprofloxacin HCl (From Allergy Intermediate Hives Verified 05/14/25 22:26 Cipro) sulfamoxole Allergy Intermediate Hives Verified 05/14/25 22:26 General Stated Complaint: Cellulitis NANCY: 4 Review of Systems Narrative: see HPI Exam Narrative Exam Narrative: General: Alert, well appearing, well nourished, appears to be in pain Head: Normocephalic, atraumatic Neck: Trachea midline, ?Neck supple. ENT: ?MMM.? Cardiac: ?HR 90's, regular, no murmurs appreciated Resp: No respiratory distress. CTAB. Abd: ?Soft, non-distended, nontender : ?No suprapubic tenderness. Left labial lesion @ 5 o'clock labia majora, ~4cm's of induration and tenderness. Extremities: ?No deformities.? No peripheral edema. Neurologic: GCS 15. ? Moves all extremities freely against gravity Course Vital Signs Vital signs: Vital Signs Temperature 36.8 C 05/14/25 22:20 Pulse 118 H 05/14/25 22:20 Respiratory Rate 16 05/14/25 22:20 Blood Pressure 135/95 H 05/14/25 22:20 Pulse Oximetry 100 05/14/25 22:20 Temperature 36.8 C 05/14/25 22:20 Temperature Source Tympanic 05/14/25 22:20 Pulse 118 H 05/14/25 22:20 Respiratory Rate 16 05/14/25 22:20 Blood Pressure 135/95 H 05/14/25 22:20 Blood Pressure Position Sitting 05/14/25 22:20 Pulse Oximetry 100 05/14/25 22:20 Oxygen Delivery Method Room Air 05/14/25 22:20 Oxygen Flow Rate 0 05/14/25 22:20 Pain Level 8 05/14/25 22:20 Medical Decision Making 30yo F presenting with painful swelling in labia. Tachycardiac on arrival (suspect 2/t pain), vital signs otherwise reassuring. Large tender left labial cyst at 5 o'clock on labia majora on exam inconsistent with Bartholin's abscess given location. ~4cm in diameter, diffusely indurated and tender, focal area on inferior aspect most tender/firm. No involvement of labia minora. Will treat pain with toradol, low-dose IV morphine and plan to I&D. Exam and labs not suggestive of necrotizing soft tissue infection. No indication for emergent surgical consult or CT imaging at this time. Pt does have history MRSA cellulitis in the past requiring admission. Labs reviewed as below, CBC with marked leukoctysosis to 20, CMP reassuring with no actionable abnormalities, lactate normal, CRP mildly elevated at 8, procal reassuring, upreg negative, UA not infected. I&D attempted at most indurated area with scant serosanginous drainage with no vivien pustulence. Repeat VS after improved pain control remain tachycardiac in the low 100's. Will give 1L IVFB and start IV clindamcyin. LRINEC score 1, reassuring against necrotizing soft tissue infection. Repeat vital signs improved, HR normalized. Discussed options with patient for proceeding; she states that during her prior admission for cellulitis (facial) she was initially seen in the ED and discharged home on oral antibiotics however symptoms rapidly worsened. Given her history, the severity of her symptoms at this time, currently with cellulitis vs developing abscess vs incompletely drained abscess in higher risk location, she warrants observation stay for IV antibiotics, monitoring, pain control, and repeat bloodwork. If worsening may requiring surgical consult and/or imaging. Discussed with [facility] hospitalist Dr. Gonzalez; pt accepted to medicine service for further workup and management. Lab Data Lab results reviewed: Yes I reviewed the patient's lab results. Labs: 05/14/25 23:47 Blood Blood Culture - Pending 05/14/25 23:55 Blood Blood Culture - Pending Laboratory Tests Range/Units 05/14/25 05/14/25 05/14/25 23:05 23:42 23:55 WBC (4.4-10.8) 10^3/uL 20.26 H RBC (3.93-5.22) 10^6/uL 4.20 Hgb (11.2-15.7) g/dL 12.1 Hct (36.0-46.0) % 36.2 MCV (80-95) fL 86 MCH (27.0-33.0) pg 28.8 MCHC (32.0-36.0) % 33.4 RDW (11.7-14.6) % 12.4 Plt Count (130-400) 10^3/uL 293 MPV (8.0-11.0) fL 9.6 Immature Gran % % 0.6 Neutrophils % % 82.7 Lymphocytes % % 8.1 Monocytes % % 7.2 Eosinophils % % 1.1 Basophils % % 0.3 Nucleated RBC % (0.0-0.3) % 0.0 Absolute Neutrophils (1.2-6.7) 10^3/uL 16.76 H Absolute Lymphocytes (1.2-3.4) 10^3/uL 1.64 Absolute Monocytes (0.1-0.8) 10^3/uL 1.46 H Absolute Eosinophils (0.0-0.7) 10^3/uL 0.22 Absolute Basophils (0.0-0.2) 10^3/uL 0.06 VBG Lactate (<or=2.0) mmol/L 0.9 Sodium (136-145) mmol/L 139 Potassium (3.5-5.1) mmol/L 3.8 Chloride (98-107) mmol/L 105 Carbon Dioxide (20.0-31.0) mmol/L 29.3 Anion Gap (3-11) mmol/L 4.7 BUN (9-23) mg/dL 8 L Creatinine (0.55-1.02) mg/dL 0.56 Est GFR (CKD-EPI 2020) (mL/min/1.73m2) 126.14 Glucose (74-106) mg/dL 116 H Calcium (8.3-10.6) mg/dL 8.4 Total Bilirubin (0.2-1.2) mg/dL 0.20 AST (<34) U/L 11 ALT (10-49) U/L 10 Alkaline Phosphatase (46-116) U/L 63 C-Reactive Protein (<=0.50) mg/dL 8.43 H Total Protein (5.7-8.2) g/dL 6.8 Albumin (3.2-5.0) g/dL 4.2 Procalcitonin ng/mL < 0.10 Urine Color (Yellow) Urine Clarity (Clear) Urine pH (5-8) Ur Specific [place] (1.005-1.025) Urine Protein (Neg-Trace) mg/dL Urine Ketones (Negative) mg/dL Urine Blood (Negative) Urine Nitrite (Negative) Urine Bilirubin (Negative) Urine Urobilinogen (Up to 0.2) mg/dL Ur Leukocyte Esterase (Negative) Urine RBC (0-2) HPF Urine WBC (0-5) HPF Ur Epithelial Cells (Negative) HPF Urine Crystals (Negative) HPF Urine Bacteria (Negative) HPF Urine Casts (Negative) LPF Urine Mucus (Negative) Ur Culture Indicated? Urine Glucose (Negative) mg/dL Range/Units 05/15/25 01:30 WBC (4.4-10.8) 10^3/uL RBC (3.93-5.22) 10^6/uL Hgb (11.2-15.7) g/dL Hct (36.0-46.0) % MCV (80-95) fL MCH (27.0-33.0) pg MCHC (32.0-36.0) % RDW (11.7-14.6) % Plt Count (130-400) 10^3/uL MPV (8.0-11.0) fL Immature Gran % % Neutrophils % % Lymphocytes % % Monocytes % % Eosinophils % % Basophils % % Nucleated RBC % (0.0-0.3) % Absolute Neutrophils (1.2-6.7) 10^3/uL Absolute Lymphocytes (1.2-3.4) 10^3/uL Absolute Monocytes (0.1-0.8) 10^3/uL Absolute Eosinophils (0.0-0.7) 10^3/uL Absolute Basophils (0.0-0.2) 10^3/uL VBG Lactate (<or=2.0) mmol/L Sodium (136-145) mmol/L Potassium (3.5-5.1) mmol/L Chloride (98-107) mmol/L Carbon Dioxide (20.0-31.0) mmol/L Anion Gap (3-11) mmol/L BUN (9-23) mg/dL Creatinine (0.55-1.02) mg/dL Est GFR (CKD-EPI 2020) (mL/min/1.73m2) Glucose (74-106) mg/dL Calcium (8.3-10.6) mg/dL Total Bilirubin (0.2-1.2) mg/dL AST (<34) U/L ALT (10-49) U/L Alkaline Phosphatase (46-116) U/L C-Reactive Protein (<=0.50) mg/dL Total Protein (5.7-8.2) g/dL Albumin (3.2-5.0) g/dL Procalcitonin ng/mL Urine Color (Yellow) Yellow Urine Clarity (Clear) Turbid Urine pH (5-8) 7.0 Ur Specific [place] (1.005-1.025) 1.015 Urine Protein (Neg-Trace) mg/dL Negative Urine Ketones (Negative) mg/dL Negative Urine Blood (Negative) Large H Urine Nitrite (Negative) Negative Urine Bilirubin (Negative) Negative Urine Urobilinogen (Up to 0.2) mg/dL 0.2 Ur Leukocyte Esterase (Negative) Small H Urine RBC (0-2) HPF 3-5 H Urine WBC (0-5) HPF 3-5 Ur Epithelial Cells (Negative) HPF Few Urine Crystals (Negative) HPF Negative Urine Bacteria (Negative) HPF Moderate Urine Casts (Negative) LPF Negative Urine Mucus (Negative) Negative Ur Culture Indicated? No Urine Glucose (Negative) mg/dL Negative PFSH All Active Problems (Updated 05/15/25 @ 03:57 by Edie Lozoya MD) Cellulitis of labia majora (Acute) MRSA (methicillin resistant Staphylococcus aureus) (Chronic) Cellulitis of labia majora (Acute) Preseptal cellulitis (Acute) Periorbital cellulitis (Acute) Pelvic pain (Acute) Menorrhagia (Acute) Tendinopathy of left biceps tendon (Acute) Screen for STD (sexually transmitted disease) (Acute) Impingement syndrome, shoulder, left (Acute) Internal and external thrombosed hemorrhoids (Acute) Status post tubal ligation (Acute) Adjustment disorder with mixed anxiety and depressed mood (Acute) HGSIL (high grade squamous intraepithelial lesion) on Pap smear of cervix (Acute) Repeat PAP PP Marijuana smoker (Acute) Tobacco dependence (Chronic) Medical History SLAP lesion of left shoulder Biceps tendinitis of left shoulder Contraception Cholelithiasis (03/30/14) Surgical History [place] teeth extracted Bartholin gland cyst H/O pilonidal cyst History of tonsillectomy w/ adnoidectomy Cholecystectomy (03/30/14) Family History Mother Personal history of gallstones cholecystectomy in her 20's Family history of gallstones several women required surgery at fairly young age Abnormal Pap smear of cervix Sister Abnormal Pap smear of cervix Other Cancer Diabetes Heart disease Social History Smoking/Tobacco Use Status: Current every day Tobacco Type: cigarettes and e- cigarettes Smoking risk assessment performed?: Yes Alcohol Intake: former Drug use: Occasionally Substance use type: marijuana and crack/cocaine Household members: children and other Details: daughter is named [place] Housing: house Number of Children: 1 Current gender identity: female Do you feel safe at home: Yes Do you feel safe in your relationship?: Yes Female Reproductive History Menstrual control method: none History History 2 Para 2 Hx # Term Pregnancies 2 Multiple births 0 Hx # Pregnancies 0 Ectopic pregnancies 0 AB induced 0 Hx Number of Living Children 2 AB spontaneous 0 Past Pregnancies Del. Date GA/Weeks # Preg Succ Route Wgt Sex Labor Lgth Anesth esia Location Prov Complic 03/09/14 40 No vaginal 3288.545 g Female 4.5 hrs d r dege other 02/17/19 37 No vaginal 3061.748 g Male Sophy Hussein CNM Delivery Date: 03/09/14 Last Updated by: Sophy Hussein CNM 3 stiches pp.
[2025-05-14] MEDS: MORPHine 10 MG/ML VIAL 2 MG IVP (22:59)
[2025-05-14] MEDS: Ketorolac 15 MG/ML VIAL IVP (22:59)
[2025-05-14 23:15] LABS: Abs Immature Grans 0.12 10^3/uL (0.0-0.06); HCT 36.2 % (36.0-46.0); HGB 12.1 g/dL (11.2-15.7); Immature Grans % 0.6 %; MCH 28.8 pg (27.0-33.0); MCHC 33.4 % (32.0-36.0); MCV 86 fL (80-95); MPV 9.6 fL (8.0-11.0); Platelet Count 293 10^3/uL (130-400); RBC 4.20 10^6/uL (3.93-5.22); RDW 12.4 % (11.7-14.6); RDW-SD 39.2 fL; WBC 20.26 10^3/uL (4.4-10.8)
[2025-05-14 23:30] LABS: ALT 10 U/L (10-49); AST 11 U/L (<34); Albumin 4.2 g/dL (3.2-5.0); Alkaline Phosphatase 63 U/L (46-116); Anion Gap 4.7 mmol/L (3-11); BUN 8 mg/dL (9-23); Bilirubin, Total 0.20 mg/dL (0.2-1.2); CO2 29.3 mmol/L (20.0-31.0); Calcium 8.4 mg/dL (8.3-10.6); Chloride 105 mmol/L (98-107); Glucose 116 mg/dL (74-106); Potassium 3.8 mmol/L (3.5-5.1); Sodium 139 mmol/L (136-145); Total Protein 6.8 g/dL (5.7-8.2)
[2025-05-14] MEDS: Normal Saline 1,000 ML 1000 ML IV (23:54)
[2025-05-15] VITALS (15 sets, daily range): BP systolic 109–123; BP diastolic 63–85; PULSE 89–111; RESP 16–17; TEMP 36.2–37; O2SAT 95–99
--- NOTE | 2025-05-15 | DI.US_ITS ---
Exam(s) US SOFT TISS BUTTOCK/PERINEUM EXAM: US SOFT TISS BUTTOCK/PERINEUM CLINICAL HISTORY: Suspect abscess. TECHNIQUE: Ultrasound was performed using standard protocol. COMPARISON: No exams were available for comparison FINDINGS: Sonographic assessment utilizing grayscale and color Doppler imaging was performed and targeted to the area of clinical concern. There is mild subcutaneous edema and increased blood flow in the region of the left labia concerning for a cellulitis. There is a small fluid collection seen within the labia. It measures less than 1 cm. It does not appear to be a focal fluid collection and may represent edema. No definite drainable abscess is seen at this time. IMPRESSION: DATA REPOSITORY:
--- NOTE | 2025-05-15 | DI.CT_ITS ---
Exam(s) CT PELVIC W EXAM: CT PELVIC W CLINICAL HISTORY: vulvar cellulitis TECHNIQUE: Imaging Protocol: Axial computed tomography images with coronal and sagittal reformatted images were created and reviewed CONTRAST MATERIAL: Intravenous: Omnipaque 350 Contrast volume:75 mL Oral: No COMPARISON: CT CT CHEST/ABD/PEL W from 11/06/[address] CHEST/ABD/PEL W from 09/30/2024 US US SOFT TISS BUTTOCK/PERINEUM from 05/15/2025 FINDINGS: PELVIS: Abdominal Aorta: Abdominal portion non-dilated. Bowel: No obstruction or bowel wall thickening. Appendix is unremarkable. There is a moderate amount of stool throughout the colon which may represent constipation. Peritoneal Cavity: No ascites, collection or mesenteric inflammatory response. Soft Tissues: There is swelling and edema seen of the left labia. There are fluid collection seen in the vulva bilaterally. There is a 3.8 x 2.2 cm fluid collection in the left vulva and a 2.4 x 1.2 cm fluid collection in the right vulva (series 4, image 79). There is a small fat containing umbilical hernia. Bladder: Symmetric distention, no gross wall thickening. Reproductive Organs: Unremarkable as visualized. Lymph Nodes: There are enlarged inguinal lymph nodes bilaterally which are likely reactive. Bones: Within normal limits. IMPRESSION: 1. Fluid collection seen bilaterally in the vulva, left greater than right. Swelling and edema seen in the left labia. These may represent Bartholin's gland cysts. Abscesses should also be considered. 2. Enlarged and edematous left labia which may represent a cellulitis. 3. Enlarged bilateral inguinal lymph nodes which may be reactive. 4. The preliminary [facility] report was reviewed. RADIATION DOSE DELIVERED: 297.34mGy.cm Total DLP 297.34mGy.cm Total DLP DATA REPOSITORY: All CT scans at this facility are submitted to the National Radiology Data Registry (NRDR) Dose Index Registry (DIR) with the [employer] ([employer]). RADIATION OPTIMIZATION: All CT scans at this facility use at least one of these dose optimization techniques: automated exposure control; mA and/or kV adjustment per patient size (includes targeted exams where dose is matched to clinical indication); or iterative reconstruction.
[2025-05-15] MEDS: ACETAMINOPHEN 1,000 MG/100 ML BAG 400 MG IVPB (00:09)
[2025-05-15] MEDS: CLINDAMYCIN 600 MG/50 ML BAG 100 MG IVPB ×2 (00:15→20:37)
[2025-05-15] MEDS: Lidocaine 2% Multi-Dose 50 ML VIAL IJ (00:29)
[2025-05-15 02:11] LABS: Glucose Negative (Negative)
[2025-05-15 02:33] LABS: C & S Indicated? No
[2025-05-15 02:55] LABS: C-Reactive Protein 8.43 mg/dL (<=0.50)
[2025-05-15 03:11] LABS: Procalcitonin < 0.10 ng/mL
--- NOTE | 2025-05-15 03:32 | W.PM.HP.N ---
Date of service: 05/15/25 Time of Service: 03:33 Assessment and Plan Assessment and plan (1) Cellulitis of labia majora: Start date: 05/15/25 Status: Acute Assessment and plan: This is a 30-year-old lady who has a history of MRSA infection of her face and also recurrent boils in the past but no overt diagnosis hidradenitis suppurativa. Family history is also positive for similar boils. She presents with an abscess and cellulitis of her left labia majora without extension according to the ED physician. There is not appear to be any perirectal abscess though the patient does have a history of pilonidal cyst. She attempted to drain this at home and in the ED there was minimal drainage with I&D attempt. Hopefully cultures were obtained. Patient was given IV clindamycin in the ED but this will be switched to vancomycin awaiting cultures and response. The patient is a full code. (2) MRSA (methicillin resistant Staphylococcus aureus): Status: Chronic Assessment and plan: I&D cultures and blood cultures were done. Continue vancomycin and follow-up for pathogen with adjustment of medical therapy accordingly. History of Present Illness History of Present Illness Chief Complaint: Swelling and redness over left genitalia for 1 day. Narrative: This is a 30-year-old female patient has had a history of previous abscesses and MRSA presenting to the ED with swelling and pain over her left labia over the last day. She attempted to drain it and had a moderate amount of fluid drained but the area has since gotten larger and more painful. She has had no fever or chills, no defecating discomfort and no urinary discomfort. She has been eating and drinking. She has a history of MRSA infection of her face in the past. She also has a history of previous Bartholin cyst but the ED provider thinks that this is not typical of that type of cyst. No imaging was performed and the patient did have an elevated WBC over 20,000. She was initiated on clindamycin but will be switched to vancomycin hopefully with culture done on the I&D. Patient did have blood cultures. She will be admitted for this IV therapy and SEVERITY OF ILLNESS COORDINATOR surgical consultation if worsening. Patient is a full code. Review of Systems Narrative: 13 point review systems otherwise unrevealing or stable. There is a personal and family history of boils in the genitalia area and axillary areas but no formal diagnosis of hidradenitis suppurativa. PFSH All Active Problems Cellulitis of labia majora (Acute) MRSA (methicillin resistant Staphylococcus aureus) (Chronic) Cellulitis of labia majora (Acute) Preseptal cellulitis (Acute) Periorbital cellulitis (Acute) Pelvic pain (Acute) Menorrhagia (Acute) Tendinopathy of left biceps tendon (Acute) Screen for STD (sexually transmitted disease) (Acute) Impingement syndrome, shoulder, left (Acute) Internal and external thrombosed hemorrhoids (Acute) Status post tubal ligation (Acute) Adjustment disorder with mixed anxiety and depressed mood (Acute) HGSIL (high grade squamous intraepithelial lesion) on Pap smear of cervix (Acute) Repeat PAP PP Marijuana smoker (Acute) Tobacco dependence (Chronic) Medical History SLAP lesion of left shoulder Biceps tendinitis of left shoulder Contraception Cholelithiasis (03/30/14) Surgical History [place] teeth extracted Bartholin gland cyst H/O pilonidal cyst History of tonsillectomy w/ adnoidectomy Cholecystectomy (03/30/14) Family History Mother Personal history of gallstones cholecystectomy in her 20's Family history of gallstones several women required surgery at fairly young age Abnormal Pap smear of cervix Sister Abnormal Pap smear of cervix Other Cancer Diabetes Heart disease Social History Smoking/Tobacco Use Status: Current every day Tobacco Type: cigarettes and e-cigarettes Smoking risk assessment performed?: Yes Alcohol Intake: former Drug use: Occasionally Substance use type: marijuana and crack/cocaine Household members: children and other Details: daughter is named [place] Housing: house Number of Children: 1 Current gender identity: female Do you feel safe at home: Yes Do you feel safe in your relationship?: Yes Female Reproductive History Menstrual control method: none History History 2 Para 2 Hx # Term Pregnancies 2 Multiple births 0 Hx # Pregnancies 0 Ectopic pregnancies 0 AB induced 0 Hx Number of Living Children 2 AB spontaneous 0 Past Pregnancies Del. Date GA/Weeks # Preg Succ Route Wgt Sex Labor Lgth Anesthesia Location Prov Complic 03/09/14 40 No vaginal 3288.545 g Female 4.[address] george other 02/17/19 37 No vaginal 3061.748 g Male Sophy George CNM Delivery Date: 03/09/14 Last Updated by: Sophy George CNM 3 stiches pp. Meds Allergies and Home Medications Allergies Allergy/AdvReac Type Severity Reaction Status Date / Time ciprofloxacin HCl (From Allergy Intermediate Hives Verified 05/14/25 22:26 Cipro) sulfamoxole Allergy Intermediate Hives Verified 05/14/25 22:26 Home Medications ?Medication ?Instructions ?Recorded ?Confirmed ?Type Unknown [No Known Home Meds] 05/14/25 05/14/25 History Exam Narrative Exam Narrative: General: Patient is moderately obese, alert and oriented x 3 and in no acute distress. She is fully clothed with and not in a hospital gown. HEENT: Normocephalic, eyes with pupils equal and react to light symmetrically, extraocular movement intact and sclera anicteric. Oropharynx with moist Koza and good dentition. Neck: Supple without JVD. Back: Normal posture without CVA tenderness. Lungs: Clear to auscultation percussion with no focal rales or rhonchi and no expiratory wheeze. Breast: Exam deferred. Heart: Regular rate and rhythm with no murmurs or gallops appreciated. Abdomen: Normal contour, moderately obese, soft and nontender to palpation no palpable hepatosplenomegaly. Bowel sounds positive all quadrants. Genitalia/rectal: Exam deferred. ED provider did examine the left labia majora and the female nurse practitioner will reexamine this area of her acute presentation. Patient prefers a female provider. Extremities: Without clubbing, cyanosis or pitting edema. Peripheral pulses intact. Skin: Normal color, warm and dry. Neuro: Cranial nerves II through XII grossly intact, no focal motor deficits and no tremor. Psych: Normal affect and mood. No normal thought processes. Remote and recent memory intact. Results Labs 05/15/25 07:18 05/15/25 07:18 Labs: Laboratory Results - last 24 hr 05/14/25 05/14/25 05/14/25 23:05 23:42 23:55 WBC 20.26 H RBC 4.20 Hgb 12.1 Hct 36.2 MCV 86 MCH 28.8 MCHC 33.4 RDW 12.4 Plt Count 293 MPV 9.6 Immature Gran % 0.6 Neutrophils % 82.7 Lymphocytes % 8.1 Monocytes % 7.2 Eosinophils % 1.1 Basophils % 0.3 Nucleated RBC % 0.0 Absolute Neutrophils 16.76 H Absolute Lymphocytes 1.64 Absolute Monocytes 1.46 H Absolute Eosinophils 0.22 Absolute Basophils 0.06 VBG Lactate 0.9 Sodium 139 Potassium 3.8 Chloride 105 Carbon Dioxide 29.3 Anion Gap 4.7 BUN 8 L Creatinine 0.56 Est GFR (CKD-EPI 2020) 126.14 Glucose 116 H Calcium 8.4 Total Bilirubin 0.20 AST 11 ALT 10 Alkaline Phosphatase 63 C-Reactive Protein 8.43 H Total Protein 6.8 Albumin 4.2 Procalcitonin < 0.10 Urine Color Urine Clarity Urine pH Ur Specific [place] Urine Protein Urine Ketones Urine Blood Urine Nitrite Urine Bilirubin Urine Urobilinogen Ur Leukocyte Esterase Urine RBC Urine WBC Ur Epithelial Cells Urine Crystals Urine Bacteria Urine Casts Urine Mucus Ur Culture Indicated? Urine Glucose 05/15/25 01:30 WBC RBC Hgb Hct MCV MCH MCHC RDW Plt Count MPV Immature Gran % Neutrophils % Lymphocytes % Monocytes % Eosinophils % Basophils % Nucleated RBC % Absolute Neutrophils Absolute Lymphocytes Absolute Monocytes Absolute Eosinophils Absolute Basophils VBG Lactate Sodium Potassium Chloride Carbon Dioxide Anion Gap BUN Creatinine Est GFR (CKD-EPI 2020) Glucose Calcium Total Bilirubin AST ALT Alkaline Phosphatase C-Reactive Protein Total Protein Albumin Procalcitonin Urine Color Yellow Urine Clarity Turbid Urine pH 7.0 Ur Specific [place] 1.015 Urine Protein Negative Urine Ketones Negative Urine Blood Large H Urine Nitrite Negative Urine Bilirubin Negative Urine Urobilinogen 0.2 Ur Leukocyte Esterase Small H Urine RBC 3-5 H Urine WBC 3-5 Ur Epithelial Cells Few Urine Crystals Negative Urine Bacteria Moderate Urine Casts Negative Urine Mucus Negative Ur Culture Indicated? No Urine Glucose Negative Last Vital Signs Temp 36.8 C 05/14/25 22:20 Pulse 89 05/15/25 01:24 Resp 16 05/14/25 22:20 BP 121/65 05/15/25 01:24 Pulse Ox 99 05/15/25 01:20 VTE Prohylaxis Risk Level: Low Risk Contraindications: None Prophylaxis: Pharmacologic and Mechanical Time Spent Time spent with Patient: 55-74 minutes Time was spent: preparing to see the patient(eg.review tests), obtaining and/or reviewing separately otained hiistory, ordering medications,tests, procedures, indepentently interpreting results and counseling the patient
[2025-05-15 04:58] LABS: COVID-19 PCR Negative (Negative); RSV PCR Negative (Negative)
[2025-05-15] MEDS: MORPHine 10 MG/ML VIAL 2 MG IVP (06:02)
--- NOTE | 2025-05-15 06:09 | W.ED.PROC ---
Date of service: 05/15/25 Time of Service: 00:00 Procedures Abscess I/D Site: Other (left labia majora) Side (if applicable): Left Sedation/analgesia: Other (morphine) Local Anesthetic: Lidocaine 2% Amount of anesthesia used (mL): 2 Technique: Incised with #11 Blade Amount of fluid expressed (mL): 1 Packing used?: None
[2025-05-15 07:35] LABS: HCT 34.4 % (36.0-46.0); HGB 11.3 g/dL (11.2-15.7); MCH 28.3 pg (27.0-33.0); MCHC 32.8 % (32.0-36.0); MCV 86 fL (80-95); MPV 9.8 fL (8.0-11.0); Platelet Count 264 10^3/uL (130-400); RBC 3.99 10^6/uL (3.93-5.22); RDW 12.3 % (11.7-14.6); RDW-SD 39.1 fL; WBC 18.38 10^3/uL (4.4-10.8)
[2025-05-15 07:52] LABS: Magnesium 1.9 mg/dL (1.6-2.6)
[2025-05-15 07:54] LABS: ALT 42 U/L (10-49); AST 66 U/L (<34); Albumin 3.8 g/dL (3.2-5.0); Alkaline Phosphatase 77 U/L (46-116); Anion Gap 5.8 mmol/L (3-11); BUN 8 mg/dL (9-23); Bilirubin, Total 0.40 mg/dL (0.2-1.2); CO2 27.2 mmol/L (20.0-31.0); Calcium 8.0 mg/dL (8.3-10.6); Chloride 109 mmol/L (98-107); Glucose 101 mg/dL (74-106); Potassium 3.7 mmol/L (3.5-5.1); Sodium 142 mmol/L (136-145); Total Protein 6.3 g/dL (5.7-8.2)
[2025-05-15 09:01] LABS: HCG Qual (Urine) Negative
[2025-05-15] MEDS: VANCOMYCIN 2,000 MG in Normal Saline 500 ML 250 MG IVPB (09:25)
[2025-05-15] MEDS: Enoxaparin 40 MG/0.4 ML SYR SC (09:25)
[2025-05-15] MEDS: Normal Saline Flush 10 ML SYR IVP ×5 (09:26→21:26)
[2025-05-15] MEDS: Acetaminophen 325 MG TAB 650 MG PO ×2 (09:38→20:50)
--- NOTE | 2025-05-15 10:03 | PDOC.CMIN ---
Date of service: 05/15/25 Time of Service: 10:03 Care Management Initial Assmt Initial Assessment Reason for Hospitalization: abscess of labia Functional Status/Living Situation Patient Presentation: Liza had just returned from having an ultrasound when CM met with her. She had visitors, including young children, and was disinclined to talk with CM at that time. She admitted to being in a lot of pain. She informed CM that she will be scheduled for a CT scan tomorrow. Liza was admitted with a vulvar abscess. She has had bartholin cysts in the past, with abscess formation. She tried to drain the abscess at home, and an attempt was made again in the ED, with very little drainage. CM will attempt to meet with Liza again tomorrow. Town of Residence: [place] Resides with: Child Instrumental Activities of Daily Living (ADLs): Independent Medications Medication Management: No Issues/Barriers identified Advance Directives Advance Directives: Do you have an Advance Directive: N 02/15/20, 11:14 AD On File at [facility]: N 02/15/20, 11:14 Date Asked 05/15/25 Today, 05:36 AD Date Reviewed COLST On File at [facility] COLST Date Scanned Code Status Resuscitation Status Full Code Portal Pt does not currently have a portal and education provided: Yes Insurance Coverage/Financial Issues Insurance: Medicaid Care Team Visit Care Team Role Provider Type Apryl Dodd NP MD [facility] STAFF PHYSICIAN Ashutosh Carrero Primary Care Provider [facility] STAFF PHYSICIAN Edie Lozoya MD Emergency Provider [facility] STAFF PHYSICIAN Reji Gonzalez Admit Provider NON-[facility] STAFF PHYSICIAN Attending Provider Discharge Potential Discharge Needs: PCP F/U Appt and Surgical F/U Appt Anticipated Barriers to Discharge: None Identified Patient/Family Education Needs: Review discharge instructions, discuss Ask Me Three Transportation: Private vehicle Plan: Anticipate Liza will be discharged home with no new services when medically cleared. She will follow up with her community providers and plan of care and transport via private vehicle with a friend/family member. CM will follow and continue to support discharge planning. Social Determinants of Health Screening Social Determinants of health last assessed in clinic: 05/15/25 Will the Patient Participate in the Screening?: Yes Do you worry about having a steady place to live?: yes What is your living situation today?: I have housing today, but am worried about losing it Problems where you live: no known problems In the past 12 months, have you had to go without electric, gas, oil or water in your home?: no Has lack of transportation kept you from medical appointments or from doing things needed for daily living?: no Has anyone in your life made you feel unsafe or unsupported?: no How hard is it for you to pay for the very basics like food, housing, medical care, and heating? Would you say it is:: Not hard at all Do you want help finding or keeping work or a job?: I do not need or want help If for any reason you need help with day-to-day activities such as bathing, preparing meals, shopping, managing finances, etc., do you get the help you need?: I don?t need any help How often do you feel lonely or isolated from those around you?: Rarely Do you speak a language other than German at home?: No Does the patient want assistance with any of the above?: No Health Related Social Needs Health related social needs: housing instability, housed, with risk of homelessness (Z59.811) and feeling lonely/isolated (Z60.8) PFSH All Active Problems Cellulitis of labia majora (Acute) MRSA (methicillin resistant Staphylococcus aureus) (Chronic) Cellulitis of labia majora (Acute) Preseptal cellulitis (Acute) Periorbital cellulitis (Acute) Pelvic pain (Acute) Menorrhagia (Acute) Tendinopathy of left biceps tendon (Acute) Screen for STD (sexually transmitted disease) (Acute) Impingement syndrome, shoulder, left (Acute) Internal and external thrombosed hemorrhoids (Acute) Status post tubal ligation (Acute) Adjustment disorder with mixed anxiety and depressed mood (Acute) HGSIL (high grade squamous intraepithelial lesion) on Pap smear of cervix (Acute) Repeat PAP PP Marijuana smoker (Acute) Tobacco dependence (Chronic) Medical History SLAP lesion of left shoulder Biceps tendinitis of left shoulder Contraception Cholelithiasis (03/30/14) Surgical History [place] teeth extracted Bartholin gland cyst H/O pilonidal cyst History of tonsillectomy w/ adnoidectomy Cholecystectomy (03/30/14) Family History Mother Personal history of gallstones cholecystectomy in her 20's Family history of gallstones several women required surgery at fairly young age Abnormal Pap smear of cervix Sister Abnormal Pap smear of cervix Other Cancer Diabetes Heart disease Social History Smoking/Tobacco Use Status: Current every day Tobacco Type: cigarettes and e-cigarettes Smoking risk assessment performed?: Yes Alcohol Intake: former Drug use: Occasionally Substance use type: marijuana and crack/cocaine Household members: children and other Details: daughter is named [place] Housing: house Number of Children: 1 Current gender identity: female Do you feel safe at home: Yes Do you feel safe in your relationship?: Yes Female Reproductive History Menstrual control method: none History History 2 Para 2 Hx # Term Pregnancies 2 Multiple births 0 Hx # Pregnancies 0 Ectopic pregnancies 0 AB induced 0 Hx Number of Living Children 2 AB spontaneous 0 Past Pregnancies Del. Date GA/Weeks # Preg Succ Route Wgt Sex Labor Lgth Anesthesia Location Prov Complic 03/09/14 40 No vaginal 3288.545 g Female 4.[address] ariel harrison 02/17/19 37 No vaginal 3061.748 g Male Sophy Hussein CNM Delivery Date: 03/09/14 Last Updated by: Sophy Hussein CNM 3 stic[address].
[2025-05-15] MEDS: MORPHine 2 MG/ML SYR IVP (12:05)
--- NOTE | 2025-05-15 12:54 | W.GYNCONSULT ---
Date of service: 05/15/25 Time of Service: 12:55 Assessment and Plan Assessment and plan (1) Cellulitis of labia majora: Status: Acute Assessment and plan: Cellulitis of the left labia majora descending into the groin with suspected fluid collection, abscess versus induration in the deeper structures. Will continue IV antibiotics. N.p.o. for now. Soft tissue ultrasound stat. Suspect patient may need surgical exploration and drainage with anesthesia. N.p.o. at this point. History of Present Illness History of Present Illness Chief Complaint: Left vulvar abscess, cellulitis Narrative: Patient is a 30-year-old female with a history of Bartholin duct abscess in the past. She presented to the emergency department last night with vulvar pain and edema. She states she noticed this approximately 2 days ago. She has had no fever but admits to chills. She has significant pain. She states that she had an attempted incision and drainage in the ER, and she has been self expressing purulent fluid. She admits to previous Bartholin duct though she is unsure of which side she had an abscess. Consults Consult date: 05/15/25 Requesting physician: Reji Gonzalez Review of Systems Constitutional Constitutional: Reports as per HPI, Reports chills, Reports fatigue and Reports poor appetite Eyes Eyes: Reports system reviewed and no additional complaints, except as documented ENT Ears, Nose, Mouth, and Throat: Reports system reviewed and no additional complaints, except as documented Cardiovascular Cardiovascular: Reports as per HPI, Denies chest pain and Denies rapid heart rate Respiratory Respiratory: Reports system reviewed and no additional complaints, except as documented Gastrointestinal Gastrointestinal: Reports as per HPI Genitourinary Genitourinary: Reports as per HPI Musculoskeletal Musculoskeletal: Reports system reviewed and no additional complaints, except as documented Integumentary/Breasts Skin/Breast: Reports as per HPI Psychiatric Psychiatric: Reports system reviewed and no additional complaints, except as documented Endocrine Endocrine: Reports fatigue PFSH All Active Problems Cellulitis of labia majora (Acute) MRSA (methicillin resistant Staphylococcus aureus) (Chronic) Cellulitis of labia majora (Acute) Preseptal cellulitis (Acute) Periorbital cellulitis (Acute) Pelvic pain (Acute) Menorrhagia (Acute) Tendinopathy of left biceps tendon (Acute) Screen for STD (sexually transmitted disease) (Acute) Impingement syndrome, shoulder, left (Acute) Internal and external thrombosed hemorrhoids (Acute) Status post tubal ligation (Acute) Adjustment disorder with mixed anxiety and depressed mood (Acute) HGSIL (high grade squamous intraepithelial lesion) on Pap smear of cervix (Acute) Repeat PAP PP Marijuana smoker (Acute) Tobacco dependence (Chronic) Medical History SLAP lesion of left shoulder Biceps tendinitis of left shoulder Contraception Cholelithiasis (03/30/14) Surgical History [place] teeth extracted Bartholin gland cyst H/O pilonidal cyst History of tonsillectomy w/ adnoidectomy Cholecystectomy (03/30/14) Family History Mother Personal history of gallstones cholecystectomy in her 20's Family history of gallstones several women required surgery at fairly young age Abnormal Pap smear of cervix Sister Abnormal Pap smear of cervix Other Cancer Diabetes Heart disease Social History Smoking/Tobacco Use Status: Current every day Tobacco Type: cigarettes and e-cigarettes Smoking risk assessment performed?: Yes Alcohol Intake: former Drug use: Occasionally Substance use type: marijuana and crack/cocaine Household members: children and other Details: daughter is named [place] Housing: house Number of Children: 1 Current gender identity: female Do you feel safe at home: Yes Do you feel safe in your relationship?: Yes Female Reproductive History Menstrual control method: none History History 2 Para 2 Hx # Term Pregnancies 2 Multiple births 0 Hx # Pregnancies 0 Ectopic pregnancies 0 AB induced 0 Hx Number of Living Children 2 AB spontaneous 0 Past Pregnancies Del. Date GA/Weeks # Preg Succ Route Wgt Sex Labor Lgth Anesthesia Location Prov Complic 03/09/14 40 No vaginal 7 lb 4 oz Female 4.[address] ariel harrison 02/17/19 37 No vaginal 6 lb 12 oz Male Sophy George CNM Delivery Date: 03/09/14 Last Updated by: Sophy George CNM 3 stic[address] pp. Exam Const General: cooperative, uncomfortable, not in acute distress and ill appearing Nutritional Appearance: average body habitus [facility] Head: normal to inspection Eyes General: appearance normal, both eyes and all related structures Neck Neck: normal visual inspection and supple Resp Effort & Inspection: normal respiratory effort, no audible wheezes and no cough Auscultation: clear to auscultation bilaterally Cardio Rate: tachycardic Rhythm: regular rhythm GI Inspection: normal to inspection, no edema and non-distended Palpation: soft Other: Cellulitis of the left labia majora into the left gluteal fold. With deep palpation, firmness in the area of the Bartholin duct. Fullness in the same area. Suspect abscess deeper than the cellulitic component. Extrem General: normal to inspection Results Last Vital Signs Temp 98.6 F 05/15/25 12:03 Pulse 104 H 05/15/25 12:03 Resp 17 05/15/25 12:03 BP 112/68 05/15/25 12:03 Pulse Ox 97 05/15/25 12:03 Labs 05/15/25 07:18 05/15/25 07:18 Labs: Laboratory Results - last 24 hr 05/14/25 05/14/25 05/14/25 23:05 23:42 23:55 WBC 20.26 H RBC 4.20 Hgb 12.1 Hct 36.2 MCV 86 MCH 28.8 MCHC 33.4 RDW 12.4 Plt Count 293 MPV 9.6 Immature Gran % 0.6 Neutrophils % 82.7 Lymphocytes % 8.1 Monocytes % 7.2 Eosinophils % 1.1 Basophils % 0.3 Nucleated RBC % 0.0 Absolute Neutrophils 16.76 H Absolute Lymphocytes 1.64 Absolute Monocytes 1.46 H Absolute Eosinophils 0.22 Absolute Basophils 0.06 VBG Lactate 0.9 Sodium 139 Potassium 3.8 Chloride 105 Carbon Dioxide 29.3 Anion Gap 4.7 BUN 8 L Creatinine 0.56 Est GFR (CKD-EPI 2020) 126.14 Glucose 116 H Calcium 8.4 Magnesium Total Bilirubin 0.20 AST 11 ALT 10 Alkaline Phosphatase 63 C-Reactive Protein 8.43 H Total Protein 6.8 Albumin 4.2 Procalcitonin < 0.10 Urine Color Urine Clarity Urine pH Ur Specific [place] Urine Protein Urine Ketones Urine Blood Urine Nitrite Urine Bilirubin Urine Urobilinogen Ur Leukocyte Esterase Urine RBC Urine WBC Ur Epithelial Cells Urine Crystals Urine Bacteria Urine Casts Urine Mucus Ur Culture Indicated? Urine Glucose Urine HCG, Qual COVID-19 Source SARS-CoV-2 (PCR) Influenza Type A (PCR) Influenza Type B (PCR) RSV (PCR) 05/15/25 05/15/25 05/15/25 01:30 04:15 05:32 WBC RBC Hgb Hct MCV MCH MCHC RDW Plt Count MPV Immature Gran % Neutrophils % Lymphocytes % Monocytes % Eosinophils % Basophils % Nucleated RBC % Absolute Neutrophils Absolute Lymphocytes Absolute Monocytes Absolute Eosinophils Absolute Basophils VBG Lactate Sodium Potassium Chloride Carbon Dioxide Anion Gap BUN Creatinine Est GFR (CKD-EPI 2020) Glucose Calcium Magnesium Total Bilirubin AST ALT Alkaline Phosphatase C-Reactive Protein Total Protein Albumin Procalcitonin Urine Color Yellow Cancelled Urine Clarity Turbid Cancelled Urine pH 7.0 Cancelled Ur Specific [place] 1.015 Cancelled Urine Protein Negative Cancelled Urine Ketones Negative Cancelled Urine Blood Large H Cancelled Urine Nitrite Negative Cancelled Urine Bilirubin Negative Cancelled Urine Urobilinogen 0.2 Cancelled Ur Leukocyte Esterase Small H Cancelled Urine RBC 3-5 H Urine WBC 3-5 Ur Epithelial Cells Few Urine Crystals Negative Urine Bacteria Moderate Urine Casts Negative Urine Mucus Negative Ur Culture Indicated? No Urine Glucose Negative Cancelled Urine HCG, Qual COVID-19 Source Nasopharynx SARS-CoV-2 (PCR) Negative Influenza Type A (PCR) Negative Influenza Type B (PCR) Negative RSV (PCR) Negative 05/15/25 05/15/25 07:18 08:15 WBC 18.38 H RBC 3.99 Hgb 11.3 Hct 34.4 L MCV 86 MCH 28.3 MCHC 32.8 RDW 12.3 Plt Count 264 MPV 9.8 Immature Gran % Neutrophils % Lymphocytes % Monocytes % Eosinophils % Basophils % Nucleated RBC % Absolute Neutrophils Absolute Lymphocytes Absolute Monocytes Absolute Eosinophils Absolute Basophils VBG Lactate Sodium 142 Potassium 3.7 Chloride 109 H Carbon Dioxide 27.2 Anion Gap 5.8 BUN 8 L Creatinine 0.57 Est GFR (CKD-EPI 2020) 123.59 Glucose 101 Calcium 8.0 L Magnesium 1.9 Total Bilirubin 0.40 AST 66 H ALT 42 Alkaline Phosphatase 77 C-Reactive Protein Total Protein 6.3 Albumin 3.8 Procalcitonin Urine Color Urine Clarity Urine pH Ur Specific [place] Urine Protein Urine Ketones Urine Blood Urine Nitrite Urine Bilirubin Urine Urobilinogen Ur Leukocyte Esterase Urine RBC Urine WBC Ur Epithelial Cells Urine Crystals Urine Bacteria Urine Casts Urine Mucus Ur Culture Indicated? Urine Glucose Urine HCG, Qual Negative COVID-19 Source SARS-CoV-2 (PCR) Influenza Type A (PCR) Influenza Type B (PCR) RSV (PCR)
[2025-05-15] MEDS: Ketorolac 15 MG/ML VIAL IVP ×2 (14:41→20:50)
[2025-05-15] MEDS: HYDROmorphone 2 MG/ML SYR 0.5 MG IVP (15:26)
--- NOTE | 2025-05-15 18:21 | W.PM.PROGNOT ---
Date of Service Date of service: 05/15/25 Time of Service: 18:21 Assessment and Plan Assessment and plan (1) Cellulitis of labia majora: Status: Acute Assessment and plan: Left labial cellulitis. Recommend no compression to the area. Will broaden antibiotic coverage to add clindamycin. CT scan of the abdomen and pelvis with contrast in the AM. Continue to monitor. Pain control as needed. Repeat laboratory studies in the morning. Appreciate hospitalist input. Subjective Subjective Interval history since last seen: Patient seen and examined this evening. Soft tissue ultrasound reviewed. Mild subcutaneous edema consistent with cellulitis. Less than 1 cm fluid collection within the labia no significant drainable abscess. These findings were discussed with the patient. She states that she has had worsening of her pain and edema. We had a lengthy conversation today regarding appropriate genital care. She was encouraged to wear loose to no undergarments to decrease friction and trauma to the delicate tissues that are inflamed. During a lengthy conversation, she did admit that she is a smoker and vapes, also smokes weed and on occasion uses cocaine. She did not denies any IV or injectable drug use. She does have a history of periorbital cellulitis consistent with MRSA culture. There is no drainable substance to culture in her vulvar cellulitis today. In light of no abscess that warrants surgical intervention tonight, we will allow her a regular diet. The patient and her mother are concerned that there is an abscess deeper in her pelvis. In light of her white count, and vulvar cellulitis, CT scan of the abdomen and pelvis with contrast will be performed tomorrow. Will also broaden her antibiotic coverage. She is currently using vancomycin and will add clindamycin in light of the fact that she has a Cipro and sulfa allergy. Telephone consultation with night pharmacy verbally as well this evening. Exam Const General: cooperative, healthy appearing, uncomfortable and no acute distress Nutritional Appearance: average body habitus Other: Patient has a persistent left labial cellulitis which is now encompassing the majority of the entire labia majora on the left. Still no perceived drainage. No fluctuance on palpation. Patient is exquisitely tender. Objective Last Vital Signs Temp 97.2 F L 05/15/25 16:40 Pulse 95 H 05/15/25 16:40 Resp 17 05/15/25 16:40 BP 109/71 05/15/25 16:40 Pulse Ox 95 05/15/25 16:40 Laboratory Results - last 24 hr 05/14/25 05/14/25 05/14/25 23:05 23:42 23:55 WBC 20.26 H RBC 4.20 Hgb 12.1 Hct 36.2 MCV 86 MCH 28.8 MCHC 33.4 RDW 12.4 Plt Count 293 MPV 9.6 Immature Gran % 0.6 Neutrophils % 82.7 Lymphocytes % 8.1 Monocytes % 7.2 Eosinophils % 1.1 Basophils % 0.3 Nucleated RBC % 0.0 Absolute Neutrophils 16.76 H Absolute Lymphocytes 1.64 Absolute Monocytes 1.46 H Absolute Eosinophils 0.22 Absolute Basophils 0.06 VBG Lactate 0.9 Sodium 139 Potassium 3.8 Chloride 105 Carbon Dioxide 29.3 Anion Gap 4.7 BUN 8 L Creatinine 0.56 Est GFR (CKD-EPI 2020) 126.14 Glucose 116 H Calcium 8.4 Magnesium Total Bilirubin 0.20 AST 11 ALT 10 Alkaline Phosphatase 63 C-Reactive Protein 8.43 H Total Protein 6.8 Albumin 4.2 Procalcitonin < 0.10 Urine Color Urine Clarity Urine pH Ur Specific [place] Urine Protein Urine Ketones Urine Blood Urine Nitrite Urine Bilirubin Urine Urobilinogen Ur Leukocyte Esterase Urine RBC Urine WBC Ur Epithelial Cells Urine Crystals Urine Bacteria Urine Casts Urine Mucus Ur Culture Indicated? Urine Glucose Urine HCG, Qual COVID-19 Source SARS-CoV-2 (PCR) Influenza Type A (PCR) Influenza Type B (PCR) RSV (PCR) 05/15/25 05/15/25 05/15/25 01:30 04:15 05:32 WBC RBC Hgb Hct MCV MCH MCHC RDW Plt Count MPV Immature Gran % Neutrophils % Lymphocytes % Monocytes % Eosinophils % Basophils % Nucleated RBC % Absolute Neutrophils Absolute Lymphocytes Absolute Monocytes Absolute Eosinophils Absolute Basophils VBG Lactate Sodium Potassium Chloride Carbon Dioxide Anion Gap BUN Creatinine Est GFR (CKD-EPI 2020) Glucose Calcium Magnesium Total Bilirubin AST ALT Alkaline Phosphatase C-Reactive Protein Total Protein Albumin Procalcitonin Urine Color Yellow Cancelled Urine Clarity Turbid Cancelled Urine pH 7.0 Cancelled Ur Specific [place] 1.015 Cancelled Urine Protein Negative Cancelled Urine Ketones Negative Cancelled Urine Blood Large H Cancelled Urine Nitrite Negative Cancelled Urine Bilirubin Negative Cancelled Urine Urobilinogen 0.2 Cancelled Ur Leukocyte Esterase Small H Cancelled Urine RBC 3-5 H Urine WBC 3-5 Ur Epithelial Cells Few Urine Crystals Negative Urine Bacteria Moderate Urine Casts Negative Urine Mucus Negative Ur Culture Indicated? No Urine Glucose Negative Cancelled Urine HCG, Qual COVID-19 Source Nasopharynx SARS-CoV-2 (PCR) Negative Influenza Type A (PCR) Negative Influenza Type B (PCR) Negative RSV (PCR) Negative 05/15/25 05/15/25 07:18 08:15 WBC 18.38 H RBC 3.99 Hgb 11.3 Hct 34.4 L MCV 86 MCH 28.3 MCHC 32.8 RDW 12.3 Plt Count 264 MPV 9.8 Immature Gran % Neutrophils % Lymphocytes % Monocytes % Eosinophils % Basophils % Nucleated RBC % Absolute Neutrophils Absolute Lymphocytes Absolute Monocytes Absolute Eosinophils Absolute Basophils VBG Lactate Sodium 142 Potassium 3.7 Chloride 109 H Carbon Dioxide 27.2 Anion Gap 5.8 BUN 8 L Creatinine 0.57 Est GFR (CKD-EPI 2020) 123.59 Glucose 101 Calcium 8.0 L Magnesium 1.9 Total Bilirubin 0.40 AST 66 H ALT 42 Alkaline Phosphatase 77 C-Reactive Protein Total Protein 6.3 Albumin 3.8 Procalcitonin Urine Color Urine Clarity Urine pH Ur Specific [place] Urine Protein Urine Ketones Urine Blood Urine Nitrite Urine Bilirubin Urine Urobilinogen Ur Leukocyte Esterase Urine RBC Urine WBC Ur Epithelial Cells Urine Crystals Urine Bacteria Urine Casts Urine Mucus Ur Culture Indicated? Urine Glucose Urine HCG, Qual Negative COVID-19 Source SARS-CoV-2 (PCR) Influenza Type A (PCR) Influenza Type B (PCR) RSV (PCR) VTE Prohylaxis Risk Level: Moderate/High Risk Contraindications: None Prophylaxis: Patient ambulatory Time Spent with Patient Time Spent with Patient: 35-49 minutes Time was spent: preparing to see the patient(eg.review tests), obtaining and/or reviewing separately otained hiistory, ordering medications,tests, procedures, referring, communicating with other health day care home mother, indepentently interpreting results, counseling the patient and care coordination
[2025-05-15 18:34] LABS: Vancomycin, Random 9.2 ug/mL
[2025-05-15 19:50] LABS: Glucose Negative (Negative)
[2025-05-15 19:57] LABS: WBC Negative HPF (0-5)
[2025-05-15 19:58] LABS: C & S Indicated? No
[2025-05-15] MEDS: Normal Saline - Diluent 50 ML VIAL IJ (21:25)
[2025-05-15] MEDS: Omnipaque 350 MG/ML 100 ML BTL IJ (21:26)
--- NOTE | 2025-05-15 21:53 | DI.VRAD_ITS ---
PROCEDURE INFORMATION: Exam: CT Abdomen And Pelvis With Contrast Exam date and time: 05/15/2025 9:25 PM Age: 30 years old Clinical indication: Pain; Other: Vulvar cellulitis; Prior surgery; Surgery date: 6+ months; Surgery type: Bartholin gland cyst TECHNIQUE: Imaging protocol: Computed tomography of the abdomen and pelvis with contrast. Radiation optimization: All CT scans at this facility use at least one of these dose optimization techniques: automated exposure control; mA and/or kV adjustment per patient size (includes targeted exams where dose is matched to clinical indication); or iterative reconstruction. Contrast material: OMNIPAQUE 350; Contrast volume: 75 ml; Contrast route: INTRAVENOUS (IV); COMPARISON: CT CHEST/ABD/PEL W 09/30/2024 9:44 AM FINDINGS: Lungs: Clear Liver: Normal. No mass. Gallbladder and biliary ducts: Normal. No calcified stones. No ductal dilation. Pancreas: Normal. No ductal dilation. Spleen: Normal. No splenomegaly. Adrenal glands: Normal. No mass. Kidneys and ureters: Normal. No hydronephrosis. Stomach and bowel: Large amount of stool throughout the colon and rectum. Appendix: No evidence of appendicitis. Intraperitoneal space: Unremarkable. No free air. No significant fluid collection. Vasculature: Unremarkable. No abdominal aortic aneurysm. Lymph nodes: Enlarged bilateral groin lymph nodes, [id number]-right measuring up to 2.3 cm. Urinary bladder: No focal wall thickening of the urinary bladder. Reproductive: The uterus is unremarkable. Bones/joints: No acute osseous abnormality. Soft tissues: Severe perineal edema with a 3.0 cm fluid collection in the left vulva and a 2.7 cm fluid collection in the right vulva, complex Bartholin gland cyst versus small abscesses. IMPRESSION: 1. Enlarged bilateral groin lymph nodes, [id number] measuring up to 2.3 cm. 2. Severe perineal edema with a 3.0 cm fluid collection in the left vulva and a 2.7 cm fluid collection in the right vulva, complex Bartholin gland cyst versus small abscesses. Dictated and Authenticated by: Tori Galvin MD. Orderin Dong Frey MD
[2025-05-15] MEDS: VANCOMYCIN 1,500 MG in Normal Saline 250 ML 166.667 MG IVPB (23:15)
[2025-05-16] MEDS: Ketorolac 15 MG/ML VIAL IVP (02:52)
[2025-05-16] MEDS: Acetaminophen 325 MG TAB 650 MG PO (02:52)
--- NOTE | 2025-05-16 03:41 | DSE_ITS ---
Date of service: 05/16/25 Time of Service: 03:41 DS: Diagnosis Discharge Diagnosis (1) Cellulitis of labia majora: Status: Acute Discharge Plan Disposition Patient Disposition: Against Medical Advice Anticipated Discharge Date/Time: 05/16/25 03:41 Condition: Stable Discharge Details Reason For Visit: Cellulitis/Abscess Left Labia Admit Date/Time: 05/15/25 03:42 Admit Provider: Reji Gonzalez Attending Provider: Reji Gonzalez Primary Care Provider: Ashutosh Carrero Hospital Course Hospital Course: Pt was admitted for cellulitis. Pt left AMA 07/16 visitor policy. Pt is aware that she will not be given medication on d/c. Pt states that she will be going to a different hospital. Pt was in the bathroom and would not come out Home Meds and New Rx's Prescriptions: No Action No Known Home Meds Discharge Instructions Stand Alone Forms: Portal Information Equipment/Supplies:: No Equipment Needed Diet:: As Tolerated DS: Summary Time Spent with Patient providing and/or coordinating discharge services: Less than 30 minutes Status at Discharge Functional status at discharge: independent ambulation Overall status at discharge: patient is not back to baseline Mental Status: mental status grossly normal Speech and Movement: agitated Mood: irritable mood Affect: hostile Quality:SDOH Health Related Social Needs: Health related social needs risk of homeless lonely/is olated Exam Psych Mental Status: mental status grossly normal Speech and Movement: agitated Mood: irritable mood Affect: hostile DS: Data Vitals/I&O Vitals and I&O: Vital Signs Temperature 36.2 C L 05/15/25 16:40 Temperature Source Temporal Artery Scan 05/15/25 21:38 Pulse 95 H 05/15/25 16:40 Pulse Rhythm Regular 05/15/25 05:38 Respiratory Rate 17 05/15/25 16:40 Respiratory Effort Normal 05/15/25 05:38 Respiratory Depth Normal 05/15/25 05:38 Blood Pressure 109/71 05/15/25 16:40 Blood Pressure Mean 83 05/15/25 16:40 Blood Pressure Position Sitting 05/14/25 22:20 Pulse Oximetry 95 05/15/25 16:40 Oxygen Delivery Method Room Air 05/15/25 16:40 Oxygen Flow Rate 0 05/15/25 16:40 Pain Level 7 05/15/25 21:35 Comment pt off unit 05/15/25 16:03 Intake & Output 05/15/25 05/15/25 05/16/25 11:59 23:59 11:59 Intake Total 1650 / 2530 880 / 2530 250 / 250 Output Total 400 / 1350 950 / 1350 Balance 1250 / 1180 -70 / 1180 250 / 250 Weight 81.647 kg Intake: IV 1650 / 1670 20 / 1670 250 / 250 Oral 860 / 860 Output: Urine 400 / 1350 950 / 1350 Other: Urine Color Yellow Yellow Urine Appearance Cloudy Cloudy Urine Odor None Comment urine sample collected from the new hat Data Completed and Pending Pending Labs at Discharge: 05/14/25 05/14/25 05/14/25 23:05 23:42 23:55 WBC 20.26 H RBC 4.20 Hgb 12.1 Hct 36.2 MCV 86 MCH 28.8 MCHC 33.4 RDW 12.4 Plt Count 293 MPV 9.6 Immature Gran % 0.6 Neutrophils % 82.7 Lymphocytes % 8.1 Monocytes % 7.2 Eosinophils % 1.1 Basophils % 0.3 Nucleated RBC % 0.0 Absolute Neutrophils 16.76 H Absolute Lymphocytes 1.64 Absolute Monocytes 1.46 H Absolute Eosinophils 0.22 Absolute Basophils 0.06 VBG Lactate 0.9 Sodium 139 Potassium 3.8 Chloride 105 Carbon Dioxide 29.3 Anion Gap 4.7 BUN 8 L Creatinine 0.56 Est GFR (CKD-EPI 2020) 126.14 Glucose 116 H Calcium 8.4 Magnesium Total Bilirubin 0.20 AST 11 ALT 10 Alkaline Phosphatase 63 C-Reactive Protein 8.43 H Total Protein 6.8 Albumin 4.2 Procalcitonin < 0.10 Urine Color Urine Clarity Urine pH Ur Specific [place] Urine Protein Urine Ketones Urine Blood Urine Nitrite Urine Bilirubin Urine Urobilinogen Ur Leukocyte Esterase Urine RBC Urine WBC Ur Epithelial Cells Urine Crystals Urine Bacteria Urine Casts Urine Mucus Ur Culture Indicated? Urine Glucose Urine HCG, Qual Random Vancomycin Urine Opiates Screen Urine Methadone Screen Ur Barbiturates Screen Ur Tricyclics Screen Ur Amphetamines Screen U Benzodiazepines Scrn Urine Cocaine Screen U Cannabinoids Screen COVID-19 Source SARS-CoV-2 (PCR) Influenza Type A (PCR) Influenza Type B (PCR) RSV (PCR) 05/15/25 05/15/25 05/15/25 01:30 04:15 05:32 WBC RBC Hgb Hct MCV MCH MCHC RDW Plt Count MPV Immature Gran % Neutrophils % Lymphocytes % Monocytes % Eosinophils % Basophils % Nucleated RBC % Absolute Neutrophils Absolute Lymphocytes Absolute Monocytes Absolute Eosinophils Absolute Basophils VBG Lactate Sodium Potassium Chloride Carbon Dioxide Anion Gap BUN Creatinine Est GFR (CKD-EPI 2020) Glucose Calcium Magnesium Total Bilirubin AST ALT Alkaline Phosphatase C-Reactive Protein Total Protein Albumin Procalcitonin Urine Color Yellow Cancelled Urine Clarity Turbid Cancelled Urine pH 7.0 Cancelled Ur Specific [place] 1.015 Cancelled Urine Protein Negative Cancelled Urine Ketones Negative Cancelled Urine Blood Large H Cancelled Urine Nitrite Negative Cancelled Urine Bilirubin Negative Cancelled Urine Urobilinogen 0.2 Cancelled Ur Leukocyte Esterase Small H Cancelled Urine RBC 3-5 H Urine WBC 3-5 Ur Epithelial Cells Few Urine Crystals Negative Urine Bacteria Moderate Urine Casts Negative Urine Mucus Negative Ur Culture Indicated? No Urine Glucose Negative Cancelled Urine HCG, Qual Random Vancomycin Urine Opiates Screen Urine Methadone Screen Ur Barbiturates Screen Ur Tricyclics Screen Ur Amphetamines Screen U Benzodiazepines Scrn Urine Cocaine Screen U Cannabinoids Screen COVID-19 Source Nasopharynx SARS-CoV-2 (PCR) Negative Influenza Type A (PCR) Negative Influenza Type B (PCR) Negative RSV (PCR) Negative 05/15/25 05/15/25 05/15/25 07:18 08:15 18:12 WBC 18.38 H RBC 3.99 Hgb 11.3 Hct 34.4 L MCV 86 MCH 28.3 MCHC 32.8 RDW 12.3 Plt Count 264 MPV 9.8 Immature Gran % Neutrophils % Lymphocytes % Monocytes % Eosinophils % Basophils % Nucleated RBC % Absolute Neutrophils Absolute Lymphocytes Absolute Monocytes Absolute Eosinophils Absolute Basophils VBG Lactate Sodium 142 Potassium 3.7 Chloride 109 H Carbon Dioxide 27.2 Anion Gap 5.8 BUN 8 L Creatinine 0.57 Est GFR (CKD-EPI 2020) 123.59 Glucose 101 Calcium 8.0 L Magnesium 1.9 Total Bilirubin 0.40 AST 66 H ALT 42 Alkaline Phosphatase 77 C-Reactive Protein Total Protein 6.3 Albumin 3.8 Procalcitonin Urine Color Yellow Urine Clarity Sl Cloudy Urine pH 5.5 Ur Specific [place] >= 1.030 H Urine Protein Trace Urine Ketones Trace H Urine Blood Moderate H Urine Nitrite Positive H Urine Bilirubin Negative Urine Urobilinogen 0.2 Ur Leukocyte Esterase Negative Urine RBC 5-10 H Urine WBC Negative Ur Epithelial Cells Rare Urine Crystals Many Amorphous Urine Bacteria Packed Urine Casts Negative Urine Mucus Negative Ur Culture Indicated? No Urine Glucose Negative Urine HCG, Qual Negative Random Vancomycin 9.2 Urine Opiates Screen Positive A Urine Methadone Screen Negative Ur Barbiturates Screen Negative Ur Tricyclics Screen Negative Ur Amphetamines Screen Negative U Benzodiazepines Scrn Negative Urine Cocaine Screen Positive A U Cannabinoids Screen Pending COVID-19 Source SARS-CoV-2 (PCR) Influenza Type A (PCR) Influenza Type B (PCR) RSV (PCR) 05/16/25 05:35 WBC Pending RBC Pending Hgb Pending Hct Pending MCV Pending MCH Pending MCHC Pending RDW Pending Plt Count Pending MPV Pending Immature Gran % Neutrophils % Lymphocytes % Monocytes % Eosinophils % Basophils % Nucleated RBC % Absolute Neutrophils Absolute Lymphocytes Absolute Monocytes Absolute Eosinophils Absolute Basophils VBG Lactate Sodium Pending Potassium Pending Chloride Pending Carbon Dioxide Pending Anion Gap Pending BUN Pending Creatinine Pending Est GFR (CKD-EPI 2020) Pending Glucose Pending Calcium Pending Magnesium Pending Total Bilirubin Pending AST Pending ALT Pending Alkaline Phosphatase Pending C-Reactive Protein Total Protein Pending Albumin Pending Procalcitonin Urine Color Urine Clarity Urine pH Ur Specific [place] Urine Protein Urine Ketones Urine Blood Urine Nitrite Urine Bilirubin Urine Urobilinogen Ur Leukocyte Esterase Urine RBC Urine WBC Ur Epithelial Cells Urine Crystals Urine Bacteria Urine Casts Urine Mucus Ur Culture Indicated? Urine Glucose Urine HCG, Qual Random Vancomycin Urine Opiates Screen Urine Methadone Screen Ur Barbiturates Screen Ur Tricyclics Screen Ur Amphetamines Screen U Benzodiazepines Scrn Urine Cocaine Screen U Cannabinoids Screen COVID-19 Source SARS-CoV-2 (PCR) Influenza Type A (PCR) Influenza Type B (PCR) RSV (PCR) Preliminary micro results at discharge 05/14/25 23:55 Blood Blood Culture - Preliminary NO GROWTH 24 HOURS 05/14/25 23:47 Blood Blood Culture - Preliminary NO GROWTH 24 HOURS PFSH All Active Problems Cellulitis of labia majora (Acute) MRSA (methicillin resistant Staphylococcus aureus) (Chronic) Cellulitis of labia majora (Acute) Preseptal cellulitis (Acute) Periorbital cellulitis (Acute) Pelvic pain (Acute) Menorrhagia (Acute) Tendinopathy of left biceps tendon (Acute) Screen for STD (sexually transmitted disease) (Acute) Impingement syndrome, shoulder, left (Acute) Internal and external thrombosed hemorrhoids (Acute) Status post tubal ligation (Acute) Adjustment disorder with mixed anxiety and depressed mood (Acute) HGSIL (high grade squamous intraepithelial lesion) on Pap smear of cervix (Acute) Repeat PAP PP Marijuana smoker (Acute) Tobacco dependence (Chronic) Medical History SLAP lesion of left shoulder Biceps tendinitis of left shoulder Contraception Cholelithiasis (03/30/14) Surgical History [place] teeth extracted Bartholin gland cyst H/O pilonidal cyst History of tonsillectomy w/ adnoidectomy Cholecystectomy (03/30/14) Family History Mother Personal history of gallstones cholecystectomy in her 20's Family history of gallstones several women required surgery at fairly young age Abnormal Pap smear of cervix Sister Abnormal Pap smear of cervix Other Cancer Diabetes Heart disease Social History Smoking/Tobacco Use Status: Current every day Tobacco Type: cigarettes and e- cigarettes Smoking risk assessment performed?: Yes Alcohol Intake: former Drug use: Occasionally Substance use type: marijuana and crack/cocaine Household members: children and other Details: daughter is named Dewy Rose Housing: house Number of Children: 1 Current gender identity: female Do you feel safe at home: Yes Do you feel safe in your relationship?: Yes Female Reproductive History Menstrual control method: none History History 2 Para 2 Hx # Term Pregnancies 2 Multiple births 0 Hx # Pregnancies 0 Ectopic pregnancies 0 AB induced 0 Hx Number of Living Children 2 AB spontaneous 0 Past Pregnancies Del. Date GA/Weeks # Preg Succ Route Wgt Sex Labor Lgth Anesth esia Location [facility] 03/09/14 40 No vaginal 3288.545 g Female 4.5 hrs d r dege other 02/17/19 37 No vaginal 3061.748 g Male Sophy George CNM Delivery Date: 03/09/14 Last Updated by: Sophy George CNM 3 stiches pp. Time Spent with Patient Time Spent with Patient: <45 minutes Time was spent: preparing to see the patient(eg.review tests), obtaining and/or reviewing separately otained hiistory, ordering medications,tests, procedures, referring, communicating with other health coronary care unit nurse, indepentently interpreting results, counseling the patient and care coordination
--- NOTE | 2025-05-16 03:43 | W.PM.DS.N ---
Date of service: 05/16/25 Time of Service: 03:44 DS: Diagnosis Discharge Diagnosis (1) Cellulitis of labia majora: Status: Acute Discharge Plan Disposition Patient Disposition: Against Medical Advice Anticipated Discharge Date/Time: 05/16/25 03:41 Condition: Stable Discharge Details Reason For Visit: Cellulitis/Abscess Left Labia Admit Date/Time: 05/15/25 03:42 Admit Provider: Reji Gonzalez Attending Provider: Reji Gonzalez Primary Care Provider: Ashutosh Carrero Hospital Course Hospital Course: Pt was admitted for cellulitis. Pt left AMA 2/ visitor policy. Pt is aware that she will not be given medication on d/c. Pt states that she will be going to a different hospital. Pt was in the bathroom and would not come out Home Meds and New Rx's Prescriptions: No Action No Known Home Meds Discharge Instructions Stand Alone Forms: Portal Information Equipment/Supplies:: No Equipment Needed Diet:: As Tolerated DS: Summary Time Spent with Patient providing and/or coordinating discharge services: Less than 30 minutes Specific discharge activities: left ama Status at Discharge Functional status at discharge: independent ambulation Overall status at discharge: patient is not back to baseline Mental Status: mental status grossly normal Speech and Movement: agitated Mood: irritable mood Affect: hostile Quality:SDOH Health Related Social Needs: Health related social needs risk of homeless lonely/isolated Exam Narrative Exam Narrative: deferred Psych Mental Status: mental status grossly normal Speech and Movement: agitated Mood: irritable mood Affect: hostile DS: Data Vitals/I&O Vitals and I&O: Vital Signs Temperature 36.2 C L 05/15/25 16:40 Temperature Source Temporal Artery Scan 05/15/25 21:38 Pulse 95 H 05/15/25 16:40 Pulse Rhythm Regular 05/15/25 05:38 Respiratory Rate 17 05/15/25 16:40 Respiratory Effort Normal 05/15/25 05:38 Respiratory Depth Normal 05/15/25 05:38 Blood Pressure 109/71 05/15/25 16:40 Blood Pressure Mean 83 05/15/25 16:40 Blood Pressure Position Sitting 05/14/25 22:20 Pulse Oximetry 95 05/15/25 16:40 Oxygen Delivery Method Room Air 05/15/25 16:40 Oxygen Flow Rate 0 05/15/25 16:40 Pain Level 7 05/15/25 21:35 Comment pt off unit 05/15/25 16:03 Intake & Output 05/15/25 05/15/25 05/16/25 11:59 23:59 11:59 Intake Total 1650 / 2530 880 / 2530 250 / 250 Output Total 400 / 1350 950 / 1350 Balance 1250 / 1180 -70 / 1180 250 / 250 Weight 81.647 kg Intake: IV 1650 / 1670 20 / 1670 250 / 250 Oral 860 / 860 Output: Urine 400 / 1350 950 / 1350 Other: Urine Color Yellow Yellow Urine Appearance Cloudy Cloudy Urine Odor None Comment urine sample collected from the [facility] Data Completed and Pending Pending Labs at Discharge: 05/14/25 05/14/25 05/14/25 23:05 23:42 23:55 WBC 20.26 H RBC 4.20 Hgb 12.1 Hct 36.2 MCV 86 MCH 28.8 MCHC 33.4 RDW 12.4 Plt Count 293 MPV 9.6 Immature Gran % 0.6 Neutrophils % 82.7 Lymphocytes % 8.1 Monocytes % 7.2 Eosinophils % 1.1 Basophils % 0.3 Nucleated RBC % 0.0 Absolute Neutrophils 16.76 H Absolute Lymphocytes 1.64 Absolute Monocytes 1.46 H Absolute Eosinophils 0.22 Absolute Basophils 0.06 VBG Lactate 0.9 Sodium 139 Potassium 3.8 Chloride 105 Carbon Dioxide 29.3 Anion Gap 4.7 BUN 8 L Creatinine 0.56 Est GFR (CKD-EPI 2020) 126.14 Glucose 116 H Calcium 8.4 Magnesium Total Bilirubin 0.20 AST 11 ALT 10 Alkaline Phosphatase 63 C-Reactive Protein 8.43 H Total Protein 6.8 Albumin 4.2 Procalcitonin < 0.10 Urine Color Urine Clarity Urine pH Ur Specific [place] Urine Protein Urine Ketones Urine Blood Urine Nitrite Urine Bilirubin Urine Urobilinogen Ur Leukocyte Esterase Urine RBC Urine WBC Ur Epithelial Cells Urine Crystals Urine Bacteria Urine Casts Urine Mucus Ur Culture Indicated? Urine Glucose Urine HCG, Qual Random Vancomycin Urine Opiates Screen Urine Methadone Screen Ur Barbiturates Screen Ur Tricyclics Screen Ur Amphetamines Screen U Benzodiazepines Scrn Urine Cocaine Screen U Cannabinoids Screen COVID-19 Source SARS-CoV-2 (PCR) Influenza Type A (PCR) Influenza Type B (PCR) RSV (PCR) 05/15/25 05/15/25 05/15/25 01:30 04:15 05:32 WBC RBC Hgb Hct MCV MCH MCHC RDW Plt Count MPV Immature Gran % Neutrophils % Lymphocytes % Monocytes % Eosinophils % Basophils % Nucleated RBC % Absolute Neutrophils Absolute Lymphocytes Absolute Monocytes Absolute Eosinophils Absolute Basophils VBG Lactate Sodium Potassium Chloride Carbon Dioxide Anion Gap BUN Creatinine Est GFR (CKD-EPI 2020) Glucose Calcium Magnesium Total Bilirubin AST ALT Alkaline Phosphatase C-Reactive Protein Total Protein Albumin Procalcitonin Urine Color Yellow Cancelled Urine Clarity Turbid Cancelled Urine pH 7.0 Cancelled Ur Specific [place] 1.015 Cancelled Urine Protein Negative Cancelled Urine Ketones Negative Cancelled Urine Blood Large H Cancelled Urine Nitrite Negative Cancelled Urine Bilirubin Negative Cancelled Urine Urobilinogen 0.2 Cancelled Ur Leukocyte Esterase Small H Cancelled Urine RBC 3-5 H Urine WBC 3-5 Ur Epithelial Cells Few Urine Crystals Negative Urine Bacteria Moderate Urine Casts Negative Urine Mucus Negative Ur Culture Indicated? No Urine Glucose Negative Cancelled Urine HCG, Qual Random Vancomycin Urine Opiates Screen Urine Methadone Screen Ur Barbiturates Screen Ur Tricyclics Screen Ur Amphetamines Screen U Benzodiazepines Scrn Urine Cocaine Screen U Cannabinoids Screen COVID-19 Source Nasopharynx SARS-CoV-2 (PCR) Negative Influenza Type A (PCR) Negative Influenza Type B (PCR) Negative RSV (PCR) Negative 05/15/25 05/15/25 05/15/25 07:18 08:15 18:12 WBC 18.38 H RBC 3.99 Hgb 11.3 Hct 34.4 L MCV 86 MCH 28.3 MCHC 32.8 RDW 12.3 Plt Count 264 MPV 9.8 Immature Gran % Neutrophils % Lymphocytes % Monocytes % Eosinophils % Basophils % Nucleated RBC % Absolute Neutrophils Absolute Lymphocytes Absolute Monocytes Absolute Eosinophils Absolute Basophils VBG Lactate Sodium 142 Potassium 3.7 Chloride 109 H Carbon Dioxide 27.2 Anion Gap 5.8 BUN 8 L Creatinine 0.57 Est GFR (CKD-EPI 2020) 123.59 Glucose 101 Calcium 8.0 L Magnesium 1.9 Total Bilirubin 0.40 AST 66 H ALT 42 Alkaline Phosphatase 77 C-Reactive Protein Total Protein 6.3 Albumin 3.8 Procalcitonin Urine Color Yellow Urine Clarity Sl Cloudy Urine pH 5.5 Ur Specific [place] >= 1.030 H Urine Protein Trace Urine Ketones Trace H Urine Blood Moderate H Urine Nitrite Positive H Urine Bilirubin Negative Urine Urobilinogen 0.2 Ur Leukocyte Esterase Negative Urine RBC 5-10 H Urine WBC Negative Ur Epithelial Cells Rare Urine Crystals Many Amorphous Urine Bacteria Packed Urine Casts Negative Urine Mucus Negative Ur Culture Indicated? No Urine Glucose Negative Urine HCG, Qual Negative Random Vancomycin 9.2 Urine Opiates Screen Positive A Urine Methadone Screen Negative Ur Barbiturates Screen Negative Ur Tricyclics Screen Negative Ur Amphetamines Screen Negative U Benzodiazepines Scrn Negative Urine Cocaine Screen Positive A U Cannabinoids Screen Pending COVID-19 Source SARS-CoV-2 (PCR) Influenza Type A (PCR) Influenza Type B (PCR) RSV (PCR) 05/16/25 05:35 WBC Pending RBC Pending Hgb Pending Hct Pending MCV Pending MCH Pending MCHC Pending RDW Pending Plt Count Pending MPV Pending Immature Gran % Neutrophils % Lymphocytes % Monocytes % Eosinophils % Basophils % Nucleated RBC % Absolute Neutrophils Absolute Lymphocytes Absolute Monocytes Absolute Eosinophils Absolute Basophils VBG Lactate Sodium Pending Potassium Pending Chloride Pending Carbon Dioxide Pending Anion Gap Pending BUN Pending Creatinine Pending Est GFR (CKD-EPI 2020) Pending Glucose Pending Calcium Pending Magnesium Pending Total Bilirubin Pending AST Pending ALT Pending Alkaline Phosphatase Pending C-Reactive Protein Total Protein Pending Albumin Pending Procalcitonin Urine Color Urine Clarity Urine pH Ur Specific [place] Urine Protein Urine Ketones Urine Blood Urine Nitrite Urine Bilirubin Urine Urobilinogen Ur Leukocyte Esterase Urine RBC Urine WBC Ur Epithelial Cells Urine Crystals Urine Bacteria Urine Casts Urine Mucus Ur Culture Indicated? Urine Glucose Urine HCG, Qual Random Vancomycin Urine Opiates Screen Urine Methadone Screen Ur Barbiturates Screen Ur Tricyclics Screen Ur Amphetamines Screen U Benzodiazepines Scrn Urine Cocaine Screen U Cannabinoids Screen COVID-19 Source SARS-CoV-2 (PCR) Influenza Type A (PCR) Influenza Type B (PCR) RSV (PCR) Preliminary micro results at discharge 05/14/25 23:55 Blood Blood Culture - Preliminary NO GROWTH 24 HOURS 05/14/25 23:47 Blood Blood Culture - Preliminary NO GROWTH 24 HOURS PFSH All Active Problems Cellulitis of labia majora (Acute) MRSA (methicillin resistant Staphylococcus aureus) (Chronic) Cellulitis of labia majora (Acute) Preseptal cellulitis (Acute) Periorbital cellulitis (Acute) Pelvic pain (Acute) Menorrhagia (Acute) Tendinopathy of left biceps tendon (Acute) Screen for STD (sexually transmitted disease) (Acute) Impingement syndrome, shoulder, left (Acute) Internal and external thrombosed hemorrhoids (Acute) Status post tubal ligation (Acute) Adjustment disorder with mixed anxiety and depressed mood (Acute) HGSIL (high grade squamous intraepithelial lesion) on Pap smear of cervix (Acute) Repeat PAP PP Marijuana smoker (Acute) Tobacco dependence (Chronic) Medical History SLAP lesion of left shoulder Biceps tendinitis of left shoulder Contraception Cholelithiasis (03/30/14) Surgical History [place] teeth extracted Bartholin gland cyst H/O pilonidal cyst History of tonsillectomy w/ adnoidectomy Cholecystectomy (03/30/14) Family History Mother Personal history of gallstones cholecystectomy in her 20's Family history of gallstones several women required surgery at fairly young age Abnormal Pap smear of cervix Sister Abnormal Pap smear of cervix Other Cancer Diabetes Heart disease Social History Smoking/Tobacco Use Status: Current every day Tobacco Type: cigarettes and e-cigarettes Smoking risk assessment performed?: Yes Alcohol Intake: former Drug use: Occasionally Substance use type: marijuana and crack/cocaine Household members: children and other Details: daughter is named [place] Housing: house Number of Children: 1 Current gender identity: female Do you feel safe at home: Yes Do you feel safe in your relationship?: Yes Female Reproductive History Menstrual control method: none History History 2 Para 2 Hx # Term Pregnancies 2 Multiple births 0 Hx # Pregnancies 0 Ectopic pregnancies 0 AB induced 0 Hx Number of Living Children 2 AB spontaneous 0 Past Pregnancies Del. Date GA/Weeks # Preg Succ Route Wgt Sex Labor Lgth Anesthesia Location Prov Complic 03/09/14 40 No vaginal 3288.545 g Female 4.[address] ariel harrison 02/17/19 37 No vaginal 3061.748 g Male Sophy Hussein CNM Delivery Date: 03/09/14 Last Updated by: Sophy Hussein CNM [facility] pp. Time Spent with Patient Time Spent with Patient: <45 minutes Time was spent: preparing to see the patient(eg.review tests), obtaining and/or reviewing separately otained hiistory, ordering medications,tests, procedures, referring, communicating with other health ostomy care nurse, indepentently interpreting results, counseling the patient and care coordination
--- NOTE | 2025-05-16 04:07 | NUR.NOTE ---
Nursing Note:Pt. was prior educated about the consequence of going home AMA without medical supervision especially on her infection and pain management. Dr. Calles also came to see the pt. and converse with the pt. Pt. insisted to go home with the PIV but it was unsuccesful because the CN is there to halt the pt. going home with the PIV,eventually Ann-Marie the warehouse distribution specialist able to removed the PIV pt. allow her..
[2025-05-17 16:52] LABS: Cannabinoids THC Negative (Negative)
== END 2025-05-16 03:57 | disposition left against medical advice (07) | DRG 759 ==
LOC: ER 05-15 03:57 → MS 05-15 05:36
PROVIDERS: Family Medicine; Admitting Provider Family Medicine; Emergency Provider Student in an Organized Health Care Education/Training Program; PCP Physician Assistant; Responsible Provider Nurse Practitioner Family; Visit Provider Family Medicine
DX: N76.2 Acute vulvitis (principal); N92.0 Excessive and frequent menstruation with regular cycle; Z86.14 Personal history of Methicillin resistant Staphylococcus aureus infection; F43.23 Adjustment disorder with mixed anxiety and depressed mood; F12.90 Cannabis use, unspecified, uncomplicated; F17.210 Nicotine dependence, cigarettes, uncomplicated; F14.90 Cocaine use, unspecified, uncomplicated
CPT/HCPCS: 00123; 36415; 56405; 76857; 80053; 80307; 81025; 84145; 85027; 87040; 87637; 96361; 96365; 96367; 96375; 99285; J1650; 72193; 80202; 81003; 81015; 83605; 83735; 85025; 86140; 99222; 99238; J0131; J0737; J1171; J1885; J2003; J2270; J3373; J3490